=== PATIENT | male | born 1955 | race Caucasian/White ===

== ENCOUNTER 2023-02-19 17:53 | Emergency (ER) | payer MEDICARE, MEDICAID, SELFPAY ==
--- NOTE | ~2023-02-19 | CT_ITS ---
EXAMINATION: CT HEAD WITHOUT CONTRAST CLINICAL INFORMATION: Fall. EtOH. COMPARISON: CT head from 11/14/2014. TECHNIQUE: Contiguous axial imaging was performed from the skull base to vertex without intravenous administration of contrast. This CT examination was performed using dose optimization techniques as appropriate, variously including the following: *Automated exposure control. *Adjustment of mA and/or kV according to patient size (this includes techniques or standardized protocols for targeted exams where dose is matched to indication/reason for exam; i.e. extremities or head). *Use of iterative reconstruction technique. DLP: 805 mGy-cm FINDINGS: There is chronic cystic encephalomalacia within the left frontoparietal lobes with associated volume loss. No additional loss of العلي-white matter differentiation. No evidence of acute intracranial hemorrhage. Scattered and partially confluent hypoattenuation in the periventricular and deep white matter are consistent with moderate microangiopathy. Proportional prominence of the ventricles and sulcal spaces without evidence of obstructive hydrocephalus. Chronic calcified lesion within the inferior aspect of the fourth ventricle. No abnormal mass effect or midline shift. No extra-axial fluid collections. No acute soft tissue or osseous abnormalities. Mild mucosal thickening of the paranasal sinuses. The mastoid air cells and middle ear cavities are clear. The patient is a dentulous. CT/CT head/brain wo IV con IMPRESSION: 1. No evidence of acute intracranial hemorrhage or edematous territorial infarction. 2. Chronic cystic encephalomalacia within the left frontoparietal lobes. Moderate underlying microangiopathy and generalized cerebral volume loss.
[2023-02-19 18:04] VITALS: BP 162/84; PULSE 62; O2SAT 97
[2023-02-19 18:31] VITALS: BP 144/68; PULSE 48; RESP 16; TEMP 37.2; O2SAT 97; BMI 21.2
--- NOTE | 2023-02-19 18:32 | ECG_ITS ---
Test Reason : ETOH/SUBSTANCE Blood Pressure : / mmHG Vent. Rate : 091 BPM Atrial Rate : 091 BPM P-R Int : 164 ms QRS Dur : 096 ms QT Int : 386 ms P-R-T Axes : 066 -13 085 degrees QTc Int : 474 ms Sinus rhythm with frequent Premature ventricular complexes in a pattern of bigeminy Possible Left atrial enlargement Left ventricular hypertrophy with repolarization abnormality ( Nate product ) Abnormal ECG When compared with ECG of 02-JAN-2014 15:49, Premature ventricular complexes are now Present Referred By: Xenia Ellis Electronically Signed By:BANDAR JAMES
--- NOTE | 2023-02-19 18:32 | PC.NURSE ---
per ems - pt's walker was covered in feces and left at the [employer] in [place]
--- NOTE | 2023-02-19 18:34 | ED.GENADULT ---
HPI - General Adult General Chief complaint: ETOH/Substance Use Stated complaint: Fall w/ NO head strike, ETOH? Time Seen by Provider: 02/19/23 18:05 Source: patient and EMS Mode of arrival: EMS Limitations: other (CVA) History of Present Illness HPI narrative: Patient comes to the emergency room via ambulance. Alcohol intoxication suspected per EMS. Patient was found in a [employer] [place] in [place]. Patient had an unwitnessed fall, patient was found covered in feces. Patient states that he feels well. Patient is poor historian, patient has history of CVA. Patient states that he left his walker at the [employer] store Related Data Home Medications Medication Instructions Recorded Confirmed multivitamin 1 tab PO DAILY 09/11/20 09/10/21 beta-sitosterol 125 mg-vit D3 10 tab PO 09/10/21 09/10/21 xeu-laoosxws-pfoasleus 250 mg tablet krill 350 mg-omega-3 90 mg-dha 24 cap PO 09/10/21 09/10/21 mg-epa 50 yt-kpjbskf-norpb capsule (MegaRed Ellsworth-3 Krill Oil) Previous Rx's Medication Instructions Recorded tadalafil 2.5 mg tablet (Cialis) 2.5 mg PO DAILY 30 days #30 tabs 09/11/20 aspirin 81 mg tablet,delayed 81 mg PO DAILY 90 days #90 tabs 09/10/21 release hydralazine 100 mg tablet 100 mg PO BID 90 days #180 tabs 09/10/21 lisinopril 40 mg tablet 40 mg PO DAILY 90 days #90 tabs 09/10/21 triamcinolone acetonide 0.1 % 1 appl topical DAILY 30 days #80 09/10/21 topical cream grams sennosides 8.6 mg tablet (senna) 8.6 mg PO BEDTIME PRN constipation 04/04/22 90 days #90 tabs amlodipine 10 mg tablet 10 mg PO DAILY 90 days #90 tabs 06/21/22 omeprazole 20 mg capsule,delayed 20 mg PO DAILY 90 days #90 caps 06/21/22 release Allergies Allergy/AdvReac Type Severity Reaction Status Date / Time No Known Allergies Allergy Verified 02/19/23 18:30 Review of Systems Review of Systems: Yes Other (Patient is poor historian) [facility] Past Medical History Medical History Hypertension Psoriasis Stroke Surgical History History of inguinal hernia repair Family History Family History Father Cancer Mother Lung cancer Social History Social History Alcohol intake: current Alcohol intake frequency: a few times a week Alcohol type: hard liquor Patient Tobacco Use Status: Current someday Tobacco user Tobacco use type: Cigarette Cigarettes Per Day: 3 Smoked in Last 30 Days: No Use of substances other than those prescribed or required for medical reasons: No Advance Directives: No Advance Directives Information Provided: No Physical Exam ED Vital Signs: Vital Signs - 24 hr 02/19/23 18:31 02/19/23 18:35 02/19/23 20:00 Temperature 99.0 F 99.0 F 98.6 F Pulse Rate 48 L 56 42 L Respiratory Rate 16 16 14 Blood Pressure 144/68 H 144/68 H 125/69 Pulse Oximetry 97 97 97 Oxygen Delivery Method Room Air Room Air Room Air BMI result Body Mass Index 21.2 Const Other: Appearance: Alert. Oriented X3. No acute distress. Patient seems to be intoxicated? Eyes: Pupils equal, round and reactive to light. ENT: Pharynx normal. Dry oral mucosa Neck: Normal inspection. Neck supple. No lymph nodes noted. No crepitus CVS: Normal heart rate and rhythm. Pulses normal. Normal S1 and S2 Respiratory: No respiratory distress. Breath sounds normal. No Wheezing. No rales Abdomen: Soft and nontender. No rigidity. No distention. Patient covered in diarrhea Skin: Skin warm and dry. Normal skin color. Normal skin turgor. Extremities: No lower extremity edema. No Lacerations. 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 Medications Administered Generic Name Dose Route Start Last Admin Trade Name Freq PRN Reason Stop Dose Admin Sodium Chloride 2,000 mls @ 999 mls/hr 02/19/23 21:10 02/19/23 21:34 Ns IVCONT 02/19/23 23:10 999 mls/hr .Q2H1M ONE Administration Medical Decision Making Medical Decision Making [facility] Narrative: -my interpretation of labs: Patient has a normal white blood cell count, patient is slightly anemic. Creatinine 1.65, likely secondary to diarrhea. Patient is being hydrated with IV fluids. Plan: We will recheck labs, if creatinine improves, patient will need to be seen by case management and physical therapy. Otherwise, patient should be admitted. -patient's alcohol level is negative. CT scan does not show any acute abnormality, only chronic changes. -I do not believe that patient is safe to be discharged home. Patient cannot take care of himself. -iris spoke with case management. If patient cannot be admitted, case management will see the patient -sign out given to Dr. cordero Differential Diagnosis Differential Diagnoses: The differential diagnosis associated with the presentation includes (Diarrhea, encephalopathy, dehydration) Admission/Observation Consideration of admission/observation: Escalation of care including admission/observation considered Lab Data [facility] Lab Attestation statement: I reviewed the patient's lab results. 02/19/23 19:36 02/19/23 19:36 Labs: Lab Results 02/19/23 02/19/23 02/19/23 Range/Units 19:36 19:36 19:36 WBC 10.7 (4.8-10.8) X10*3/uL RBC 4.17 L (4.60-5.80) X10*6/uL Hgb 12.7 L (14.0-18.0) g/dl Hct 37.4 L (42.0-52.0) % MCV 89.7 (80.0-98.0) fL MCH 30.5 (27.0-33.0) pg MCHC 34.0 (31.0-36.0) g/dl RDW 14.9 (11.0-16.0) % Plt Count 280 (160-400) X10*3/uL MPV 10.6 (9.4-12.4) fL Immature Gran % (Auto) 0.2 (0.0-0.4) % Neut % (Auto) 79.9 H (45-73) % Lymph % (Auto) 8.8 L (20-40) % Morrow % (Auto) 10.0 (2-11) % Eos % (Auto) 0.4 (0-4) % Baso % (Auto) 0.7 (0-2) % Lymph # (Auto) 0.9 L (1.2-4.9) X10*3/uL Morrow # (Auto) 1.1 (0.1-1.2) X10*3/uL Eos # (Auto) 0.0 (0.0-0.4) X10*3/uL Baso # (Auto) 0.1 (0.0-0.2) X10*3/uL Abs Immat Gran (auto) 0.02 (0.00-0.03) X10*3/uL Absolute Neuts (auto) 8.6 H (2.0-8.3) x10*3/uL Absolute Nucleated RBC 0.000 (0.0-0.012) X10*3/uL Nucleated RBC % (auto) 0.0 (0.0-0.2) /100WBC PT 11.5 (11.1-13.3) SEC INR 0.9 (0.9-1.1) Sodium 138 (135-145) mmol/L Potassium 3.5 (3.3-5.1) mmol/L Chloride 103 (96-108) mmol/L Carbon Dioxide 25 (22-29) mmol/L Anion Gap 14 (12-20) BUN 43 H (9-16) mg/dL Creatinine 1.65 H (0.5-1.4) mg/dL Estim Creat Clear Calc 41.1 Estimated GFR 42 Random Glucose 145 H (60-115) mg/dL Calcium 9.5 (8.4-10.2) mg/dL Magnesium 2.4 (1.6-2.6) mg/dL Total Bilirubin 0.4 (0.0-1.0) mg/dL Direct Bilirubin 0.1 (0.0-0.5) mg/dL AST 13 (5-37) U/L ALT 13 (0-40) U/L Alkaline Phosphatase 50 (39-117) U/L Troponin I High Sens (<3.5-35.0) ng/L Total Protein 6.7 (6.5-8.0) g/dL Albumin 4.2 (3.5-5.0) g/dL Ethyl Alcohol mg/dL 02/19/23 02/19/23 Range/Units 19:36 19:36 WBC (4.8-10.8) X10*3/uL RBC (4.60-5.80) X10*6/uL Hgb (14.0-18.0) g/dl Hct (42.0-52.0) % MCV (80.0-98.0) fL MCH (27.0-33.0) pg MCHC (31.0-36.0) g/dl RDW (11.0-16.0) % Plt Count (160-400) X10*3/uL MPV (9.4-12.4) fL Immature Gran % (Auto) (0.0-0.4) % Neut % (Auto) (45-73) % Lymph % (Auto) (20-40) % Morrow % (Auto) (2-11) % Eos % (Auto) (0-4) % Baso % (Auto) (0-2) % Lymph # (Auto) (1.2-4.9) X10*3/uL Morrow # (Auto) (0.1-1.2) X10*3/uL Eos # (Auto) (0.0-0.4) X10*3/uL Baso # (Auto) (0.0-0.2) X10*3/uL Abs Immat Gran (auto) (0.00-0.03) X10*3/uL Absolute Neuts (auto) (2.0-8.3) x10*3/uL Absolute Nucleated RBC (0.0-0.012) X10*3/uL Nucleated RBC % (auto) (0.0-0.2) /100WBC PT (11.1-13.3) SEC INR (0.9-1.1) Sodium (135-145) mmol/L Potassium (3.3-5.1) mmol/L Chloride (96-108) mmol/L Carbon Dioxide (22-29) mmol/L Anion Gap (12-20) BUN (9-16) mg/dL Creatinine (0.5-1.4) mg/dL Estim Creat Clear Calc Estimated GFR Random Glucose (60-115) mg/dL Calcium (8.4-10.2) mg/dL Magnesium (1.6-2.6) mg/dL Total Bilirubin (0.0-1.0) mg/dL Direct Bilirubin (0.0-0.5) mg/dL AST (5-37) U/L ALT (0-40) U/L Alkaline Phosphatase (39-117) U/L Troponin I High Sens 16.4 (<3.5-35.0) ng/L Total Protein (6.5-8.0) g/dL Albumin (3.5-5.0) g/dL Ethyl Alcohol < 10 mg/dL Independent Interpretation I performed an independent interpretation of an: CT Scan (No intracranial bleed) Radiology Impression Discussion of test interpretation with radiology: I have reviewed the radiologist's reading. Radiologist Impression: FINDINGS: There is chronic cystic encephalomalacia within the left frontoparietal lobes with associated volume loss. No additional loss of العلي-white matter differentiation. No evidence of acute intracranial hemorrhage. Scattered and partially confluent hypoattenuation in the periventricular and deep white matter are consistent with moderate microangiopathy. Proportional prominence of the ventricles and sulcal spaces without evidence of obstructive hydrocephalus. Chronic calcified lesion within the inferior aspect of the fourth ventricle. No abnormal mass effect or midline shift. No extra-axial fluid collections. No acute soft tissue or osseous abnormalities. Mild mucosal thickening of the paranasal sinuses. The mastoid air cells and middle ear cavities are clear. The patient is a dentulous. ? CT/CT head/brain wo IV con IMPRESSION: 1.? No evidence of acute intracranial hemorrhage or edematous territorial infarction. 2.? Chronic cystic encephalomalacia within the left frontoparietal lobes. Moderate underlying microangiopathy and generalized cerebral volume loss. ? External Record Review External record reviewed: Office record (Patient does have past medical history of CVA with right upper and lower body chronic deficits, hypertension, psoriasis, GERD) Chronic Conditions Patient?s care impacted by: Other (CVA) Social Determinants Patient?s care significantly limited by Social Determinants of Health including: Other Social Determinant of Health Critical Care Time Critical Care Time Critical Care Time: Yes Total Critical Care Time: 60 Attestation: I have personally provided critical care time. Time includes review of lab data, radiology results, discussion with consultants, and monitoring for potential decompensation. Intervention performed as documented. Discharge Plan Discharge Clinical Impression: Diarrhea, Acute dehydration Patient Disposition: Still a Patient Prescriptions: No Action sennosides [senna] 8.6 mg tablet 8.6 mg PO BEDTIME PRN (Reason: constipation) 90 Days Qty: 90 0RF omeprazole 20 mg capsule,delayed release(DR/EC) 20 mg PO DAILY 90 Days Qty: 90 1RF amlodipine 10 mg tablet 10 mg PO DAILY 90 Days Qty: 90 1RF multivitamin Tablet 1 tab PO DAILY tadalafil [Cialis] 2.5 mg tablet 2.5 mg PO DAILY 30 Days Qty: 30 0RF nlgs-bugih-L0-minerals-cranber 125 mg-10 mcg- 250 mg tablet PO MegaRed Ellsworth-3 Krill Oil 714-78-06-50 mg capsule PO triamcinolone acetonide 0.1 % cream 1 appl topical DAILY 30 Days Qty: 80 3RF hydralazine 100 mg tablet 100 mg PO BID 90 Days Qty: 180 3RF lisinopril 40 mg tablet 40 mg PO DAILY 90 Days Qty: 90 3RF aspirin 81 mg tablet,delayed release (DR/EC) 81 mg PO DAILY 90 Days Qty: 90 3RF
[2023-02-19 18:35] VITALS: BP 144/68; PULSE 56; RESP 16; TEMP 37.2; O2SAT 97
--- NOTE | 2023-02-19 18:40 | PC.NURSE ---
pt a&ox3, vss, pt comes in after being found at [employer] in [place] d/t unwitnessed fall. pt and pt's walker covered in feces upon ems arrival. pt cleaned and belongings in belongings bag. gerardo attempt to wash pt's clothes in the pod if washer/dryer is available. call ospina within reach.
[2023-02-19 19:43] LABS: MANUAL DIFF FLAG NO
[2023-02-19 19:44] LABS: Basophils Absolute Auto 0.1 X10*3/uL (0.0-0.2); Basophils Percent Auto 0.7 % (0-2); Eosinophils Percent Auto 0.4 % (0-4); Hematocrit 37.4 % (42.0-52.0); Hemoglobin 12.7 g/dl (14.0-18.0); Imm Gran Abs Auto 0.02 X10*3/uL (0.00-0.03); Imm Gran Pct Auto 0.2 % (0.0-0.4); Lymphocytes Absolute Auto 0.9 X10*3/uL (1.2-4.9); Lymphocytes Percent Auto 8.8 % (20-40); Mean Corpuscular Hemoglobin 30.5 pg (27.0-33.0); Mean Corpuscular Volume 89.7 fL (80.0-98.0); Mean Platelet Volume 10.6 fL (9.4-12.4); Monocytes Absolute Auto 1.1 X10*3/uL (0.1-1.2); Neutrophils Absolute Auto 8.6 x10*3/uL (2.0-8.3); Neutrophils Percent Auto 79.9 % (45-73); Platelet Count 280 X10*3/uL (160-400); Red Blood Count 4.17 X10*6/uL (4.60-5.80); Red Cell Distribution Width 14.9 % (11.0-16.0); White Blood Count 10.7 X10*3/uL (4.8-10.8)
[2023-02-19 19:51] LABS: INTERNATIONAL NORM RATIO 0.9 (0.9-1.1); Prothrombin Time 11.5 SEC (11.1-13.3)
[2023-02-19 20:00] VITALS: BP 125/69; PULSE 42; RESP 14; TEMP 37; O2SAT 97
[2023-02-19 20:00] LABS: Ethanol < 10 mg/dL
[2023-02-19 20:03] LABS: Alanine Aminotransferase 13 U/L (0-40); Albumin Level 4.2 g/dL (3.5-5.0); Alkaline Phosphatase 50 U/L (39-117); Anion Gap 14 (12-20); Aspartate Amino Transferase 13 U/L (5-37); Bilirubin Direct 0.1 mg/dL (0.0-0.5); Bilirubin Total 0.4 mg/dL (0.0-1.0); Blood Urea Nitrogen 43 mg/dL (9-16); Calcium 9.5 mg/dL (8.4-10.2); Carbon Dioxide 25 mmol/L (22-29); Chloride 103 mmol/L (96-108); Creatinine Clr Calc Pharmacy 41.1; Estimated Glomerular Filt Rate 42; Glucose Random 145 mg/dL (60-115); Magnesium 2.4 mg/dL (1.6-2.6); Potassium 3.5 mmol/L (3.3-5.1); Sodium 138 mmol/L (135-145); Total Protein 6.7 g/dL (6.5-8.0)
[2023-02-19 20:11] LABS: Troponin-I High Sensitivity 16.4 ng/L (<3.5-35.0)
--- NOTE | 2023-02-19 21:31 | MHC.EDTECH ---
Patient wet with urine. Changed pads and wiped patient clean. Gave patient a warm blanket.
[2023-02-19] MEDS: 0.9 % Sodium Chloride 2,000 ML 999 ML IVCONT (21:34)
--- NOTE | 2023-02-19 21:46 | PC.NURSE ---
iv fluids infusing
--- NOTE | 2023-02-19 23:17 | MHC.CM.ED ---
Met with patient at request of Dr. Ellis. Pt is very unkempt, with unclean hair and long fingernails, with dried feces under them. Pt has no teeth. Pt has an old CVA, without use of his left hand. Speech can be garbled and thick at times. Did live at [facility], but hasn't lived there in a long time. Pt sometimes rambles with his speech. States he lives with his cousin Joyce Meraz and her at [address] [place] [address] in [place]. States uses a walker and is mostly independent. States his cousin is his TOOL STORAGE ATTENDANT, but she doesn't do much for him. States he pays her $673 per month for rent. Pt admits to drinking a little and smoking a little pot . Denies any problems with substance abuse. Tox screen negative. ETOH <10. Pt often times joking and laughing during interview. States he fell at the store because his walker got stuck in a grate. States he was covered in poop because he just kept going, because his cousin does not believe in laxatives. Pt states he is okay at home and would like to get a section 8 housing. Pt does not have a phone. Pt thinks Joyce's phone number might be [phone]. Due to lateness of hour (2300) CM did not call Joyce, but will need to try and contact her in the morning. CM will need to speak with cousin to determine if patient is safe to return home. A brother, Phi is listed as a contact, but patient states he hasn't spoken to him in a while and that he thinks he lives in [place]. PT is pending. CM requested regular diet for patient. Agreeable to staying overnight. PCP is Dr. Richards. Will need to call in am for last office visit and medication list. Pt states he takes and orange Pill and ASA. When asked, patient thinks it might be for his blood pressure. CM will follow for discharge needs. No referrals made at this time.
[2023-02-19 23:55] LABS: Anion Gap 13 (12-20); Blood Urea Nitrogen 35 mg/dL (9-16); Calcium 8.9 mg/dL (8.4-10.2); Carbon Dioxide 21 mmol/L (22-29); Chloride 107 mmol/L (96-108); Creatinine Clr Calc Pharmacy 52.1; Estimated Glomerular Filt Rate 55; Glucose Random 131 mg/dL (60-115); Potassium 4.3 mmol/L (3.3-5.1); Sodium 137 mmol/L (135-145)
[2023-02-20] VITALS (8 sets, daily range): BP systolic 128–158; BP diastolic 64–87; PULSE 44–80; RESP 12–20; TEMP 36.3–37.3; O2SAT 96–99
--- NOTE | 2023-02-20 06:24 | MHC.EDTECH ---
Patient found to be incontinent of urine. T/w and field service analystWeston House, cleaned Pt, replaced underpads and hospital gown and boosted Pt. Vital signs taken. Call ospina placed within reach.
[2023-02-20 06:28] LABS: Appearance Urine Clear; Color Urine Yellow; Glucose Urine UA Negative (Negative); Leukocyte Esterase Urine Negative (Negative); Nitrite Urine Negative (Negative); Urine Blood Negative (Negative); Urine Ketones Negative (Negative); Urine Protein Negative (Neg-Trace)
--- NOTE | 2023-02-20 07:13 | MHC.EDTECH ---
Patient setup for breakfast.
--- NOTE | 2023-02-20 08:10 | PC.NURSE ---
PT SEEN BY PHYSICAL THERAPY, PT AWARE OF PLAN OF CARE.
--- NOTE | 2023-02-20 08:53 | PC.NURSE ---
PT'S COUSIN KELSY RABAGO ([phone]) CALLED AND WAS UPDATED ON PT. PT ALSO SPOKE WITH HIS COUSIN.
--- NOTE | 2023-02-20 10:09 | PC.NURSE ---
PT IS A/O X 3 NO SOB/KEYA NOTED SPEAKS IN FULL SENTENCES. LUNGS - CTA. HEART SOUNDS - IRREGULAR. ABD SOFT AND NON-TENDER. CIWA - ZERO. PT DENIES ANY PAIN/DISC. NO EDEMA NOTED. PT AWARE OF PLAN OF CARE.
[2023-02-20 10:16] LABS: COVID-19 Test Negative (Negative); IDNOW Serial# BCCEAD1C
--- NOTE | 2023-02-20 11:27 | MHC.EDTECH ---
Patient found to be incontinent of urine. Patient given roberto-care, clean hospital gown, underpads and blanket given. Patient repositioned in bed. Vitals taken, call ospina within reach.
--- NOTE | 2023-02-20 12:54 | MHC.CM.ED ---
Patient remains in ER. Physical therapy eval completed. Short term rehab is recommended. Received telephone call from patient's cousin, Markus. He can be reached via telephone at [phone]. Patient lives with Markus's sister, Joyce. Joyce can be reached via telephone at [phone]. [facility]us [facility] for [facility] to go to for STR because of it's location. Met with patient in regards to discharge planning. Joyce at bedside. PT rec discussed. Patient and Joyce agreeable to referral to [facility]. PVR is concerned about patient withdrawing from ETOH use. CIWA is currenty 0. PVR wants to re-review tomorrow to make sure patient is not at risk for ETOH withdrawal. Patient and Joyce aware. Continue to monitor for d/c needs.
--- NOTE | 2023-02-20 13:06 | PC.NURSE ---
RN TO RN REPORT GIVEN TO [facility]. PT TO BE TRANSPORTED TO [facility]. PT AWARE OF PLAN OF CARE.
--- NOTE | 2023-02-20 15:12 | PC.NURSE ---
pt brought over to overflow bed 2, patient a&ox3, vss, ciwa 0, skin intact, rt arm contracture from old stroke, pt aware he needs to provide a urine, fall precautions intact, call ospina within reach, will continue to monitor.
--- NOTE | 2023-02-20 17:30 | PHA.MEDREC ---
Pharmacy Consult ? Medication Reconciliation Pharmacy has completed the medication reconciliation. Patient reported he takes 1 little pill and 1 big pill and an aspirin. Patient has no idea what the medicaitons are for. The most recently filled medications were amlodipine and omeprazole both on september 26, 2022. Ely Gonzáles, PharmD
[2023-02-20 17:55] LABS: Appearance Urine Clear; Color Urine Yellow; Glucose Urine UA 500 mg/dL (Negative); Leukocyte Esterase Urine Negative (Negative); Nitrite Urine Negative (Negative); PH 6.5 (5.0-9.0); Urine Blood Negative (Negative); Urine Ketones Negative (Negative); Urine Protein Negative (Neg-Trace)
[2023-02-20 18:13] LABS: Amphetamine Screen Urine Not Detected (Not Detect); Barbiturates, Urine Not Detected (Not Detect); Benzodiazepines Screen Urine Not Detected (Not Detect); Cannabinoid Screen Urine Not Detected (Not Detect); Cocaine Screen Urine Not Detected (Not Detect); Fentanyl, urine Not Detected (Not Detect); Opiate Screen Urine Not Detected (Not Detect); Phencyclidine Screen Urine Not Detected (Not Detect)
--- NOTE | 2023-02-20 18:18 | PC.NURSE ---
patient a&ox3 and has been demanding, pt requesting turning/positioning often stating he is not comfortable in the bed despite our best efforts to make him comfortable, pt not wanting blankets on him and requesting assistance to use the phone. Pt wants his home walker and has been calling family members to bring the walker into the hospital even though we have explained that a walker would be provided to him if/when pt came to see him.
[2023-02-21 06:38] VITALS: BP 133/87; PULSE 59; RESP 18; TEMP 36.8; O2SAT 97
--- NOTE | 2023-02-21 08:32 | MHC.CM.ED ---
Patient remains in ER. [facility] Continue to monitor for d/c needs.
--- NOTE | 2023-02-21 12:21 | PC.NURSE ---
pt aox4, right sided weaknes due to past stroke, urinating into urinal independently, reporting no pain, CIWA 0, will ctm
--- NOTE | 2023-02-21 14:15 | MHC.CM.ED ---
Patient remains in ER. [facility] is able to offer a bed. MDS completed, faxed to [facility] and sent to [facility]. Patient can leave ER at 230pm. Trisha OWENS booked. [facility] with chart. Patient, Lorene BAGLEY and Danielle HENDERSON aware. Attemtped to notify patient's cousin, Joyce, via telephone at [phone]. Left message requesting return telephone call. Spoke with patient's cousin, Harpreet, via telephone at [phone]. Harpreet verbalized understanding. HCP completed, signed and witnessed. Original given to patient. Copy placed in chart. Continue to monitor for d/c needs.
== END 2023-02-21 14:57 | disposition other institution (70) ==
PROVIDERS: Internal Medicine; Physician Assistant; Emergency Provider Emergency Medicine; PCP Internal Medicine
DX: F10.129 Alcohol abuse with intoxication, unspecified (principal); R19.7 Diarrhea, unspecified; E86.0 Dehydration; R94.31 Abnormal electrocardiogram [ECG] [EKG]; R26.81 Unsteadiness on feet; R51.9 Headache, unspecified; F17.210 Nicotine dependence, cigarettes, uncomplicated; Z71.6 Tobacco abuse counseling; Z20.822 Contact with and (suspected) exposure to COVID-19; Z20.828 Contact with and (suspected) exposure to other viral communicable diseases; Z79.899 Other long term (current) drug therapy
CPT/HCPCS: 36415; 70450; 80048; 80076; 80307; 81003; 83735; 84484; 85025; 85610; 87635; 93005; 97163; 99285

== ENCOUNTER 2023-06-19 15:02 | Outpatient (AMB) | payer MEDICARE, MEDICAID, SELFPAY ==
--- NOTE | 2023-06-19 15:06 | MHC.PC.OV ---
Vital Signs 06/19/23 15:08 Height 5 ft 8 in Weight 148 lb 12.992 oz BMI 22.6 BP 152/90 H Blood Pressure Location Lt brachial Position Sitting Respiration 17 Pulse 88 Pulse Source Palpation Intake Visit Reasons: Follow up on care, medication review Intake Note: Pt is here for medication and care F/U. Pt requesting PT order to [facility]/[place]. Fax order to [phone]. 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 Accompanied by: Self / Same As Patient Allergies No Known Allergies Allergy (Verified 06/19/23 15:26) Medication List - Last Reconciled 06/19/23 by Surya Izquierdo PA-C [adult diapers As directed] amlodipine 10 mg PO DAILY 90 days aspirin 81 mg PO DAILY 90 days docusate sodium (Colace) 100 mg PO DAILY PRN hydralazine 100 mg PO BID lisinopril 40 mg PO DAILY multivitamin (Daily Multi-Vitamin tablet) 1 tab PO DAILY omeprazole 20 mg PO DAILY 90 days Tobacco use date assessed: 06/19/23 Fall risk assessment: No Falls in past year Last assessed Fall Risk: 06/19/23 Dental Screening Dental Screen Date: 06/19/23 Did you have a dental visit in the last 12 months?: No Did you have a dental problem in the last 6 months where you did not have access to dental care?: No Was dental information given to patient?: Patient declined HPI Follow up on care, medication review HPI Details Patient is a 68 year here today for a follow-up visit. Have not seen patient for over a year. Patient has a past medical history significant for CVA, hypertension, plaque psoriasis, GERD. VERY POOR HISTORIAN- SEEMS NOT INTERESTED IN TAKING CARE OF HIS HEALTH OR DISCUSSING HIS HEALTH AT ALL. . CHRONIC MEDICAL CONDITIONS-> History of CVA: Continues with blood pressure control on aspirin. He is unsure what year he had is CVA though is left with right-sided neural muscular weakness. Uses a walker for ambulation assistance. .. Hypertension: Today's blood pressure slightly elevated in office. Continues on multiple medications to control his blood pressure. He does not monitor his blood pressure at home. Otherwise denies any recent headaches, chest discomfort, vision issues. .. Plaque psoriasis: Patient has extensive plaque psoriasis over extremities. Does use triamcinolone cream with decent affect. Offered referral to Dermatology though he declines. Colon cancer screening: Continues to decline formal colonoscopy, seems to have done the Cologuard though samples were not enough. Needs to do new Cologuard. [facility] Medical History Stroke Hypertension Psoriasis Surgical History History of inguinal hernia repair Family History Father Cancer Mother Lung cancer Social History Housing: Apartment Alcohol intake: current Alcohol intake frequency: a few times a week Alcohol type: hard liquor Patient Tobacco Use Status: Current someday Tobacco user Tobacco use type: Cigarette Cigarettes Per Day: 3 Advance Directives Date on File: 02/21/23 Cognitive needs: Yes Hearing needs: No Vision needs: Yes Questionnaire PHQ-9 Over the last 2 weeks, how often have you been bothered by any of the following problems? 1. Little interest or pleasure in doing things: not at all 2. Feeling down, depressed, or hopeless: not at all 3. Trouble falling or staying asleep, or sleeping too much: not at all 4. Feeling tired or having little energy: not at all 5. Poor appetite or overeating: not at all 6. Feeling bad about yourself - or that you are a failure or have let yourself or your family down: not at all 7. Trouble concentrating on things, such as reading the newspaper or watching television: not at all 8. Moving or speaking so slowly that other people could have noticed. Or the opposite - being so fidgety or restless that you have been moving around a lot more than usual: not at all 9. Thoughts that you would be better off or of hurting yourself in some way: not at all Total score: 0 Depression Screening Interpretation: Negative Depression Screening Done: Yes 72882 - PHQ-9 Billing: Yes Source: Developed by Drs. Edwin Nolasco, Nissa Gonzalez, Kirk Redd and colleagues, with an educational kimmie from [employer]. Thrive Questionnaire Date Thrive assessed: 06/19/23 I am a: Patient What is your living situation today?: I have a steady place to live Within the past 12 months, did the food you bought not last and you didn't have the money to get more?: Never true Within the past 12 months, did you worry whether your food would run out before you got money to buy more?: Never true Do you have trouble paying for medicines?: No Do you have trouble getting transportation to medical appointments?: No Do you have trouble paying your heating and electricity bill?: No Do you have trouble taking care of your child, family member or friend?: No Do you have trouble with day-to-day activities such as bathing, preparing meals, shopping, managing finances, etc.?: No Are you currently unemployed and looking for a job?: No Are you interested in more education?: No Please select the resources that you would like help with: None Currently or been in a relationship where the following occur: no concerns reported AUDIT C Alcohol Use Questionnaire (AUDIT-C) 1. How often do you have a drink containing alcohol?: Monthly or less 2. How many drinks containing alcohol do you have on a typical day when you are drinking?: 1 or 2 3. How often do you have six or more drinks on one occasion?: Never Total Score: 1 MARGARITA-7 AMB Questionnaire MARGARITA-7 Date MARGARITA - 7 assessed: 06/19/23 Feeling nervous, anxious, or on edge: 0 = Not at all Not being able to stop or control worryin = Not at all Worrying too much about different things: 0 = Not at all Trouble relaxin = Not at all Being so restless that it is hard to sit still: 0 = Not at all Becoming easily annoyed or irritable: 0 = Not at all Feeling afraid as if something awful might happen: 0 = Not at all Total MARGARITA-7 score (0-4 normal; 5-9 mild; 10-14 moderate; 15-21 severe): 0 Source: Developed by Drs. Edwin Nolasco, Nissa Gonzalez, Kirk Redd and colleagues, with an educational kimmie from [employer] MARGARITA-7 Assessment Billing MARGARITA-7 Assessment Tool: MARGARITA-7 Assessment 16659 Review of Systems Const Denies headache(s) Eyes Denies loss of vision ENT Denies vertigo, Denies dizziness, Denies headache(s) and Denies sore throat Card Denies chest pain, Denies leg edema and Denies lightheadedness Resp Denies cough, Denies hemoptysis and Denies wheezing GI Denies abdominal pain, Denies melena, Denies constipation, Denies diarrhea and Denies vomiting Denies dysuria, Denies urinary frequency and Denies urinary urgency Musc Denies arthralgias, Denies joint swelling, Denies numbness and Denies tingling Neuro Denies Abnormal speech present, Denies behavioral changes, Denies vertigo, Denies dizziness, Denies headache(s), Denies loss of vision, Denies memory loss, Denies numbness and Denies tingling Psych Denies anxiety, Denies behavioral changes, Denies depression, Denies memory loss and Denies panic attacks Tru/Lymph Denies easy bleeding and Denies easy bruising Aller/Immun Denies wheezing Physical exam (Primary Care) Vital Signs: Last Vital Signs Pulse 88 06/19/23 15:08 Resp 17 06/19/23 15:08 BP 152/90 H 06/19/23 15:08 BMI result Body Mass Index 22.6 Tobacco/Smoking Status: Tobacco use Status Tobacco use date assessed 06/19/23 06/19/23 15:22 Patient Tobacco Use Status Current someday Tobacco 06/19/23 15:07 Tobacco use type Cigarette 06/19/23 15:07 PHQ-9: PHQ-9 Score PHQ-9: Total score 0 06/19/23 15:24 Depression Screening Interpretation: Negative Thrive Assessment: Date of Thrive Assessment Date Thrive assessed 06/19/23 06/19/23 15:22 Currently or been in a relationship where the following occur: no concerns reported Const General: healthy appearing, no acute distress, alert and awake Nutritional Appearance: well nourished Orientation/consciousness: oriented to person, oriented to place and oriented to time HENMT Ears: TM's normal bilaterally General nose exam: Normal nasal mucous membranes and turbinates present Eyes Conjunctivae: conjunctivae normal Sclerae: sclerae normal Pupils: Equal, round and reactive pupils present Neck Neck: Yes no lymphadenopathy and Yes no JVD Thyroid: Thyroid normal Carotids: no bruits Resp Effort & Inspection: normal respiratory effort and not tachypneic Auscultation: no crackles, no rales, no rhonchi and no wheezes Cardio Rate: regular rate Rhythm: regular rhythm Heart sounds: no murmurs and normal S1 and S2 GI Palpation (GI): Soft to palpation, nontender, no hepatomegaly and no splenomegaly Auscultation: normal bowel sounds Skin General skin exam: no rashes or lesions noted and dry skin Neuro General: oriented to person, oriented to place and oriented to time Cranial nerves: Yes Equal, round and reactive pupils present Speech: No Abnormal speech present Gait exam (Neuro): Normal gait present Motor exam (neuro): no tremor noted Extrem Right upper extremity: full ROM Left upper extremity: full ROM Right lower extremity: full ROM; no edema Left lower extremity: full ROM; no edema Psych Mental Status: mental status grossly normal Speech and movement: Normal speech and movement present Affect: normal affect Attitude: cooperative Thought process: Normal thought process present Assessment and Plan Assessment & Plan (1) Hypertension: Comment: Hx of stroke with right side weakness Code(s): I10 - Essential (primary) hypertension Qualifiers: Hypertension type: essential hypertension Qualified Code(s): I10 - Essential (primary) hypertension Plan: Blood pressure slightly elevated today in office. When asked he denies any chest pain, shortness of breath, vision issues or headaches. Will continue him on his current dose of amlodipine, lisinopril and hydralazine. Advised to monitor blood pressure at home (2) Psoriasis: Code(s): L40.9 - Psoriasis, unspecified Plan: Patient has pretty severe plaque psoriasis though has not interested in seeing dermatology for further advanced treatment. Will continue topical steroid treatment (3) H/O: CVA (cerebrovascular accident): Code(s): Z86.73 - Personal history of transient ischemic attack (TIA), and cerebral infarction without residual deficits Plan: Had a stroke many years ago and has been left with right sided muscular deficit. Continue to manage blood pressure and continue low-dose aspirin therapy. Orders: Orders Microalbumin, Random (w Creat) 06/19/23 I10 - Essential (primary) hypertension Prostate Specific Antigen Scr 06/19/23 I10 - Essential (primary) hypertension, Z12.5 - Encounter for screening for malignant neoplasm of prostate Basic Metabolic Panel 06/19/23 I10 - Essential (primary) hypertension Complete Blood Count no Diff 06/19/23 I10 - Essential (primary) hypertension Medications: New hydralazine 100 mg PO BID 90 days 180 tabs 1RF I10 - Essential (primary) hypertension lisinopril 40 mg PO DAILY 90 days 90 tabs 1RF I10 - Essential (primary) hypertension Refilled docusate sodium (Colace) 100 mg PO DAILY PRN 30 caps 0RF constipation I10 - Essential (primary) hypertension omeprazole 20 mg PO DAILY 90 days 90 caps 1RF K21.9 - Gastro-esophageal reflux disease without esophagitis amlodipine 10 mg PO DAILY 90 days 90 tabs 1RF I10 - Essential (primary) hypertension aspirin 81 mg PO DAILY 90 days 90 tabs 3RF Z86.73 - Personal history of transient ischemic attack (TIA), and cerebral infarction without residual deficits Coding Level of Care Code Est Pt Level 4 (06166) Diagnoses Essential hypertension I10 Hypertension type: essential hypertension Psoriasis L40.9 H/O: CVA (cerebrovascular accident) Z86.73 Additional Codes MARGARITA-7 Assessment Billing - MARGARITA-7 Assessment Tool: MARGARITA-7 Assessment 61593 ([id number])
[2023-06-19 15:08] VITALS: BP 152/90; PULSE 88; RESP 17; BMI 22.6
== END 2023-06-19 15:41 | disposition home or self-care (01) ==
PROVIDERS: PCP Physician Assistant; Visit Provider Physician Assistant
DX: I10 Essential (primary) hypertension (principal); L40.9 Psoriasis, unspecified; Z86.73 Personal history of transient ischemic attack (TIA), and cerebral infarction without residual deficits
CPT/HCPCS: 99214

== ENCOUNTER 2023-12-18 14:34 | Outpatient (AMB) | payer MEDICARE, MEDICAID, SELFPAY ==
--- NOTE | 2023-12-18 14:35 | A.OFFPC_ITS ---
Vital Signs 3 12/18/23 14:37 Height 5 ft 8 in Weight 141 lb 1.533 oz BMI 21.5 BP 144/88 H Blood Pressure Location Lt brachial Position Sitting Respiration 17 Pulse 60 Pulse Source Pulse Oximeter Pulse Oximetry (%) 97 Oxygen Delivery Method Room Air Intake Visit Reasons: f/u HTN/ CVA Teleprinter Installer Required: No Accompanied by: Self / Same As Patient Allergies No Known Allergies Allergy (Verified 12/18/23 14:53) Medication List - Last Reconciled 12/18/23 by Surya Izquierdo PA-C [adult diapers As directed] amlodipine 10 mg PO DAILY 90 days aspirin 81 mg PO DAILY 90 days docusate sodium (Colace) 100 mg PO DAILY PRN hydralazine 100 mg PO BID 90 days lisinopril 40 mg PO DAILY 90 days multivitamin (Daily Multi-Vitamin tablet) 1 tab PO DAILY omeprazole 20 mg PO DAILY 90 days Tobacco use date assessed: 06/19/23 Dental Screening Dental Screen Date: 06/19/23 HPI f/u HTN/ CVA 2 HPI0 Details Patient is a 68 year here today for a follow-up visit. Patient has a past medical history significant for CVA, hypertension, plaque psoriasis, GERD. VERY POOR HISTORIAN- SEEMS NOT INTERESTED IN TAKING CARE OF HIS HEALTH OR DISCUSSING HIS HEALTH AT ALL. . CHRONIC MEDICAL CONDITIONS-> History of CVA: Continues with blood pressure control on aspirin. He is unsure what year he had is CVA though is left with right-sided neural muscular weakness. Uses a walker for ambulation assistance. He is interested in referral to physiatry for a Botox injection to help him releases muscular tension is right upper extremity. .. Hypertension: Today's blood pressure slightly elevated in office. Continues on multiple medications to control his blood pressure. He does not monitor his blood pressure at home. Otherwise denies any recent headaches, chest discomfort, vision issues. .. Plaque psoriasis: Patient has extensive plaque psoriasis over extremities. Does use topical steroid [facility] Medical History Stroke Hypertension Psoriasis Surgical History History of inguinal hernia repair Family History Father Cancer Mother Lung cancer Social History Housing: Apartment Alcohol intake: current Alcohol intake frequency: a few times a week Alcohol type: hard liquor Patient Tobacco Use Status: Current someday Tobacco user Tobacco use type: Cigarette Cigarettes Per Day: 3 Advance Directives Date on File: 02/21/23 Cognitive needs: Yes Hearing needs: No Vision needs: Yes Questionnaire PHQ-9 Over the last 2 weeks, how often have you been bothered by any of the following problems? 1. Little interest or pleasure in doing things: not at all 2. Feeling down, depressed, or hopeless: not at all 3. Trouble falling or staying asleep, or sleeping too much: not at all 4. Feeling tired or having little energy: not at all 5. Poor appetite or overeating: not at all 6. Feeling bad about yourself - or that you are a failure or have let yourself or your family down: not at all 7. Trouble concentrating on things, such as reading the newspaper or watching television: not at all 8. Moving or speaking so slowly that other people could have noticed. Or the opposite - being so fidgety or restless that you have been moving around a lot more than usual: not at all 9. Thoughts that you would be better off or of hurting yourself in some way: not at all Total score: 0 Depression Screening Interpretation: Negative Depression Screening Done: Yes 86851 - PHQ-9 Billing: Yes Source: Developed by Drs. Edwin Nolasco, Nissa Gonzalez, Kirk Redd and colleagues, with an educational kimmie from [employer]. Thrive Questionnaire Date Thrive assessed: 12/18/23 I am a: Patient What is your living situation today?: I have a steady place to live Within the past 12 months, did the food you bought not last and you didn't have the money to get more?: Never true Within the past 12 months, did you worry whether your food would run out before you got money to buy more?: Never true Do you have trouble paying for medicines?: No Do you have trouble getting transportation to medical appointments?: No Do you have trouble paying your heating and electricity bill?: No Do you have trouble taking care of your child, family member or friend?: No Do you have trouble with day-to-day activities such as bathing, preparing meals, shopping, managing finances, etc.?: No Are you currently unemployed and looking for a job?: No Are you interested in more education?: No Please select the resources that you would like help with: None Currently or been in a relationship where the following occur: no concerns reported THRIVE Score: 0 AUDIT C Alcohol Use Questionnaire (AUDIT-C) 1. How often do you have a drink containing alcohol?: Monthly or less 2. How many drinks containing alcohol do you have on a typical day when you are drinking?: 1 or 2 3. How often do you have six or more drinks on one occasion?: Never Total Score: 1 MARGARITA-7 AMB Questionnaire MARGARITA-7 Date MARGARITA - 7 assessed: 12/18/23 Feeling nervous, anxious, or on edge: 0 = Not at all Not being able to stop or control worryin = Not at all Worrying too much about different things: 0 = Not at all Trouble relaxin = Not at all Being so restless that it is hard to sit still: 0 = Not at all Becoming easily annoyed or irritable: 0 = Not at all Feeling afraid as if something awful might happen: 0 = Not at all Total MARGARITA-7 score (0-4 normal; 5-9 mild; 10-14 moderate; 15-21 severe): 0 Source: Developed by Drs. Edwin Nolasco, Nissa Gonzalez, Kirk Redd and colleagues, with an educational kimmie from [employer]. MARGARITA-7 Assessment Billing MARGARITA-7 Assessment Tool: MARGARITA-7 Assessment 57644 Review of Systems Const Denies headache(s) Eyes Denies loss of vision ENT Denies vertigo, Denies dizziness, Denies headache(s) and Denies sore throat Card Denies chest pain, Denies leg edema and Denies lightheadedness Resp Denies cough, Denies hemoptysis and Denies wheezing GI Denies abdominal pain, Denies melena, Denies constipation, Denies diarrhea and Denies vomiting Denies dysuria, Denies urinary frequency and Denies urinary urgency Musc Denies arthralgias, Denies joint swelling, Denies numbness and Denies tingling Neuro Denies Abnormal speech present, Denies behavioral changes, Denies vertigo, Denies dizziness, Denies headache(s), Denies loss of vision, Denies memory loss, Denies numbness and Denies tingling Psych Denies anxiety, Denies behavioral changes, Denies depression, Denies memory loss and Denies panic attacks Tru/Lymph Denies easy bleeding and Denies easy bruising Aller/Immun Denies wheezing Physical exam (Primary Care) Vital Signs: Last Vital Signs Pulse 60 12/18/23 14:37 Resp 17 12/18/23 14:37 BP 144/88 H 12/18/23 14:37 Pulse Ox 97 12/18/23 14:37 Oxygen Delivery Method Room Air 12/18/23 14:37 BMI result Body Mass Index 21.5 Tobacco/Smoking Status: Tobacco use Status Tobacco use date assessed 06/19/23 12/18/23 14:36 Patient Tobacco Use Status Current someday Tobacco 12/18/23 14:36 Tobacco use type Cigarette 12/18/23 14:36 PHQ-9: PHQ-9 Score PHQ-9: Total score 0 12/18/23 14:57 Depression Screening Interpretation: Negative Thrive Assessment: Date of Thrive Assessment Date Thrive assessed 12/18/23 12/18/23 14:42 Currently or been in a relationship where the following occur: no concerns reported Const General: healthy appearing, no acute distress, alert and awake Nutritional Appearance: well nourished Orientation/consciousness: oriented to person, oriented to place and oriented to time HENMT Ears: TM's normal bilaterally General nose exam: Normal nasal mucous membranes and turbinates present Eyes Conjunctivae: conjunctivae normal Sclerae: sclerae normal Pupils: Equal, round and reactive pupils present Neck Neck: Yes no lymphadenopathy and Yes no JVD Thyroid: Thyroid normal Carotids: no bruits Resp Effort & Inspection: normal respiratory effort and not tachypneic Auscultation: no crackles, no rales, no rhonchi and no wheezes Cardio Rate: regular rate Rhythm: regular rhythm Heart sounds: no murmurs and normal S1 and S2 GI Palpation (GI): Soft to palpation, nontender, no hepatomegaly and no splenomegaly Auscultation: normal bowel sounds Back/Spine/Pelvis Back/spine/pelvis image: 2 1. LARGE SOFT SUBCUTANEOUS CYSTIC LIKE STRUCTURE OVER THE MID UPPER BACK. Skin General skin exam: no rashes or lesions noted and dry skin Neuro General: oriented to person, oriented to place and oriented to time Cranial nerves: Yes Equal, round and reactive pupils present Speech: No Abnormal speech present Gait exam (Neuro): Normal gait present Motor exam (neuro): no tremor noted Extrem Other: RIGHT UPPER EXTREMITY SEVERELY CONTRACTED Right upper extremity: ROM limited Left upper extremity: full ROM Right lower extremity: full ROM; no edema Left lower extremity: full ROM; no edema Psych Mental Status: mental status grossly normal Speech and movement: Normal speech and movement present Affect: normal affect Attitude: cooperative Thought process: Normal thought process present Assessment and Plan Assessment & Plan (1) Hypertension: Comment: Hx of stroke with right side weakness Code(s): I10 - Essential (primary) hypertension Qualifiers: Hypertension type: essential hypertension Qualified Code(s): I10 - Essential (primary) hypertension Plan: Blood pressure slightly elevated today in office. He does not monitor his blood pressure at home When asked he denies any chest pain, shortness of breath, vision issues or headaches. Will continue him on his current dose of amlodipine, lisinopril and hydralazine. Advised to monitor blood pressure at home (2) Psoriasis: Code(s): L40.9 - Psoriasis, unspecified Plan: Patient has pretty severe plaque psoriasis though has not interested in seeing dermatology for further advanced treatment. Will continue topical steroid treatment (3) H/O: CVA (cerebrovascular accident): Code(s): Z86.73 - Personal history of transient ischemic attack (TIA), and cerebral infarction without residual deficits Plan: Had a stroke many years ago and has been left with right sided muscular deficit. Continues to have a contracture of his right upper extremity. He would like to see physiatry for an injection to help release his muscular contracture. Continue to manage blood pressure and continue low-dose aspirin therapy. (4) Contracture of muscle, right forearm: Code(s): M62.431 - Contracture of muscle, right forearm Plan: As above (5) Epidermal cyst: Code(s): L72.0 - Epidermal cyst Plan: Patient does have a large cystic like structure over his mid upper back. He is interested in seeing general surgeon for evaluation and possible removal. Orders: Orders 2 Comprehensive [place]. Panel Fast 12/18/23 Z86.73 - Personal history of transient ischemic attack (TIA), and cerebral infarction without residual deficits Microalbumin, Random (w Creat) 12/18/23 I10 - Essential (primary) hypertension Complete Blood Count no Diff 12/18/23 Z86.73 - Personal history of transient ischemic attack (TIA), and cerebral infarction without residual deficits Lipid Panel 12/18/23 Z86.73 - Personal history of transient ischemic attack (TIA), and cerebral infarction without residual deficits Prostate Specific Antigen Scr 12/18/23 I10 - Essential (primary) hypertension, Z12.5 - Encounter for screening for malignant neoplasm of prostate Referrals 2 Physiatry Referral M62.431 - Contracture of muscle, right forearm General Surgery Referral L72.0 - Epidermal cyst Medications: New 2 triamcinolone acetonide 0.1% 1 appl topical DAILY 80 grams 3RF 15 days L40.9 - Psoriasis, unspecified Patient Instructions: Goal: Blood pressure to remain below 140/90, start to monitor blood pressure at home. Barriers: Right-sided hemiplegia and muscle contracture, adherence to medication, physical activity and healthy eating habits. Coding Level of Care Code Est Pt Level 4 (83514) Complex EM visit Add On G2211 Diagnoses Essential hypertension I10 Hypertension type: essential hypertension Psoriasis L40.9 H/O: CVA (cerebrovascular accident) Z86.73 Contracture of muscle, right forearm M62.431 Epidermal cyst L72.0 Additional Codes MARGARITA-7 Assessment Billing - MARGARITA-7 Assessment Tool: MARGARITA-7 Assessment 87166 ([id number])
[2023-12-18 14:37] VITALS: BP 144/88; PULSE 60; RESP 17; O2SAT 97; BMI 21.5
== END 2023-12-18 15:20 | disposition home or self-care (01) ==
LOC: HO.HMGH 14:34
PROVIDERS: PCP Physician Assistant; Visit Provider Physician Assistant
DX: I10 Essential (primary) hypertension (principal); L40.9 Psoriasis, unspecified; Z86.73 Personal history of transient ischemic attack (TIA), and cerebral infarction without residual deficits; M62.431 Contracture of muscle, right forearm; L72.0 Epidermal cyst
CPT/HCPCS: 99214; G2211

== ENCOUNTER 2024-12-02 17:17 | Inpatient (IN) | payer MEDICARE, MEDICAID, SELFPAY ==
[2024-12-02] VITALS (13 sets, daily range): BP systolic 106–178; BP diastolic 48–90; PULSE 58–126; RESP 12–24; TEMP 37.1–39.9; O2SAT 92–100; BMI 21.5
--- NOTE | ~2024-12-02 | CT_ITS ---
CLINICAL HISTORY: recurrent falls on blood thinners CT head without contrast Comparison: None Findings: No intracranial mass, midline shift, hydrocephalus, or acute hemorrhage. Moderate chronic ischemic white matter disease with volume loss. Old left parieto-occipital infarct with large area of encephalomalacia No acute process in sinuses or mastoids. No acute bony abnormality. Impression: No acute intracranial process This document has been electronically signed by: Gabriel Gilmore MD on 12/02/2024 20:04:55
--- NOTE | ~2024-12-02 | CT_ITS ---
CLINICAL HISTORY: more rib fxs, one npoted on CT C spine CT chest without contrast Comparison: CT/SR - CT ABDOMEN PELVIS WO IV CON - 12/02/24 23:05 EDT Findings: The heart size is normal. The visualized thyroid and mediastinum are unremarkable. Mild scattered atelectasis both lower lungs. No consolidation, effusion, or pneumothorax. Abdominal findings are discussed on the comparison exam. Osteopenia. Acute comminuted right 1st posteromedial fracture. Subacute healing right anterior 5th through 7th rib fractures. Old left anterior 5th and 6th rib fractures. There is significant subcutaneous swelling in the right anterior chest. IMPRESSION: 1. Acute right posteromedial comminuted 1st rib fracture. This can be associated with a high velocity injury or direct blow. 2. Subacute healing right anterior 5th through 7th rib fractures. Probable chest wall hematoma involving the pectoralis major muscle and subcutaneous tissues associated with this. This document has been electronically signed by: Jose Longoria MD on 12/03/2024 02:11:00
--- NOTE | ~2024-12-02 | XR_ITS ---
CLINICAL HISTORY: fever 1 view chest x-ray Comparison: None Findings: Lungs are clear without acute infiltrates. No pneumothorax. Heart size normal. No acute bony abnormalities. Impression: No acute processes This document has been electronically signed by: Gabriel Gilmore MD on 12/02/2024 19:02:38
--- NOTE | ~2024-12-02 | CT_ITS ---
CLINICAL HISTORY: recurrent falls on blood thinners CT cervical spine without contrast Comparison: None Findings: No acute fracture or dislocation. Severe degenerative change. C7-T1 anterolisthesis, likely chronic. Posterior alignment otherwise unremarkable. No radiopaque foreign bodies. Nondisplaced right 1st rib fracture. Impression: No acute cervical fracture Nondisplaced right 1st rib fracture This document has been electronically signed by: Gabriel Gilmore MD on 12/02/2024 20:09:04
--- NOTE | ~2024-12-02 | CT_ITS ---
CLINICAL HISTORY: trauma CT abdomen and pelvis without contrast Comparison: CT/SR - CT CHEST WO IV CON - 12/02/24 23:05 EDT Findings: Chest findings are discussed on the comparison. The gallbladder and solid organs are within normal limits. No renal stones. Small right inguinal hernia contains a short segment of ileum. Mild small-bowel distention in the left upper quadrant and lower pelvis. No abnormal bowel wall thickening or abrupt transition points are seen. Large amount of stool. The appendix is not definitely identified. Soft tissue induration and calcification at the left inguinal canal. Correlate with prior surgery such as radical orchiectomy. No ascites. Osteopenia. No acute fracture. IMPRESSION: 1. Large amount of stool without bowel obstruction. 2. Small right inguinal hernia contains a loop of small bowel. No evidence of obstruction. 3. A few scattered areas of small bowel are mildly distended. Ileus favored. This document has been electronically signed by: Jose Longoria MD on 12/03/2024 02:09:10
[2024-12-02 18:03] LABS: MANUAL DIFF FLAG NO
[2024-12-02 18:05] LABS: Basophils Absolute Auto 0.1 X10*3/uL (0.0-0.2); Basophils Percent Auto 0.9 % (0-2); Eosinophils Percent Auto 0.1 % (0-4); Hematocrit 31.9 % (42.0-52.0); Hemoglobin 11.1 g/dl (14.0-18.0); Imm Gran Abs Auto 0.03 X10*3/uL (0.00-0.03); Imm Gran Pct Auto 0.4 % (0.0-0.4); Lymphocytes Absolute Auto 0.5 X10*3/uL (1.2-4.9); Lymphocytes Percent Auto 6.1 % (20-40); Mean Corpuscular HGB Conc 34.8 g/dl (31.0-36.0); Mean Corpuscular Hemoglobin 31.8 pg (27.0-33.0); Mean Corpuscular Volume 91.4 fL (80.0-98.0); Mean Platelet Volume 10.1 fL (9.4-12.4); Monocytes Absolute Auto 0.4 X10*3/uL (0.1-1.2); Monocytes Percent Auto 5.7 % (2-11); Neutrophils Absolute Auto 6.7 x10*3/uL (2.0-8.3); Neutrophils Percent Auto 86.8 % (45-73); Platelet Count 257 X10*3/uL (160-400); Red Blood Count 3.49 X10*6/uL (4.60-5.80); Red Cell Distribution Width 13.2 % (11.0-16.0); White Blood Count 7.7 X10*3/uL (4.8-10.8)
[2024-12-02 18:11] LABS: INTERNATIONAL NORM RATIO 1.1 (0.9-1.1); Prothrombin Time 12.6 SEC (10.9-12.4)
[2024-12-02 18:13] LABS: Ammonia 36 umol/L (13-55)
[2024-12-02 18:27] LABS: Troponin-I High Sensitivity 35.8 ng/L (<3.5-35.0)
[2024-12-02 18:31] LABS: Alanine Aminotransferase 32 U/L (0-40); Alkaline Phosphatase 86 U/L (39-117); Anion Gap 14 (12-20); Aspartate Amino Transferase 46 U/L (5-37); Bilirubin Total 0.6 mg/dL (0.0-1.0); Blood Urea Nitrogen 34 mg/dL (9-16); Calcium 9.1 mg/dL (8.4-10.2); Carbon Dioxide 26 mmol/L (22-29); Chloride 105 mmol/L (96-108); Creatinine Clr Calc Pharmacy 32.3; Estimated Glomerular Filt Rate 34; Ethanol < 10 mg/dL; Glucose Random 139 mg/dL (60-115); Magnesium 2.1 mg/dL (1.6-2.6); Potassium 3.9 mmol/L (3.3-5.1); Sodium 141 mmol/L (135-145); Total Protein 6.4 g/dL (6.5-8.0)
[2024-12-02 18:35] LABS: Lactic Acid 2.9 mmol/L (0.5-2.0)
[2024-12-02] MEDS: Acetaminophen 325 MG TABLET 975 MG PO (18:36)
[2024-12-02] MEDS: cefTRIAXone sodium 2 GM VIAL IVPUSH (18:36)
[2024-12-02] MEDS: 0.9 % Sodium Chloride 1,920 ML 1920 ML IV (18:37)
[2024-12-02 19:14] LABS: Influenza A PCR NEGATIVE (Negative); Influenza B PCR NEGATIVE (Negative); Resp Syncy Virus RNA Qual PCR NEGATIVE (Negative); SARS COV2 PCR INHOUSE NEGATIVE (Negative)
[2024-12-02 20:02] LABS: Reflex Lactate? Lactic Acid Added
--- NOTE | 2024-12-02 20:31 | MHC.EDTECH ---
Patient incontinent of urine. Bed change completed and repositioned. RN aware
[2024-12-02 20:44] LABS: ~Lactic Acid-LAB USE ONLY 2.6 mmol/L (0.5-2.0)
[2024-12-02 20:48] LABS: Troponin-I High Sensitivity 40.6 ng/L (<3.5-35.0)
[2024-12-02 20:51] LABS: Appearance Urine Clear; Color Urine Dark Yellow; Glucose Urine UA 250 mg/dL (Negative); Leukocyte Esterase Urine Negative (Negative); Nitrite Urine Negative (Negative); PH 6.5 (5.0-9.0); Specific Gravity - Urine 1.025 (1.005-1.025); UMIC TRIGGER UACC YES; Urine Blood Small (1+) (Negative); Urine Ketones Negative (Negative); Urine Protein 100 (2+) mg/dL (Neg-Trace)
[2024-12-02 21:00] LABS: Amphetamine Screen Urine Not Detected (Not Detect); Barbiturates, Urine Not Detected (Not Detect); Benzodiazepines Screen Urine Not Detected (Not Detect); Buprenorphine Scr Not Detected (Not Detect); Cannabinoid Screen Urine Not Detected (Not Detect); Cocaine Screen Urine Not Detected (Not Detect); Fentanyl, urine Not Detected (Not Detect); Methadone Screen, Urine Not Detected (Not Detect); Opiate Screen Urine Not Detected (Not Detect); Oxycodone Screen Urine Not Detected (Not Detect); Phencyclidine Screen Urine Not Detected (Not Detect)
[2024-12-02 21:01] LABS: Bacteria Urine None Seen (None Seen); Hyaline Casts Urine 0-2 /LPF (0-2); Squamous Epithelial Cell Urine 0-2 /HPF (0-2); UACC Culture Trigger YES
[2024-12-02 22:25] LABS: Reflex Lactate? 2 Y
--- NOTE | 2024-12-02 23:03 | ED_ITS ---
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 History limited as the patient is currently altered, only alert to self. Patient was found down on the ground of unclear duration of time. He is covered in urine and dirt. Related Data Previous Rx's ?Medication ?Instructions ?Recorded multivitamin (Daily Multi-Vitamin 1 tab PO DAILY #30 tabs 03/14/23 tablet) adult diapers #180 ea 03/24/23 aspirin 81 mg tablet,delayed 81 mg PO DAILY 90 days #90 tabs 06/19/23 release hydralazine 100 mg tablet 100 mg PO BID 90 days #180 tabs 06/19/23 lisinopril 40 mg tablet 40 mg PO DAILY 90 days #90 tabs 06/19/23 omeprazole 20 mg capsule,delayed 20 mg PO DAILY 90 days #90 caps 06/19/23 release docusate sodium 100 mg capsule 100 mg PO DAILY PRN constipation 11/27/23 (Colace) #30 caps triamcinolone acetonide 0.1 % 1 appl topical DAILY 15 days #80 12/18/23 topical cream grams amlodipine 10 mg tablet 10 mg PO DAILY 90 days #90 tabs 11/17/24 Allergies Allergy/AdvReac Type Severity Reaction Status Date / Time No Known Allergies Allergy Verified 12/02/24 17:40 Review of Systems 2 Review of Systems: Yes all other systems are reviewed and are negative and Unobtainable due to mental status PMFSH Past Medical History Attestation statement: The following information was validated with the patient. Medical History Stroke Hypertension Psoriasis Surgical History History of inguinal hernia repair Family History Family History Father Cancer Mother Lung cancer Social History Social History Housing: Apartment Unable to assess alcohol history related to: Unknown Alcohol intake: current Alcohol intake frequency: 0-2 drinks per day Alcohol type: beer Patient Tobacco Use Status: Current someday Tobacco user Tobacco use type: Cigarette Cigarettes Per Day: 3 Smoked in Last 30 Days: No Use of substances other than those prescribed or required for medical reasons: Unknown Advance Directives: Yes Advance Directives on File: Yes Advance Directives Date on File: 02/21/23 Cognitive needs: Yes Hearing needs: No Vision needs: Yes Physical Exam ED Vital Signs: Vital Signs - 24 hr 12/02/24 17:35 12/02/24 17:59 12/02/24 18:29 Temperature 103.8 F H Pulse Rate 106 H 97 97 Respiratory Rate 22 H 15 24 H Blood Pressure 137/65 128/66 129/79 Pulse Oximetry 94 92 97 Oxygen Delivery Method Room Air Room Air Room Air 12/02/24 18:46 12/02/24 19:14 12/02/24 19:43 Temperature Pulse Rate 93 88 78 Respiratory Rate 12 20 17 Blood Pressure 111/48 L 119/66 106/63 Pulse Oximetry 92 98 94 Oxygen Delivery Method Room Air Room Air Room Air 12/02/24 19:58 12/02/24 20:18 12/02/24 21:35 Temperature 98.7 F Pulse Rate 72 65 61 Respiratory Rate 16 20 14 Blood Pressure 113/63 114/56 L 122/68 Pulse Oximetry 95 100 97 Oxygen Delivery Method Room Air Room Air Room Air 12/02/24 21:56 12/02/24 22:13 12/02/24 22:28 Temperature Pulse Rate 59 58 58 Respiratory Rate 14 Blood Pressure 110/66 111/66 112/66 Pulse Oximetry 96 Oxygen Delivery Method Room Air 12/03/24 00:14 12/03/24 01:14 Temperature 97.5 F Pulse Rate 60 54 Respiratory Rate 16 13 Blood Pressure 125/71 131/74 Pulse Oximetry 95 99 Oxygen Delivery Method Room Air Room Air BMI result Body Mass Index 21.5 Const Other: Awake, disheveled, filthy, smells of urine, cachectic Orientation/consciousness: oriented to person Resp Other: not tachypneic, lungs clear to auscultation no wheezing Cardio Other: normal peripheral perfusion Skin Other: raised, erythematous, dry scaly plaques noted over extensor surfaces, and torso, of varying sizes, consistent with his psoriasis. Some of the lesions over the back are erythematous, potentially cellulitic versus chafed skin Neuro Other: known underlying right-sided weakness with contracture of rig General: oriented to person and CN's II-XI intact bilaterally Psych Other: upset at times, confused, yet cooperative Course Reevaluation(s) Reevaluation #1: at 6:23 p.m. on November 02, a sepsis focused exam was performed, in addition to screening labs, we will be obtaining blood cultures, lactic, starting weight based IV fluid, and empiric antibiotic Time: Reevaluation #2: the patient was found to have an isolated rib fracture on the chest x-ray, he could have more, obtaining a CT scan of the chest, we will also scan his abdomen, there could have been other trauma involved. Medications Administered Discontinued Medications Generic Name Dose Route Start Last Admin Trade Name Freq PRN Reason Stop Dose Admin Acetaminophen 975 mg 12/02/24 18:23 12/02/24 18:36 Acetaminophen 325 Mg Tablet PO 12/02/24 18:24 975 mg ONCE ONE Administration Ceftriaxone Sodium 2 gm 12/02/24 18:23 12/02/24 18:36 Ceftriaxone Sodium 2 Gm Vial IVPUSH 12/02/24 18:24 2 gm ONCE ONE Administration Sodium Chloride 1,920 mls @ 1,920 mls/hr 12/02/24 18:23 12/02/24 21:36 Ns 30 ml/kg infuse over 1 hr (1920 ml) 12/02/24 19:22 Infused IV Infusion .Q1H STA Medical Decision Making Medical Decision Making MDM Narrative: 69-year-old male with a history of hypertension, 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 History limited as the patient is currently altered, only alert to self. Patient was found down on the ground of unclear duration of time. He is covered in urine and dirt. problem: Age, prior stroke, alcohol abuse History: Per EMS I have considered the following differential diagnoses: Sepsis, UTI, intracranial hemorrhage, cervical spine injury, pneumonia, acute intra-abdominal pathology, rhabdomyolysis, alcohol/ drug intoxication, hepatic encephalopathy , Syncope Plan: My 1st concern is for sepsis, the patient is febrile. We will be screening broad labs, obtain blood cultures, lactic acid, assessing for additional sources including viral panel, chest x-ray, urinalysis. Starting weight based IV fluid therapy, ceftriaxone, giving rectal Tylenol. In regard to his skin issues on exam, I feel that the skin is chafed from contact with the urine, I do not think that this is cellulitis over his psoriasis plaques. The patient is altered, it is presumed that he is likely intoxicated with alcohol, adding on serum ethanol and drug screen. He could also have encephalopathy from his alcohol abuse. Unclear what the down time was for him on the ground, he could have rhabdomyolysis, adding on a CPK. Unclear if the patient has sustained a trauma, scanning his head and neck. Unclear if the patient had a syncopal episode, adding EKG and troponin. I have independently reviewed the following tests: Labs: No overall leukocytosis, left shift noted, not anemic, no electrolyte abnormality, elevation and kidney function at 1.95, lactic acid 2.9, repeat lactic acid 2.6, 3rd lactic acid 0.9, CPK 939, 1st troponin 35.8, delta troponin 40.6, viral panel neg, urine infected, ethanol negative, drug screen negative Chest x-ray:Lungs are clear without acute infiltrates. No pneumothorax. Heart size normal. No acute bony abnormalities. Impression: No acute processes CT brain: Findings: No intracranial mass, midline shift, hydrocephalus, or acute hemorrhage. Moderate chronic ischemic white matter disease with volume loss. Old left parieto-occipital infarct with large area of encephalomalacia No acute process in sinuses or mastoids. No acute bony abnormality. Impression: No acute intracranial process CT cervical spine:Findings: No acute fracture or dislocation. Severe degenerative change. C7-T1 anterolisthesis, likely chronic. Posterior alignment otherwise unremarkable. No radiopaque foreign bodies. Nondisplaced right 1st rib fracture. Impression: No acute cervical fracture Nondisplaced right 1st rib fracture CT chest: Findings: The heart size is normal. The visualized thyroid and mediastinum are unremarkable. Mild scattered atelectasis both lower lungs. No consolidation, effusion, or pneumothorax. Abdominal findings are discussed on the comparison exam. Osteopenia. Acute comminuted right 1st posteromedial fracture. Subacute healing right anterior 5th through 7th rib fractures. Old left anterior 5th and 6th rib fractures. There is significant subcutaneous swelling in the right anterior chest. IMPRESSION: 1. Acute right posteromedial comminuted 1st rib fracture. This can be associated with a high velocity injury or direct blow. 2. Subacute healing right anterior 5th through 7th rib fractures. Probable chest wall hematoma involving the pectoralis major muscle and subcutaneous tissues associated with this. CT abdomen and pelvis:IMPRESSION: 1. Large amount of stool without bowel obstruction. 2. Small right inguinal hernia contains a loop of small bowel. No evidence of obstruction. 3. A few scattered areas of small bowel are mildly distended. Ileus favored. Lab Data 12/02/24 17:58 12/02/24 17:58 Labs: Lab Results 12/02/24 12/02/24 12/02/24 Range/Units 17:58 18:33 20:16 WBC 7.7 (4.8-10.8) X10*3/uL RBC 3.49 L (4.60-5.80) X10*6/uL Hgb 11.1 L (14.0-18.0) g/dl Hct 31.9 L (42.0-52.0) % MCV 91.4 (80.0-98.0) fL MCH 31.8 (27.0-33.0) pg MCHC 34.8 (31.0-36.0) g/dl RDW 13.2 (11.0-16.0) % Plt Count 257 (160-400) X10*3/uL MPV 10.1 (9.4-12.4) fL Immature Gran % (Auto) 0.4 (0.0-0.4) % Neut % (Auto) 86.8 H (45-73) % Lymph % (Auto) 6.1 L (20-40) % [place] % (Auto) 5.7 (2-11) % Eos % (Auto) 0.1 (0-4) % Baso % (Auto) 0.9 (0-2) % Lymph # (Auto) 0.5 L (1.2-4.9) X10*3/uL [place] # (Auto) 0.4 (0.1-1.2) X10*3/uL Eos # (Auto) 0.0 (0.0-0.4) X10*3/uL Baso # (Auto) 0.1 (0.0-0.2) X10*3/uL Abs Immat Gran (auto) 0.03 (0.00-0.03) X10*3/uL Absolute Neuts (auto) 6.7 (2.0-8.3) x10*3/uL Absolute Nucleated RBC 0.000 (0.0-0.012) X10*3/uL Nucleated RBC % (auto) 0.0 (0.0-0.2) /100WBC PT 12.6 H (10.9-12.4) SEC INR 1.1 (0.9-1.1) Sodium 141 (135-145) mmol/L Potassium 3.9 (3.3-5.1) mmol/L Chloride 105 (96-108) mmol/L Carbon Dioxide 26 (22-29) mmol/L Anion Gap 14 (12-20) BUN 34 H (9-16) mg/dL Creatinine 1.95 H (0.5-1.4) mg/dL Estim Creat Clear Calc 32.3 Estimated GFR 34 Random Glucose 139 H (60-115) mg/dL Lactic Acid 2.9 H* (0.5-2.0) mmol/L Lactic Acid F/U @ 2Hr 2.6 H* (0.5-2.0) mmol/L Lactic Acid F/U @ 4Hr (0.5-2.0) mmol/L Calcium 9.1 (8.4-10.2) mg/dL Magnesium 2.1 (1.6-2.6) mg/dL Total Bilirubin 0.6 (0.0-1.0) mg/dL AST 46 H (5-37) U/L ALT 32 (0-40) U/L Alkaline Phosphatase 86 (39-117) U/L Ammonia 36 (13-55) umol/L Total Creatine Kinase 939 H (38-174) U/L Troponin I High Sens 35.8 H D 40.6 H (<3.5-35.0) ng/L Total Protein 6.4 L (6.5-8.0) g/dL Albumin 4.0 (3.5-5.0) g/dL Urine Color Urine Appearance Urine pH (5.0-9.0) Ur Specific [place] (1.005-1.025) Urine Protein (Neg-Trace) mg/dL Urine Glucose (UA) (Negative) mg/dL Urine Ketones (Negative) mg/dL Urine Blood (Negative) Urine Nitrite (Negative) Ur Leukocyte Esterase (Negative) Urine RBC (0-2) /HPF Urine WBC (0-5) /HPF Ur Squamous Epith Cells (0-2) /HPF Urine Bacteria (None Seen) Hyaline Casts (0-2) /LPF Urine Opiates Screen (Not Detect) Ur Buprenorphine Scrn (Not Detect) ng/mL Ur Oxycodone Screen (Not Detect) ng/mL Urine Methadone Screen (Not Detect) ng/mL Urine Fentanyl Screen (Not Detect) Ur Barbiturates Screen (Not Detect) Ur Phencyclidine Scrn (Not Detect) Ur Amphetamines Screen (Not Detect) U Benzodiazepines Scrn (Not Detect) Urine Cocaine Screen (Not Detect) U Marijuana (THC) Screen (Not Detect) Ethyl Alcohol < 10 mg/dL Influenza Type A (PCR) NEGATIVE (Negative) Influenza Type B (PCR) NEGATIVE (Negative) RSV RNA Qual (PCR) NEGATIVE (Negative) SARS-CoV-2 RNA (RT-PCR) NEGATIVE (Negative) 12/02/24 12/02/24 Range/Units 20:43 22:53 WBC (4.8-10.8) X10*3/uL RBC (4.60-5.80) X10*6/uL Hgb (14.0-18.0) g/dl Hct (42.0-52.0) % MCV (80.0-98.0) fL MCH (27.0-33.0) pg MCHC (31.0-36.0) g/dl RDW (11.0-16.0) % Plt Count (160-400) X10*3/uL MPV (9.4-12.4) fL Immature Gran % (Auto) (0.0-0.4) % Neut % (Auto) (45-73) % Lymph % (Auto) (20-40) % [place] % (Auto) (2-11) % Eos % (Auto) (0-4) % Baso % (Auto) (0-2) % Lymph # (Auto) (1.2-4.9) X10*3/uL [place] # (Auto) (0.1-1.2) X10*3/uL Eos # (Auto) (0.0-0.4) X10*3/uL Baso # (Auto) (0.0-0.2) X10*3/uL Abs Immat Gran (auto) (0.00-0.03) X10*3/uL Absolute Neuts (auto) (2.0-8.3) x10*3/uL Absolute Nucleated RBC (0.0-0.012) X10*3/uL Nucleated RBC % (auto) (0.0-0.2) /100WBC PT (10.9-12.4) SEC INR (0.9-1.1) Sodium (135-145) mmol/L Potassium (3.3-5.1) mmol/L Chloride (96-108) mmol/L Carbon Dioxide (22-29) mmol/L Anion Gap (12-20) BUN (9-16) mg/dL Creatinine (0.5-1.4) mg/dL Estim Creat Clear Calc Estimated GFR Random Glucose (60-115) mg/dL Lactic Acid (0.5-2.0) mmol/L Lactic Acid F/U @ 2Hr (0.5-2.0) mmol/L Lactic Acid F/U @ 4Hr 0.9 (0.5-2.0) mmol/L Calcium (8.4-10.2) mg/dL Magnesium (1.6-2.6) mg/dL Total Bilirubin (0.0-1.0) mg/dL AST (5-37) U/L ALT (0-40) U/L Alkaline Phosphatase (39-117) U/L Ammonia (13-55) umol/L Total Creatine Kinase (38-174) U/L Troponin I High Sens (<3.5-35.0) ng/L Total Protein (6.5-8.0) g/dL Albumin (3.5-5.0) g/dL Urine Color Dark Yellow Urine Appearance Clear Urine pH 6.5 (5.0-9.0) Ur Specific [place] 1.025 (1.005-1.025) Urine Protein 100 (2+) H (Neg-Trace) mg/dL Urine Glucose (UA) 250 H (Negative) mg/dL Urine Ketones Negative (Negative) mg/dL Urine Blood Small (1+) H (Negative) Urine Nitrite Negative (Negative) Ur Leukocyte Esterase Negative (Negative) Urine RBC 3-5 H (0-2) /HPF Urine WBC 6-10 H (0-5) /HPF Ur Squamous Epith Cells 0-2 (0-2) /HPF Urine Bacteria None Seen (None Seen) Hyaline Casts 0-2 (0-2) /LPF Urine Opiates Screen Not Detected (Not Detect) Ur Buprenorphine Scrn Not Detected (Not Detect) ng/mL Ur Oxycodone Screen Not Detected (Not Detect) ng/mL Urine Methadone Screen Not Detected (Not Detect) ng/mL Urine Fentanyl Screen Not Detected (Not Detect) Ur Barbiturates Screen Not Detected (Not Detect) Ur Phencyclidine Scrn Not Detected (Not Detect) Ur Amphetamines Screen Not Detected (Not Detect) U Benzodiazepines Scrn Not Detected (Not Detect) Urine Cocaine Screen Not Detected (Not Detect) U Marijuana (THC) Screen Not Detected (Not Detect) Ethyl Alcohol mg/dL Influenza Type A (PCR) (Negative) Influenza Type B (PCR) (Negative) RSV RNA Qual (PCR) (Negative) SARS-CoV-2 RNA (RT-PCR) (Negative) Discharge Plan Discharge Clinical Impression: Fever, Acute UTI, Rhabdomyolysis, JEROME (acute kidney injury), Fracture of right first rib Patient Disposition: Admitted As Inpatient Print Language: Syrian
[2024-12-02 23:11] LABS: ~Lactic Acid-LAB USE ONLY 0.9 mmol/L (0.5-2.0)
[2024-12-03] VITALS (10 sets, daily range): BP systolic 123–173; BP diastolic 70–96; PULSE 51–82; RESP 12–18; TEMP 36.4–36.8; O2SAT 95–99; BMI 24.3; BMI 22.3
--- NOTE | 2024-12-03 02:48 | ECG_ITS ---
Test Reason : ELEVATED TROPONIN Blood Pressure : */* mmHG Vent. Rate : 50 BPM Atrial Rate : 50 BPM P-R Int : 172 ms QRS Dur : 100 ms QT Int : 466 ms P-R-T Axes : 82 -2 18 degrees QTcB Int : 424 ms Sinus bradycardia T wave abnormality, consider lateral ischemia Abnormal ECG When compared with ECG of 19-Feb-2023 19:04, Premature ventricular complexes are no longer Present Vent. rate has decreased by 41 bpm T wave inversion more evident in Lateral leads Referred By: Fabi Mijares Electronically Signed By: LIANNE RECINOS
--- NOTE | 2024-12-03 02:50 | P.HPHOSP_ITS ---
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 History limited as the patient is currently altered, only alert to self. Per ED note, Patient was found down on the ground of unclear duration of time. He is covered in urine and dirt. Workup in the ED included muniz scan with negative head CT, negative C-spine CT. Chest CT with 1st right rib nondisplaced fracture. Abdominopelvic CT without any acute findings. Patient was febrile when he arrived with JEROME and elevated CPK of 939. He was given fluid bolus and ceftriaxone. UA is positive for urinary tract infection. Troponin elevated at 35.8, 40.6 on repeat, EKG with abnormal T-waves in lateral leads. Patient is unable to provide any history at this time. Review of Systems 2 Review of Systems: Yes Unobtainable due to mental status [facility] Medical History Stroke Hypertension Psoriasis Family History Father Cancer Mother Lung cancer Surgical History History of inguinal hernia repair Social History Housing: Apartment Unable to assess alcohol history related to: Unknown Alcohol intake: current Alcohol intake frequency: 0-2 drinks per day Alcohol type: beer Patient Tobacco Use Status: Current someday Tobacco user Tobacco use type: Cigarette Cigarettes Per Day: 3 Smoked in Last 30 Days: No Use of substances other than those prescribed or required for medical reasons: Unknown Advance Directives: Yes Advance Directives on File: Yes Advance Directives Date on File: 02/21/23 Cognitive needs: Yes Hearing needs: No Vision needs: Yes Meds Allergies Allergy/AdvReac Type Severity Reaction Status Date / Time No Known Allergies Allergy Verified 12/02/24 17:40 Active Medications: Current Medications Acetaminophen (Acetaminophen 325 Mg Tablet) 975 mg PO Q6H PRN PRN Reason: Pain, Mild 1-3,fever,headache Calcium Carbonate (Calcium Carbonate 750 Mg Tab.Chew) 750 mg PO Q4H PRN PRN Reason: Heartburn Enoxaparin Sodium (Enoxaparin Sodium 40 Mg/0.4 Ml Syringe) 40 mg SUBCUT Q24H [facility] Thiamine HCl 100 mg/ Sodium (Chloride) 101 mls @ 202 mls/hr IV ONCE ONE Stop: 12/03/24 03:08 Lactated Ringer's (Lr) 1,000 mls @ 100 mls/hr IVCONT .Q10H [facility] Magnesium Hydroxide (Milk Of Magnesia 30 Ml Oral.Susp) 30 ml PO DAILY PRN PRN Reason: Constipation Melatonin (Melatonin 3 Mg Tablet) 6 mg PO BEDTIME PRN PRN Reason: Insomnia Ondansetron HCl (Ondansetron Hcl 4 Mg/2 Ml Vial) 4 mg IVPUSH Q8H PRN PRN Reason: Nausea and Vomiting Sodium Chloride (0.9 % Sodium Chloride Flush 3 Ml Syringe) 3 ml IVFLUSH QSHIFT [facility] Physical Exam 2 Vital Signs and Narrative: Vital Signs: Last Vital Signs Temp 97.5 F 12/03/24 00:14 Pulse 54 12/03/24 01:14 Resp 13 12/03/24 01:14 BP 131/74 12/03/24 01:14 Pulse Ox 99 12/03/24 01:14 O2 Del Method Room Air 12/03/24 01:14 BMI result Body Mass Index 21.5 General: Alert to person, not place or time, no acute distress Resp: CTA bilaterally CVS: S1, S2, RRR GI: +BS, NT, no distention Skin: Warm, dry. smells of urine. covered in dirt. Neuro: Cranial nerves II-XII grossly intact bilaterally. Motor grossly intact bilaterally Extremities: No LE edema Psych: Appropriate affect Results Labs 12/02/24 17:58 12/02/24 17:58 Labs: Laboratory Results - last 24 hr 12/02/24 12/02/24 12/02/24 17:58 18:33 20:16 MCV 91.4 MCH 31.8 MCHC 34.8 RDW 13.2 Plt Count 257 MPV 10.1 Immature Gran % (Auto) 0.4 Neut % (Auto) 86.8 H Lymph % (Auto) 6.1 L [place] % (Auto) 5.7 Eos % (Auto) 0.1 Baso % (Auto) 0.9 Lymph # (Auto) 0.5 L [place] # (Auto) 0.4 Eos # (Auto) 0.0 Baso # (Auto) 0.1 Abs Immat Gran (auto) 0.03 Absolute Neuts (auto) 6.7 Absolute Nucleated RBC 0.000 Nucleated RBC % (auto) 0.0 PT 12.6 H INR 1.1 Anion Gap 14 Estim Creat Clear Calc 32.3 Estimated GFR 34 Random Glucose 139 H Lactic Acid 2.9 H* Lactic Acid F/U @ 2Hr 2.6 H* Lactic Acid F/U @ 4Hr Calcium 9.1 Magnesium 2.1 Total Bilirubin 0.6 AST 46 H ALT 32 Alkaline Phosphatase 86 Ammonia 36 Total Creatine Kinase 939 H Troponin I High Sens 35.8 H D 40.6 H Total Protein 6.4 L Albumin 4.0 Urine Color Urine Appearance Urine pH Ur Specific [place] Urine Protein Urine Glucose (UA) Urine Ketones Urine Blood Urine Nitrite Ur Leukocyte Esterase Urine RBC Urine WBC Ur Squamous Epith Cells Urine Bacteria Hyaline Casts Urine Opiates Screen Ur Buprenorphine Scrn Ur Oxycodone Screen Urine Methadone Screen Urine Fentanyl Screen Ur Barbiturates Screen Ur Phencyclidine Scrn Ur Amphetamines Screen U Benzodiazepines Scrn Urine Cocaine Screen U Marijuana (THC) Screen Ethyl Alcohol < 10 Influenza Type A (PCR) NEGATIVE Influenza Type B (PCR) NEGATIVE RSV RNA Qual (PCR) NEGATIVE SARS-CoV-2 RNA (RT-PCR) NEGATIVE 12/02/24 12/02/24 20:43 22:53 MCV MCH MCHC RDW Plt Count MPV Immature Gran % (Auto) Neut % (Auto) Lymph % (Auto) [place] % (Auto) Eos % (Auto) Baso % (Auto) Lymph # (Auto) [place] # (Auto) Eos # (Auto) Baso # (Auto) Abs Immat Gran (auto) Absolute Neuts (auto) Absolute Nucleated RBC Nucleated RBC % (auto) PT INR Anion Gap Estim Creat Clear Calc Estimated GFR Random Glucose Lactic Acid Lactic Acid F/U @ 2Hr Lactic Acid F/U @ 4Hr 0.9 Calcium Magnesium Total Bilirubin AST ALT Alkaline Phosphatase Ammonia Total Creatine Kinase Troponin I High Sens Total Protein Albumin Urine Color Dark Yellow Urine Appearance Clear Urine pH 6.5 Ur Specific [place] 1.025 Urine Protein 100 (2+) H Urine Glucose (UA) 250 H Urine Ketones Negative Urine Blood Small (1+) H Urine Nitrite Negative Ur Leukocyte Esterase Negative Urine RBC 3-5 H Urine WBC 6-10 H Ur Squamous Epith Cells 0-2 Urine Bacteria None Seen Hyaline Casts 0-2 Urine Opiates Screen Not Detected Ur Buprenorphine Scrn Not Detected Ur Oxycodone Screen Not Detected Urine Methadone Screen Not Detected Urine Fentanyl Screen Not Detected Ur Barbiturates Screen Not Detected Ur Phencyclidine Scrn Not Detected Ur Amphetamines Screen Not Detected U Benzodiazepines Scrn Not Detected Urine Cocaine Screen Not Detected U Marijuana (THC) Screen Not Detected Ethyl Alcohol Influenza Type A (PCR) Influenza Type B (PCR) RSV RNA Qual (PCR) SARS-CoV-2 RNA (RT-PCR) Assessment and Plan (1) Sepsis: Status: Acute (2) Acute metabolic encephalopathy: Status: Acute (3) Acute UTI: Status: Acute (4) Unwitnessed fall: Status: Acute (5) Rhabdomyolysis: Status: Acute (6) JEROME (acute kidney injury): Status: Acute (7) Fracture of right first rib: Status: Acute (8) Alcohol use disorder: Status: Acute Plan 69-year-old male with a history of hypertension, 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 acute metabolic encephalopathy with sepsis due to UTI - WBC 7.7, tachycardic, febrile, lactic acid 2.9 and 2.6 on repeat (secondary to rhabdo), blood cultures x2 pending - UA +, culture pending - head CT negative - c-spine CT negative - chest CT with R non-displaced first rib fx - a/p CT without acute findings - started on ceftriaxone in ED, continue - follow cbc and bmp unwitnessed fall with rhabdo, hx previous CVA with R weakness/contracture UE - head CT negative - c-spine CT negative - chest CT with R non-displaced first rib fx - a/p CT without acute findings - CPK 939 - lactic acid 2.9, 2.6 on repeat due to rhabdo, improving with IVF - given 30cc/kg fluid bolus in ED, continue LR 50ml/hr - follow CPK elevated trop/abnormal EKG - trop elevated at 35.8, 40.6 on repeat - EKG with sinus dimas and abnormal T waves, possible lateral ischemia - echo - cardiology consult - monitor on tele JEROME - cr 1.95 - IVF as above - monitor bmp acute R 1st rib fx - non-displaced - pain management alcohol use disorder - IV thiamine - monitor CIWA - addiction med consult presumed full code VTE prophy: lovenox Pt with acute metabolic encephalopathy and sepsis secondary to UTI complicated to unwitnessed fall and rhabdo, requiring admission for at least 2 midnights stay for IV abx, fluids and monitoring. Quality Stroke Does the patient have a stroke diagnosis?: No VTE Prior VTE?: No VTE Risk Level:: Medical - moderate - high VTE Device Contraindication: Treatment Not Indicated VTE Drug Contraindication: N/A - Med Ordered
[2024-12-03] MEDS: Enoxaparin Sodium 40 MG/0.4 ML SYRINGE SUBCUT (03:07)
[2024-12-03] MEDS: Thiamine HCL 100 MG in 0.9 % Sodium Chloride 100 ML 202 MG IV (03:07)
[2024-12-03] MEDS: Lactated Ringers 1,000 ML 100 ML IVCONT (03:20)
[2024-12-03 06:16] LABS: MANUAL DIFF FLAG NO
[2024-12-03 06:32] LABS: Basophils Absolute Auto 0.1 X10*3/uL (0.0-0.2); Eosinophils Absolute Auto 0.1 X10*3/uL (0.0-0.4); Eosinophils Percent Auto 1.3 % (0-4); Hematocrit 31.3 % (42.0-52.0); Hemoglobin 10.6 g/dl (14.0-18.0); Imm Gran Abs Auto 0.04 X10*3/uL (0.00-0.03); Imm Gran Pct Auto 0.5 % (0.0-0.4); Lymphocytes Absolute Auto 1.8 X10*3/uL (1.2-4.9); Mean Corpuscular HGB Conc 33.9 g/dl (31.0-36.0); Mean Corpuscular Hemoglobin 31.8 pg (27.0-33.0); Mean Platelet Volume 10.5 fL (9.4-12.4); Monocytes Absolute Auto 0.7 X10*3/uL (0.1-1.2); Monocytes Percent Auto 8.5 % (2-11); Neutrophils Absolute Auto 4.9 x10*3/uL (2.0-8.3); Neutrophils Percent Auto 64.7 % (45-73); Platelet Count 223 X10*3/uL (160-400); Red Blood Count 3.33 X10*6/uL (4.60-5.80); Red Cell Distribution Width 13.2 % (11.0-16.0); White Blood Count 7.6 X10*3/uL (4.8-10.8)
[2024-12-03 06:39] LABS: Anion Gap 11 (12-20); Blood Urea Nitrogen 29 mg/dL (9-16); Calcium 8.3 mg/dL (8.4-10.2); Carbon Dioxide 26 mmol/L (22-29); Chloride 108 mmol/L (96-108); Creatinine Clr Calc Pharmacy 52.1; Estimated Glomerular Filt Rate 59; Glucose Random 83 mg/dL (60-115); Iron 36 mcg/dL (45-160); Percent Iron Saturation 16 % (15-50); Potassium 3.8 mmol/L (3.3-5.1); Sodium 141 mmol/L (135-145); Total Iron Binding Capacity 227 mcg/dL (228-428); Unsaturated Iron Binding 191 ug/dL
--- NOTE | 2024-12-03 07:24 | PC.NURSE ---
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 History limited as the patient is currently altered, only alert to self. Per ED note, Patient was found down on the ground of unclear duration of time. He is covered in urine and dirt. Workup in the ED included muniz scan with negative head CT, negative C-spine CT. Chest CT with 1st right rib nondisplaced fracture. Abdominopelvic CT without any acute findings. Patient was febrile when he arrived with JEROME and elevated CPK of 939. He was given fluid bolus and ceftriaxone. UA is positive for urinary tract infection. Troponin elevated at 35.8, 40.6 on repeat, EKG with abnormal T-waves in lateral leads. Patient alert to self, difficult to understand at time. Laughs out loud intermittently. Unkempt, cachetic and maladorous. Sl resistant with nursing care. court monitor maintained and sbrady noted. Respirations even and non-labored Abdomen flat, soft, non-tender with positive bowel sounds. Positive pedal pulses with no edema. Incontinent of a large amount of urine. Incontinence care provided and male purewick applied. Reddened pressure areas noted to bilat buttocks and right hip. [facility] Medical History Stroke Hypertension Psoriasis
[2024-12-03] MEDS: Thiamine HCL 100 MG TABLET PO (08:01)
[2024-12-03] MEDS: Folic Acid 1 MG TABLET PO (08:01)
[2024-12-03] MEDS: Multivitamin TABLET 1 TAB PO (08:01)
[2024-12-03] MEDS: Lidocaine 4 % Patch ADH..PATCH 1 PATCH TRANSDERMA (09:05)
--- NOTE | 2024-12-03 10:55 | PC.NURSE ---
PT at the bedside to provide consult.
--- NOTE | 2024-12-03 10:56 | PC.NURSE ---
Patient brother called - Phi
[2024-12-03 11:23] LABS: Folate 16.1 ng/mL (> or = 4.0); Vitamin B12 390 pg/mL (200-900)
[2024-12-03] MEDS: Thiamine HCL 500 MG in 0.9 % Sodium Chloride 100 ML 210 MG IV ×2 (11:24→23:39)
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
--- NOTE | 2024-12-03 14:12 | MHC.CM.PN ---
pt lives with cousin who is his inventory control specialist pt has own transportion home dc plan tbd home w/family vs str
--- NOTE | 2024-12-03 15:44 | P.PNIM_ITS ---
Subjective Subjective Date of Service: 12/03/24 Interval History: states he fell because it was hot outside denies EtOH intake Review of Systems Review of Systems: Yes all other systems are reviewed and are negative Physical Exam 2 Vital Signs: Vital Signs: Last Vital Signs Temp 98.1 F 12/03/24 14:00 Pulse 73 12/03/24 14:00 Resp 15 12/03/24 14:00 BP 130/70 12/03/24 14:00 Pulse Ox 98 12/03/24 14:00 O2 Del Method Room Air 12/03/24 14:00 BMI result Body Mass Index 24.3 Gen: in no acute distress, disheveled HEENT: sclera anicteric, moist mucus membranes Neck: supple Lungs: clear to auscultation bilaterally Heart: regular rate and rhythm, no murmurs Abd: soft, non-tender, non-distended Ext: no edema Skin: warm/well-perfused, psoriatic plaques Neuro: alert and oriented x3, R hemiparesis, R arm contracted Psych: appropriate affect Objective Data Active Medications Acetaminophen (Acetaminophen 325 Mg Tablet) 975 mg PO Q6H PRN PRN Reason: Pain, Mild 1-3,fever,headache Calcium Carbonate (Calcium Carbonate 750 Mg Tab.Chew) 750 mg PO Q4H PRN PRN Reason: Heartburn Ceftriaxone Sodium (Ceftriaxone Sodium 2 Gm Vial) 2 gm IVPUSH Q24H [facility] Enoxaparin Sodium (Enoxaparin Sodium 40 Mg/0.4 Ml Syringe) 40 mg SUBCUT Q24H [facility] Last Admin: 12/03/24 03:07 Dose: 40 mg Documented By: MANUELA Folic Acid (Folic Acid 1 Mg Tablet) 1 mg PO DAILY [facility] Stop: 12/06/24 08:59 Last Admin: 12/03/24 08:01 Dose: 1 mg Documented By: KATIE Lactated Ringer's (Lr) 1,000 mls @ 50 mls/hr IVCONT .Q20H [facility] Last Infusion: 12/03/24 04:54 Dose: 50 mls/hr Documented By: MANUELA Thiamine HCl 500 mg/ Sodium (Chloride) 105 mls @ 210 mls/hr IV Q12H [facility] Last Infusion: 12/03/24 12:00 Dose: Infused Documented By: KATIE Lidocaine (Lidocaine 4 % Patch Adh..Patch) 1 patch TRANSDERMA DAILY [facility]; Protocol Last Admin: 12/03/24 09:05 Dose: 1 patch Documented By: KATIE Magnesium Hydroxide (Milk Of Magnesia 30 Ml Oral.Susp) 30 ml PO DAILY PRN PRN Reason: Constipation Melatonin (Melatonin 3 Mg Tablet) 6 mg PO BEDTIME PRN PRN Reason: Insomnia Multivitamins/Vitamin C (Multivitamin Tablet) 1 tab PO DAILY [facility] Stop: 12/06/24 08:59 Last Admin: 12/03/24 08:01 Dose: 1 tab Documented By: KATIE Ondansetron HCl (Ondansetron Hcl 4 Mg/2 Ml Vial) 4 mg IVPUSH Q8H PRN PRN Reason: Nausea and Vomiting Sodium Chloride (0.9 % Sodium Chloride Flush 3 Ml Syringe) 3 ml IVFLUSH QSHIFT [facility] Last Admin: 12/03/24 15:22 Dose: Not Given Documented By: EUGENE Non-Admin Reason: IV Running Labs 12/03/24 06:12 12/03/24 06:12 Labs: Laboratory Results - last 24 hr 12/02/24 12/02/24 12/02/24 17:58 18:33 20:16 MCV 91.4 MCH 31.8 MCHC 34.8 RDW 13.2 Plt Count 257 MPV 10.1 Immature Gran % (Auto) 0.4 Neut % (Auto) 86.8 H Lymph % (Auto) 6.1 L [place] % (Auto) 5.7 Eos % (Auto) 0.1 Baso % (Auto) 0.9 Lymph # (Auto) 0.5 L [place] # (Auto) 0.4 Eos # (Auto) 0.0 Baso # (Auto) 0.1 Abs Immat Gran (auto) 0.03 Absolute Neuts (auto) 6.7 Absolute Nucleated RBC 0.000 Nucleated RBC % (auto) 0.0 PT 12.6 H INR 1.1 Anion Gap 14 Estim Creat Clear Calc 32.3 Estimated GFR 34 Random Glucose 139 H Lactic Acid 2.9 H* Lactic Acid F/U @ 2Hr 2.6 H* Lactic Acid F/U @ 4Hr Calcium 9.1 Magnesium 2.1 Iron TIBC % Saturation Unsat Iron Binding Total Bilirubin 0.6 AST 46 H ALT 32 Alkaline Phosphatase 86 Ammonia 36 Total Creatine Kinase 939 H Troponin I High Sens 35.8 H D 40.6 H Total Protein 6.4 L Albumin 4.0 Vitamin B12 Folate Urine Color Urine Appearance Urine pH Ur Specific [place] Urine Protein Urine Glucose (UA) Urine Ketones Urine Blood Urine Nitrite Ur Leukocyte Esterase Urine RBC Urine WBC Ur Squamous Epith Cells Urine Bacteria Hyaline Casts Urine Opiates Screen Ur Buprenorphine Scrn Ur Oxycodone Screen Urine Methadone Screen Urine Fentanyl Screen Ur Barbiturates Screen Ur Phencyclidine Scrn Ur Amphetamines Screen U Benzodiazepines Scrn Urine Cocaine Screen U Marijuana (THC) Screen Ethyl Alcohol < 10 Influenza Type A (PCR) NEGATIVE Influenza Type B (PCR) NEGATIVE RSV RNA Qual (PCR) NEGATIVE SARS-CoV-2 RNA (RT-PCR) NEGATIVE 12/02/24 12/02/24 12/03/24 20:43 22:53 06:12 MCV 94.0 MCH 31.8 MCHC 33.9 RDW 13.2 Plt Count 223 MPV 10.5 Immature Gran % (Auto) 0.5 H Neut % (Auto) 64.7 Lymph % (Auto) 24.0 [place] % (Auto) 8.5 Eos % (Auto) 1.3 Baso % (Auto) 1.0 Lymph # (Auto) 1.8 [place] # (Auto) 0.7 Eos # (Auto) 0.1 Baso # (Auto) 0.1 Abs Immat Gran (auto) 0.04 H Absolute Neuts (auto) 4.9 Absolute Nucleated RBC 0.000 Nucleated RBC % (auto) 0.0 PT INR Anion Gap 11 L Estim Creat Clear Calc 52.1 Estimated GFR 59 Random Glucose 83 Lactic Acid Lactic Acid F/U @ 2Hr Lactic Acid F/U @ 4Hr 0.9 Calcium 8.3 L D Magnesium Iron 36 L TIBC 227 L % Saturation 16 Unsat Iron Binding 191 Total Bilirubin AST ALT Alkaline Phosphatase Ammonia Total Creatine Kinase 722 H Troponin I High Sens Total Protein Albumin Vitamin B12 Folate Urine Color Dark Yellow Urine Appearance Clear Urine pH 6.5 Ur Specific [place] 1.025 Urine Protein 100 (2+) H Urine Glucose (UA) 250 H Urine Ketones Negative Urine Blood Small (1+) H Urine Nitrite Negative Ur Leukocyte Esterase Negative Urine RBC 3-5 H Urine WBC 6-10 H Ur Squamous Epith Cells 0-2 Urine Bacteria None Seen Hyaline Casts 0-2 Urine Opiates Screen Not Detected Ur Buprenorphine Scrn Not Detected Ur Oxycodone Screen Not Detected Urine Methadone Screen Not Detected Urine Fentanyl Screen Not Detected Ur Barbiturates Screen Not Detected Ur Phencyclidine Scrn Not Detected Ur Amphetamines Screen Not Detected U Benzodiazepines Scrn Not Detected Urine Cocaine Screen Not Detected U Marijuana (THC) Screen Not Detected Ethyl Alcohol Influenza Type A (PCR) Influenza Type B (PCR) RSV RNA Qual (PCR) SARS-CoV-2 RNA (RT-PCR) 12/03/24 10:23 MCV MCH MCHC RDW Plt Count MPV Immature Gran % (Auto) Neut % (Auto) Lymph % (Auto) [place] % (Auto) Eos % (Auto) Baso % (Auto) Lymph # (Auto) [place] # (Auto) Eos # (Auto) Baso # (Auto) Abs Immat Gran (auto) Absolute Neuts (auto) Absolute Nucleated RBC Nucleated RBC % (auto) PT INR Anion Gap Estim Creat Clear Calc Estimated GFR Random Glucose Lactic Acid Lactic Acid F/U @ 2Hr Lactic Acid F/U @ 4Hr Calcium Magnesium Iron TIBC % Saturation Unsat Iron Binding Total Bilirubin AST ALT Alkaline Phosphatase Ammonia Total Creatine Kinase Troponin I High Sens Total Protein Albumin Vitamin B12 390 Folate 16.1 Urine Color Urine Appearance Urine pH Ur Specific [place] Urine Protein Urine Glucose (UA) Urine Ketones Urine Blood Urine Nitrite Ur Leukocyte Esterase Urine RBC Urine WBC Ur Squamous Epith Cells Urine Bacteria Hyaline Casts Urine Opiates Screen Ur Buprenorphine Scrn Ur Oxycodone Screen Urine Methadone Screen Urine Fentanyl Screen Ur Barbiturates Screen Ur Phencyclidine Scrn Ur Amphetamines Screen U Benzodiazepines Scrn Urine Cocaine Screen U Marijuana (THC) Screen Ethyl Alcohol Influenza Type A (PCR) Influenza Type B (PCR) RSV RNA Qual (PCR) SARS-CoV-2 RNA (RT-PCR) Microbiology Microbiology Results: Microbiology 12/02/24 21:02 Urine Culture - Preliminary Urine clean catch - Clean Catch Midstream No growth to date. Assessment and Plan (1) Alcohol use disorder: Status: Acute Plan d1 for 69yo M with HTN, prior CVA with R-sided weakness/RUE contracture, GERD, psoriasis, AUD found down on ground covered in urine and dirt, found to have 1st rib fx, UTI acute encephalopathy due to infection, sepsis due to UTI - improving, continue ceftriaxone 6/6-, follow BCx + UCx mild rhabdomyolysis - improved, conitnue IV fluids hyperthermia vs fever - could be from heat/impaired heat regulation due to EtOH vs sepsis, has resolved JEROME, prerenal - resolved after IV fluid resusciation acute 1st R rib fx - lidocaine patch lactic acidosis - due to dehydration; resolved with IV fluids troponins indeterminate/flat - EKG unchanged from prior; denies chest pain; cancel TTE + Cardiology consult AUD - IV thiamine, CIWA q4h, Addiction Med consult VTE ppx - enoxaparin dispo - STR per PT consultation, MOCA per OT indicating moderate cognitive impairment In my clinical judgment, the patient requires continued inpatient hospitalization for the following reasons: IV ABX + fluids Total time managing care of this patient today: 40 minutes. Quality Stroke Does the patient have a stroke diagnosis?: No VTE Prior VTE?: No VTE Risk Level:: Medical - moderate - high VTE Device Contraindication: Treatment Not Indicated VTE Drug Contraindication: N/A - Med Ordered
--- NOTE | 2024-12-03 15:52 | HO.ADDICTCON ---
History of Present Illness Date of Service: 12/03/2024 Chief Complaint: Fall Reason for Consult: alcohol use Sources of Information: patient interviewed and chart reviewed HPI Narrative: Patient is a 69 year old male with history of CVA with right sided weakness, who presented to [facility] ED after he was observed falling on the sidewalk while walking. In ED he was found to have mild rhabdo, UTI, rib fracture and encephalopathy. Consult requested as patient has history of AUD, and per ambulance report, when he was picked up he reported several alcohol containing drinks that morning. Patient seen in main ED while awaiting transfer to [facility] floor. He is awake, alert, pleasant and engaged in interview. He denies any alcohol use, stating that from time to time he will have a sip of a drink, but no more than that. When asked how many days per week he has a sip, he said rarely ever. Can not recall when he last had a drink-- maybe a week ago, maybe a month ago... He then shared that the only drinks he enjoys are Monster energy drinks because they help him move faster. He denies any withdrawal sx. He appears overall comfortable, and requesting to be left to watch the show playing on the TV. Labs reviewed, ETOH level 0 when in ED. Medical Evaluation Reviewed: Yes Review of Systems Constitutional: Reports as per HPI and Reports no additional constitutional complaints Gastrointestinal: Denies loose stools and Denies nausea Diagnostics Vital Signs (24Hr): Vital Signs - 24 hr 12/02/24 17:35 12/02/24 17:59 12/02/24 18:29 Temperature 103.8 F H Pulse Rate 106 H 97 97 Respiratory Rate 22 H 15 24 H Blood Pressure 137/65 128/66 129/79 Pulse Oximetry 94 92 97 Oxygen Delivery Method Room Air Room Air Room Air 12/02/24 18:46 12/02/24 19:14 12/02/24 19:43 Temperature Pulse Rate 93 88 78 Respiratory Rate 12 20 17 Blood Pressure 111/48 L 119/66 106/63 Pulse Oximetry 92 98 94 Oxygen Delivery Method Room Air Room Air Room Air 12/02/24 19:58 12/02/24 20:18 12/02/24 21:35 Temperature 98.7 F Pulse Rate 72 65 61 Respiratory Rate 16 20 14 Blood Pressure 113/63 114/56 L 122/68 Pulse Oximetry 95 100 97 Oxygen Delivery Method Room Air Room Air Room Air 12/02/24 21:56 12/02/24 22:13 12/02/24 22:28 Temperature Pulse Rate 59 58 58 Respiratory Rate 14 Blood Pressure 110/66 111/66 112/66 Pulse Oximetry 96 Oxygen Delivery Method Room Air 12/03/24 00:14 12/03/24 01:14 12/03/24 07:21 Temperature 97.5 F Pulse Rate 60 54 62 Respiratory Rate 16 13 12 Blood Pressure 125/71 131/74 123/96 H Pulse Oximetry 95 99 97 Oxygen Delivery Method Room Air Room Air Room Air 12/03/24 07:22 12/03/24 11:11 12/03/24 12:00 Temperature 98.0 F 98.0 F Pulse Rate 51 51 58 Respiratory Rate 16 14 Blood Pressure 123/96 H 123/96 H 135/77 Pulse Oximetry 96 96 97 Oxygen Delivery Method Room Air Room Air 12/03/24 12:56 12/03/24 14:00 Temperature 98.2 F 98.1 F Pulse Rate 63 73 Respiratory Rate 15 15 Blood Pressure 135/77 130/70 Pulse Oximetry 96 98 Oxygen Delivery Method Room Air Room Air BMI result Body Mass Index 24.3 Labs 12/03/24 06:12 12/03/24 06:12 Labs: Laboratory Results - last 48 hr 12/02/24 12/02/24 12/02/24 17:58 18:33 20:16 WBC 7.7 RBC 3.49 L Hgb 11.1 L Hct 31.9 L MCV 91.4 MCH 31.8 MCHC 34.8 RDW 13.2 Plt Count 257 MPV 10.1 Immature Gran % (Auto) 0.4 Neut % (Auto) 86.8 H Lymph % (Auto) 6.1 L [place] % (Auto) 5.7 Eos % (Auto) 0.1 Baso % (Auto) 0.9 Lymph # (Auto) 0.5 L [place] # (Auto) 0.4 Eos # (Auto) 0.0 Baso # (Auto) 0.1 Abs Immat Gran (auto) 0.03 Absolute Neuts (auto) 6.7 Absolute Nucleated RBC 0.000 Nucleated RBC % (auto) 0.0 PT 12.6 H INR 1.1 Sodium 141 Potassium 3.9 Chloride 105 Carbon Dioxide 26 Anion Gap 14 BUN 34 H Creatinine 1.95 H Estim Creat Clear Calc 32.3 Estimated GFR 34 Random Glucose 139 H Lactic Acid 2.9 H* Lactic Acid F/U @ 2Hr 2.6 H* Lactic Acid F/U @ 4Hr Calcium 9.1 Magnesium 2.1 Iron TIBC % Saturation Unsat Iron Binding Total Bilirubin 0.6 AST 46 H ALT 32 Alkaline Phosphatase 86 Ammonia 36 Total Creatine Kinase 939 H Troponin I High Sens 35.8 H D 40.6 H Total Protein 6.4 L Albumin 4.0 Vitamin B12 Folate Urine Color Urine Appearance Urine pH Ur Specific [place] Urine Protein Urine Glucose (UA) Urine Ketones Urine Blood Urine Nitrite Ur Leukocyte Esterase Urine RBC Urine WBC Ur Squamous Epith Cells Urine Bacteria Hyaline Casts Urine Opiates Screen Ur Buprenorphine Scrn Ur Oxycodone Screen Urine Methadone Screen Urine Fentanyl Screen Ur Barbiturates Screen Ur Phencyclidine Scrn Ur Amphetamines Screen U Benzodiazepines Scrn Urine Cocaine Screen U Marijuana (THC) Screen Ethyl Alcohol < 10 Influenza Type A (PCR) NEGATIVE Influenza Type B (PCR) NEGATIVE RSV RNA Qual (PCR) NEGATIVE SARS-CoV-2 RNA (RT-PCR) NEGATIVE 12/02/24 12/02/24 12/03/24 20:43 22:53 06:12 WBC 7.6 RBC 3.33 L Hgb 10.6 L Hct 31.3 L MCV 94.0 MCH 31.8 MCHC 33.9 RDW 13.2 Plt Count 223 MPV 10.5 Immature Gran % (Auto) 0.5 H Neut % (Auto) 64.7 Lymph % (Auto) 24.0 [place] % (Auto) 8.5 Eos % (Auto) 1.3 Baso % (Auto) 1.0 Lymph # (Auto) 1.8 [place] # (Auto) 0.7 Eos # (Auto) 0.1 Baso # (Auto) 0.1 Abs Immat Gran (auto) 0.04 H Absolute Neuts (auto) 4.9 Absolute Nucleated RBC 0.000 Nucleated RBC % (auto) 0.0 PT INR Sodium 141 Potassium 3.8 Chloride 108 Carbon Dioxide 26 Anion Gap 11 L BUN 29 H Creatinine 1.21 Estim Creat Clear Calc 52.1 Estimated GFR 59 Random Glucose 83 Lactic Acid Lactic Acid F/U @ 2Hr Lactic Acid F/U @ 4Hr 0.9 Calcium 8.3 L D Magnesium Iron 36 L TIBC 227 L % Saturation 16 Unsat Iron Binding 191 Total Bilirubin AST ALT Alkaline Phosphatase Ammonia Total Creatine Kinase 722 H Troponin I High Sens Total Protein Albumin Vitamin B12 Folate Urine Color Dark Yellow Urine Appearance Clear Urine pH 6.5 Ur Specific [place] 1.025 Urine Protein 100 (2+) H Urine Glucose (UA) 250 H Urine Ketones Negative Urine Blood Small (1+) H Urine Nitrite Negative Ur Leukocyte Esterase Negative Urine RBC 3-5 H Urine WBC 6-10 H Ur Squamous Epith Cells 0-2 Urine Bacteria None Seen Hyaline Casts 0-2 Urine Opiates Screen Not Detected Ur Buprenorphine Scrn Not Detected Ur Oxycodone Screen Not Detected Urine Methadone Screen Not Detected Urine Fentanyl Screen Not Detected Ur Barbiturates Screen Not Detected Ur Phencyclidine Scrn Not Detected Ur Amphetamines Screen Not Detected U Benzodiazepines Scrn Not Detected Urine Cocaine Screen Not Detected U Marijuana (THC) Screen Not Detected Ethyl Alcohol Influenza Type A (PCR) Influenza Type B (PCR) RSV RNA Qual (PCR) SARS-CoV-2 RNA (RT-PCR) 12/03/24 10:23 WBC RBC Hgb Hct MCV MCH MCHC RDW Plt Count MPV Immature Gran % (Auto) Neut % (Auto) Lymph % (Auto) [place] % (Auto) Eos % (Auto) Baso % (Auto) Lymph # (Auto) [place] # (Auto) Eos # (Auto) Baso # (Auto) Abs Immat Gran (auto) Absolute Neuts (auto) Absolute Nucleated RBC Nucleated RBC % (auto) PT INR Sodium Potassium Chloride Carbon Dioxide Anion Gap BUN Creatinine Estim Creat Clear Calc Estimated GFR Random Glucose Lactic Acid Lactic Acid F/U @ 2Hr Lactic Acid F/U @ 4Hr Calcium Magnesium Iron TIBC % Saturation Unsat Iron Binding Total Bilirubin AST ALT Alkaline Phosphatase Ammonia Total Creatine Kinase Troponin I High Sens Total Protein Albumin Vitamin B12 390 Folate 16.1 Urine Color Urine Appearance Urine pH Ur Specific [place] Urine Protein Urine Glucose (UA) Urine Ketones Urine Blood Urine Nitrite Ur Leukocyte Esterase Urine RBC Urine WBC Ur Squamous Epith Cells Urine Bacteria Hyaline Casts Urine Opiates Screen Ur Buprenorphine Scrn Ur Oxycodone Screen Urine Methadone Screen Urine Fentanyl Screen Ur Barbiturates Screen Ur Phencyclidine Scrn Ur Amphetamines Screen U Benzodiazepines Scrn Urine Cocaine Screen U Marijuana (THC) Screen Ethyl Alcohol Influenza Type A (PCR) Influenza Type B (PCR) RSV RNA Qual (PCR) SARS-CoV-2 RNA (RT-PCR) Mental Status Exam Mental Status Exam Level of Consciousness: Awake, Appropriate and Alert Patient Behavior: Cooperative Affect Description: Appropriate Speech Pattern: Garbled Thought Content: positive for [place] Judgement: Fair Medications Medications Current Medications Acetaminophen (Acetaminophen 325 Mg Tablet) 975 mg PO Q6H PRN PRN Reason: Pain, Mild 1-3,fever,headache Calcium Carbonate (Calcium Carbonate 750 Mg Tab.Chew) 750 mg PO Q4H PRN PRN Reason: Heartburn Ceftriaxone Sodium (Ceftriaxone Sodium 2 Gm Vial) 2 gm IVPUSH Q24H [facility] Enoxaparin Sodium (Enoxaparin Sodium 40 Mg/0.4 Ml Syringe) 40 mg SUBCUT Q24H [facility] Last Admin: 12/03/24 03:07 Dose: 40 mg Folic Acid (Folic Acid 1 Mg Tablet) 1 mg PO DAILY [facility] Stop: 12/06/24 08:59 Last Admin: 12/03/24 08:01 Dose: 1 mg Lactated Ringer's (Lr) 1,000 mls @ 50 mls/hr IVCONT .Q20H [facility] Last Infusion: 12/03/24 04:54 Dose: 50 mls/hr Thiamine HCl 500 mg/ Sodium (Chloride) 105 mls @ 210 mls/hr IV Q12H [facility] Last Infusion: 12/03/24 12:00 Dose: Infused Lidocaine (Lidocaine 4 % Patch Adh..Patch) 1 patch TRANSDERMA DAILY [facility]; Protocol Last Admin: 12/03/24 09:05 Dose: 1 patch Magnesium Hydroxide (Milk Of Magnesia 30 Ml Oral.Susp) 30 ml PO DAILY PRN PRN Reason: Constipation Melatonin (Melatonin 3 Mg Tablet) 6 mg PO BEDTIME PRN PRN Reason: Insomnia Multivitamins/Vitamin C (Multivitamin Tablet) 1 tab PO DAILY [facility] Stop: 12/06/24 08:59 Last Admin: 12/03/24 08:01 Dose: 1 tab Ondansetron HCl (Ondansetron Hcl 4 Mg/2 Ml Vial) 4 mg IVPUSH Q8H PRN PRN Reason: Nausea and Vomiting Sodium Chloride (0.9 % Sodium Chloride Flush 3 Ml Syringe) 3 ml IVFLUSH QSHIFT [facility] Last Admin: 12/03/24 15:22 Dose: Not Given Allergies Allergies Allergy/AdvReac Type Severity Reaction Status Date / Time No Known Allergies Allergy Verified 12/02/24 17:40 Assessment & Plan Assessment & Plan (1) Acute UTI: Status: Acute Code(s): N39.0 - Urinary tract infection, site not specified Assessment and Plan: patient denies any alcohol use, unclear if he is a reliable historian--may be helpful to obtain collateral high dose IV thiamine ordered -- in the event of WE no withdrawal sx reported or observed--CIWA in place declines any intervention related to alcohol use Total time managing care of this patient today _35___ minutes. PMFSH Past Medical History Medical History Stroke Hypertension Psoriasis Family History Family History Father Cancer Mother Lung cancer Surgical History Surgical History History of inguinal hernia repair Social History Social History Household Members: None Housing: House Do you presently have visiting nurse or other home services: Yes (pt reported [employer] is not coming to take care of him) Unable to assess alcohol history related to: Unknown Alcohol intake: current Alcohol intake frequency: 0-2 drinks per day Alcohol type: beer Patient Tobacco Use Status: Former Tobacco user Tobacco use type: Cigarette Cigarettes Per Day: 3 Advance Directives Date on File: 02/21/23 service: No Cognitive needs: Yes Hearing needs: No Vision needs: Yes
[2024-12-03] MEDS: cefTRIAXone sodium 2 GM VIAL IVPUSH (17:16)
[2024-12-03] MEDS: Lactated Ringers 1,000 ML 50 ML IVCONT (21:28)
[2024-12-03] MEDS: 0.9 % Sodium Chloride Flush 3 ML SYRINGE IVFLUSH (21:35)
[2024-12-04] VITALS: BP 147/90; PULSE 79; RESP 18; TEMP 37.1; O2SAT 96
[2024-12-04] MEDS: Melatonin 3 MG TABLET 6 MG PO ×2 (02:05→21:40)
[2024-12-04] MEDS: Enoxaparin Sodium 40 MG/0.4 ML SYRINGE SUBCUT (02:06)
[2024-12-04 06:19] LABS: MANUAL DIFF FLAG NO
[2024-12-04 06:24] LABS: Basophils Absolute Auto 0.1 X10*3/uL (0.0-0.2); Eosinophils Absolute Auto 0.1 X10*3/uL (0.0-0.4); Eosinophils Percent Auto 1.7 % (0-4); Hematocrit 30.1 % (42.0-52.0); Hemoglobin 10.3 g/dl (14.0-18.0); Imm Gran Abs Auto 0.02 X10*3/uL (0.00-0.03); Imm Gran Pct Auto 0.3 % (0.0-0.4); Lymphocytes Absolute Auto 1.5 X10*3/uL (1.2-4.9); Lymphocytes Percent Auto 21.9 % (20-40); Mean Corpuscular HGB Conc 34.2 g/dl (31.0-36.0); Mean Corpuscular Hemoglobin 31.6 pg (27.0-33.0); Mean Corpuscular Volume 92.3 fL (80.0-98.0); Mean Platelet Volume 10.2 fL (9.4-12.4); Monocytes Absolute Auto 0.6 X10*3/uL (0.1-1.2); Monocytes Percent Auto 8.9 % (2-11); Neutrophils Absolute Auto 4.6 x10*3/uL (2.0-8.3); Neutrophils Percent Auto 66.2 % (45-73); Platelet Count 215 X10*3/uL (160-400); Red Blood Count 3.26 X10*6/uL (4.60-5.80); Red Cell Distribution Width 13.2 % (11.0-16.0); White Blood Count 6.9 X10*3/uL (4.8-10.8)
[2024-12-04 06:37] LABS: Anion Gap 10 (12-20); Blood Urea Nitrogen 31 mg/dL (9-16); Calcium 8.3 mg/dL (8.4-10.2); Carbon Dioxide 26 mmol/L (22-29); Chloride 109 mmol/L (96-108); Estimated Glomerular Filt Rate > 60; Glucose Random 87 mg/dL (60-115); Potassium 3.7 mmol/L (3.3-5.1); Sodium 141 mmol/L (135-145)
[2024-12-04 07:16] VITALS: BP 144/83; PULSE 57; RESP 17; TEMP 36.4; O2SAT 93
[2024-12-04] MEDS: Lidocaine 4 % Patch ADH..PATCH 1 PATCH TRANSDERMA (08:32)
[2024-12-04] MEDS: Folic Acid 1 MG TABLET PO (08:35)
[2024-12-04] MEDS: Ferrous Sulfate 324 MG TABLET.DR PO (08:35)
[2024-12-04] MEDS: Multivitamin TABLET 1 TAB PO (08:35)
[2024-12-04 11:18] VITALS: BP 138/82; PULSE 76; RESP 17; TEMP 36.1; O2SAT 93
--- NOTE | 2024-12-04 11:23 | HO.PM.IMPN ---
Subjective Subjective Date of Service: 12/04/24 Interval History: only drinks a little alcohol but unable to quantify denies rib pain has some trouble swallowing Review of Systems Review of Systems: Yes all other systems are reviewed and are negative Physical Exam Vital Signs: Vital Signs: Last Vital Signs Temp 96.9 F 12/04/24 11:18 Pulse 76 12/04/24 11:18 Resp 17 12/04/24 11:18 BP 138/82 12/04/24 11:18 Pulse Ox 93 12/04/24 11:18 O2 Del Method Room Air 12/04/24 11:18 BMI result Body Mass Index 22.3 Gen: in no acute distress, disheveled HEENT: sclera anicteric, moist mucus membranes Neck: supple Lungs: clear to auscultation bilaterally Heart: regular rate and rhythm, no murmurs Abd: soft, non-tender, non-distended Ext: no edema Skin: warm/well-perfused, psoriatic plaques Neuro: alert and oriented x3, R hemiparesis, R arm contracted Psych: appropriate affect Objective Data Active Medications Acetaminophen (Acetaminophen 325 Mg Tablet) 975 mg PO Q6H PRN PRN Reason: Pain, Mild 1-3,fever,headache Calcium Carbonate (Calcium Carbonate 750 Mg Tab.Chew) 750 mg PO Q4H PRN PRN Reason: Heartburn Ceftriaxone Sodium (Ceftriaxone Sodium 1 Gm Vial) 1 gm IVPUSH Q24H [facility] Enoxaparin Sodium (Enoxaparin Sodium 40 Mg/0.4 Ml Syringe) 40 mg SUBCUT Q24H [facility] Last Admin: 12/04/24 02:06 Dose: 40 mg Documented By: CATA Ferrous Sulfate (Ferrous Sulfate 324 Mg Tablet.) 324 mg PO DAILY [facility] Last Admin: 12/04/24 08:35 Dose: 324 mg Documented By: ELLEN Folic Acid (Folic Acid 1 Mg Tablet) 1 mg PO DAILY [facility] Stop: 12/06/24 08:59 Last Admin: 12/04/24 08:35 Dose: 1 mg Documented By: ELLEN Thiamine HCl 500 mg/ Sodium (Chloride) 105 mls @ 210 mls/hr IV Q12H [facility] Last Infusion: 12/04/24 00:10 Dose: Infused Documented By: CATA Lidocaine (Lidocaine 4 % Patch Adh..Patch) 1 patch TRANSDERMA DAILY [facility]; Protocol Last Admin: 12/04/24 08:32 Dose: 1 patch Documented By: ELLEN Magnesium Hydroxide (Milk Of Magnesia 30 Ml Oral.Susp) 30 ml PO DAILY PRN PRN Reason: Constipation Melatonin (Melatonin 3 Mg Tablet) 6 mg PO BEDTIME PRN PRN Reason: Insomnia Last Admin: 12/04/24 02:05 Dose: 6 mg Documented By: CAAT Multivitamins/Vitamin C (Multivitamin Tablet) 1 tab PO DAILY [facility] Stop: 12/06/24 08:59 Last Admin: 12/04/24 08:35 Dose: 1 tab Documented By: ELLEN Ondansetron HCl (Ondansetron Hcl 4 Mg/2 Ml Vial) 4 mg IVPUSH Q8H PRN PRN Reason: Nausea and Vomiting Sodium Chloride (0.9 % Sodium Chloride Flush 3 Ml Syringe) 3 ml IVFLUSH QSHIFT [facility] Last Admin: 12/03/24 21:35 Dose: 3 ml Documented By: CATA Labs 12/04/24 06:12 12/04/24 06:12 Labs: Laboratory Results - last 24 hr 12/03/24 12/04/24 10:23 06:12 MCV 92.3 MCH 31.6 MCHC 34.2 RDW 13.2 Plt Count 215 MPV 10.2 Immature Gran % (Auto) 0.3 Neut % (Auto) 66.2 Lymph % (Auto) 21.9 [place] % (Auto) 8.9 Eos % (Auto) 1.7 Baso % (Auto) 1.0 Lymph # (Auto) 1.5 [place] # (Auto) 0.6 Eos # (Auto) 0.1 Baso # (Auto) 0.1 Abs Immat Gran (auto) 0.02 Absolute Neuts (auto) 4.6 Absolute Nucleated RBC 0.000 Nucleated RBC % (auto) 0.0 Anion Gap 10 L Estim Creat Clear Calc 56.0 Estimated GFR > 60 Random Glucose 87 Calcium 8.3 L Total Creatine Kinase 511 H Vitamin B12 390 Folate 16.1 Microbiology Microbiology Results: Microbiology 12/02/24 21:02 Urine Culture - Final Urine clean catch - Clean Catch Midstream 12/02/24 18:12 Blood Culture - Preliminary Blood - Venous No growth after 24 hours. 12/02/24 17:58 Blood Culture - Preliminary Blood - Venous No growth after 24 hours. Assessment and Plan (1) Alcohol use disorder: Status: Acute Plan d2 for 69yo M with HTN, prior CVA with R-sided weakness/RUE contracture, GERD, psoriasis, AUD found down on ground covered in urine and dirt, found to have 1st rib fx, UTI acute encephalopathy due to infection, sepsis due to UTI - resolved continue ceftriaxone 6/6-, follow BCx + UCx mild rhabdomyolysis - improved, continue IV fluids hyperthermia vs fever - could be from heat/impaired heat regulation due to EtOH vs sepsis, has resolved JEROME, prerenal - resolved after IV fluid resuscitation acute 1st R rib fx - lidocaine patch though minimally symptomatic lactic acidosis - due to dehydration; resolved with IV fluids troponins indeterminate/flat - EKG unchanged from prior; denies chest pain; canceled TTE + Cardiology consult AUD - IV thiamine, CIWA q4h, Addiction Med consulted but pt in denial VTE ppx - enoxaparin dispo - STR per PT consultation, MOCA per OT indicating moderate cognitive impairment In my clinical judgment, the patient requires continued inpatient hospitalization for the following reasons: placement Total time managing care of this patient today: 35 minutes. Quality Stroke Does the patient have a stroke diagnosis?: No VTE Prior VTE?: No VTE Risk Level:: Medical - moderate - high VTE Device Contraindication: Treatment Not Indicated VTE Drug Contraindication: N/A - Med Ordered
--- NOTE | 2024-12-04 12:24 | MHC.CM.PN ---
Addendum entered by Ashly Ndiaye 12/05/24 09:53: CIWA score not available yet for today. Addendum entered by Aslhy Ndiaye 12/04/24 13:33: [facility] Patient's CIWA score(must be 0) in the morning for further consideration of this Patient. CM will follow. Original Note: PT is recommending STR; this CM has updated existing referrals and will continue to follow.
[2024-12-04] MEDS: Thiamine HCL 500 MG in 0.9 % Sodium Chloride 100 ML 210 MG IV ×2 (13:09→22:56)
[2024-12-04] MEDS: 0.9 % Sodium Chloride Flush 3 ML SYRINGE IVFLUSH ×3 (13:10→22:56)
--- NOTE | 2024-12-04 14:12 | PC.NURSE ---
This RN called patients son Phi but he lives in [place] and isnt as involved with him and there is strange family dynamics since living with the Cousin Joyce Meraz. I tired two different phone numbers and both were none working . trying to see who has his EBT card and approx 97.00 that he thinks were in his pants pocket. patient does not have any pants that this RN has seen. Will pass this on to overnight caregiver nurse. This RN has not seen any family here
[2024-12-04 15:47] VITALS: BP 152/81; PULSE 80; RESP 17; TEMP 36.4; O2SAT 95
[2024-12-04] MEDS: cefTRIAXone sodium 1 GM VIAL IVPUSH (17:38)
[2024-12-04 20:00] VITALS: BP 131/58; PULSE 63; RESP 18; TEMP 37.2; O2SAT 96
[2024-12-04 23:23] VITALS: BP 136/79; PULSE 74; RESP 18; TEMP 36.2; O2SAT 98
[2024-12-05] MEDS: Enoxaparin Sodium 40 MG/0.4 ML SYRINGE SUBCUT (03:16)
[2024-12-05 03:50] VITALS: BP 145/71; PULSE 61; RESP 18; TEMP 36.5; O2SAT 98
--- NOTE | 2024-12-05 06:01 | PC.NURSE ---
Attempt made to ED it security consulting director and Security to locate patient belongings, reports no belongings found for this patient. Pt reports clothes, money, debit card and EBT card missing. This RN and FUEL HANDLER searched room and unable to locate belongings. Noted on 12/02 by ED RN that these belongings were present and verified with patient however when patient transferred to the floor, floor RN documented these belongings were not present on 12/03. Fuel Storage Technician and it security consulting director made aware of missing belongings. Incident report filed.
[2024-12-05 07:06] VITALS: BP 154/81; PULSE 56; RESP 17; TEMP 36.1; O2SAT 93
[2024-12-05 07:46] LABS: MANUAL DIFF FLAG NO
[2024-12-05 07:54] LABS: Basophils Absolute Auto 0.1 X10*3/uL (0.0-0.2); Basophils Percent Auto 1.2 % (0-2); Eosinophils Absolute Auto 0.1 X10*3/uL (0.0-0.4); Eosinophils Percent Auto 2.2 % (0-4); Hematocrit 31.2 % (42.0-52.0); Hemoglobin 10.2 g/dl (14.0-18.0); Imm Gran Abs Auto 0.02 X10*3/uL (0.00-0.03); Imm Gran Pct Auto 0.3 % (0.0-0.4); Lymphocytes Absolute Auto 1.4 X10*3/uL (1.2-4.9); Lymphocytes Percent Auto 21.6 % (20-40); Mean Corpuscular HGB Conc 32.7 g/dl (31.0-36.0); Mean Corpuscular Volume 94.8 fL (80.0-98.0); Mean Platelet Volume 10.9 fL (9.4-12.4); Monocytes Absolute Auto 0.5 X10*3/uL (0.1-1.2); Monocytes Percent Auto 8.3 % (2-11); Neutrophils Absolute Auto 4.3 x10*3/uL (2.0-8.3); Neutrophils Percent Auto 66.4 % (45-73); Platelet Count 212 X10*3/uL (160-400); Red Blood Count 3.29 X10*6/uL (4.60-5.80); Red Cell Distribution Width 13.3 % (11.0-16.0); White Blood Count 6.5 X10*3/uL (4.8-10.8)
[2024-12-05 08:04] LABS: Anion Gap 14 (12-20); Blood Urea Nitrogen 24 mg/dL (9-16); Calcium 8.3 mg/dL (8.4-10.2); Carbon Dioxide 25 mmol/L (22-29); Chloride 110 mmol/L (96-108); Creatinine Clr Calc Pharmacy 55.5; Estimated Glomerular Filt Rate > 60; Glucose Random 87 mg/dL (60-115); Potassium 3.5 mmol/L (3.3-5.1); Sodium 145 mmol/L (135-145)
[2024-12-05] MEDS: Multivitamin TABLET 1 TAB PO (08:04)
[2024-12-05] MEDS: 0.9 % Sodium Chloride Flush 3 ML SYRINGE IVFLUSH ×2 (08:04→18:10)
[2024-12-05] MEDS: Folic Acid 1 MG TABLET PO (08:04)
[2024-12-05] MEDS: Ferrous Sulfate 324 MG TABLET.DR PO (08:04)
--- NOTE | 2024-12-05 10:15 | HO.PM.IMPN ---
Subjective Subjective Date of Service: 12/05/24 Interval History: denies rib pain Review of Systems Review of Systems: Yes all other systems are reviewed and are negative Physical Exam Vital Signs: Vital Signs: Last Vital Signs Temp 97.0 F 12/05/24 07:06 Pulse 56 12/05/24 07:06 Resp 17 12/05/24 07:06 BP 154/81 H 12/05/24 07:06 Pulse Ox 93 12/05/24 07:06 O2 Del Method Room Air 12/05/24 07:06 BMI result Body Mass Index 22.3 Gen: in no acute distress, disheveled HEENT: sclera anicteric, moist mucus membranes Neck: supple Lungs: clear to auscultation bilaterally Heart: regular rate and rhythm, no murmurs Abd: soft, non-tender, non-distended Ext: no edema Skin: warm/well-perfused, psoriatic plaques Neuro: alert and oriented x3, R hemiparesis, R arm contracted Psych: appropriate affect Objective Data Active Medications Acetaminophen (Acetaminophen 325 Mg Tablet) 975 mg PO Q6H PRN PRN Reason: Pain, Mild 1-3,fever,headache Calcium Carbonate (Calcium Carbonate 750 Mg Tab.Chew) 750 mg PO Q4H PRN PRN Reason: Heartburn Ceftriaxone Sodium (Ceftriaxone Sodium 1 Gm Vial) 1 gm IVPUSH Q24H [facility] Last Admin: 12/04/24 17:38 Dose: 1 gm Documented By: ELLEN Enoxaparin Sodium (Enoxaparin Sodium 40 Mg/0.4 Ml Syringe) 40 mg SUBCUT Q24H [facility] Last Admin: 12/05/24 03:16 Dose: 40 mg Documented By: CATA Ferrous Sulfate (Ferrous Sulfate 324 Mg Tablet.Dr) 324 mg PO DAILY [facility] Last Admin: 12/05/24 08:04 Dose: 324 mg Documented By: ELLEN Folic Acid (Folic Acid 1 Mg Tablet) 1 mg PO DAILY [facility] Stop: 12/06/24 08:59 Last Admin: 12/05/24 08:04 Dose: 1 mg Documented By: ELLEN Thiamine HCl 500 mg/ Sodium (Chloride) 105 mls @ 210 mls/hr IV Q12H [facility] Lidocaine (Lidocaine 4 % Patch Adh..Patch) 1 patch TRANSDERMA DAILY [facility]; Protocol Last Admin: 12/05/24 08:16 Dose: Not Given Documented By: ELLEN Non-Admin Reason: Patient Refused Magnesium Hydroxide (Milk Of Magnesia 30 Ml Oral.Susp) 30 ml PO DAILY PRN PRN Reason: Constipation Melatonin (Melatonin 3 Mg Tablet) 6 mg PO BEDTIME PRN PRN Reason: Insomnia Last Admin: 12/04/24 21:40 Dose: 6 mg Documented By: MIRANDA-XAVI Multivitamins/Vitamin C (Multivitamin Tablet) 1 tab PO DAILY [facility] Stop: 12/06/24 08:59 Last Admin: 12/05/24 08:04 Dose: 1 tab Documented By: ELLEN Ondansetron HCl (Ondansetron Hcl 4 Mg/2 Ml Vial) 4 mg IVPUSH Q8H PRN PRN Reason: Nausea and Vomiting Sodium Chloride (0.9 % Sodium Chloride Flush 3 Ml Syringe) 3 ml IVFLUSH QSHIFT [facility] Last Admin: 12/05/24 08:04 Dose: 3 ml Documented By: ELLEN Labs 12/05/24 07:06 12/05/24 07:06 Labs: Laboratory Results - last 24 hr 12/05/24 07:06 MCV 94.8 MCH 31.0 MCHC 32.7 RDW 13.3 Plt Count 212 MPV 10.9 Immature Gran % (Auto) 0.3 Neut % (Auto) 66.4 Lymph % (Auto) 21.6 [place] % (Auto) 8.3 Eos % (Auto) 2.2 Baso % (Auto) 1.2 Lymph # (Auto) 1.4 [place] # (Auto) 0.5 Eos # (Auto) 0.1 Baso # (Auto) 0.1 Abs Immat Gran (auto) 0.02 Absolute Neuts (auto) 4.3 Absolute Nucleated RBC 0.000 Nucleated RBC % (auto) 0.0 Anion Gap 14 Estim Creat Clear Calc 55.5 Estimated GFR > 60 Random Glucose 87 Calcium 8.3 L Microbiology Microbiology Results: Microbiology 12/02/24 18:12 Blood Culture - Preliminary Blood - Venous No growth after 48 hours. 12/02/24 17:58 Blood Culture - Preliminary Blood - Venous No growth after 48 hours. 12/02/24 21:02 Urine Culture - Final Urine clean catch - Clean Catch Midstream Assessment and Plan (1) Alcohol use disorder: Status: Acute Plan d3 for 69yo M with HTN, prior CVA with R-sided weakness/RUE contracture, GERD, psoriasis, AUD found down on ground covered in urine and dirt, found to have 1st rib fx, UTI acute encephalopathy due to infection, sepsis due to UTI - resolved; continue ceftriaxone /-, BCx neg, UCx <10^5 cFU/ mL mild rhabdomyolysis - improved with IV fluids hyperthermia vs fever - could be from heat/impaired heat regulation due to EtOH vs sepsis, resolved JEROME, prerenal - resolved after IV fluid resuscitation acute 1st R rib fx - lidocaine patch though minimally symptomatic lactic acidosis - due to dehydration; resolved with IV fluids troponins indeterminate/flat - EKG unchanged from prior; denies chest pain; canceled TTE + Cardiology consult AUD - IV->PO thiamine, no signs of withdrawal, Addiction Med consulted but pt in denial VTE ppx - enoxaparin dispo - STR per PT consultation, MOCA per OT indicating moderate cognitive impairment In my clinical judgment, the patient requires continued inpatient hospitalization for the following reasons: placement Total time managing care of this patient today: 35 minutes. Quality Stroke Does the patient have a stroke diagnosis?: No VTE Prior VTE?: No VTE Risk Level:: Medical - moderate - high VTE Device Contraindication: Treatment Not Indicated VTE Drug Contraindication: N/A - Med Ordered
[2024-12-05 11:27] VITALS: BP 152/84; PULSE 65; RESP 19; TEMP 36.3; O2SAT 96
[2024-12-05] MEDS: Thiamine HCL 100 MG TABLET PO (11:52)
[2024-12-05 15:46] VITALS: BP 157/82; PULSE 72; RESP 18; TEMP 36.7; O2SAT 95
[2024-12-05] MEDS: cefTRIAXone sodium 1 GM VIAL IVPUSH (18:11)
[2024-12-05 19:45] VITALS: BP 157/95; PULSE 72; RESP 16; TEMP 36.6; O2SAT 93
[2024-12-05 23:40] VITALS: BP 140/85; PULSE 84; RESP 16; TEMP 36.6; O2SAT 100
[2024-12-06] VITALS (7 sets, daily range): BP systolic 146–160; BP diastolic 81–90; PULSE 56–80; RESP 16–20; TEMP 36.5–37.1; O2SAT 94–97
[2024-12-06] MEDS: Enoxaparin Sodium 40 MG/0.4 ML SYRINGE SUBCUT (02:11)
[2024-12-06] MEDS: 0.9 % Sodium Chloride Flush 3 ML SYRINGE IVFLUSH ×4 (02:11→22:45)
[2024-12-06] MEDS: Melatonin 3 MG TABLET 6 MG PO ×2 (02:13→23:36)
[2024-12-06] MEDS: Thiamine HCL 100 MG TABLET PO (09:38)
[2024-12-06] MEDS: Lidocaine 4 % Patch ADH..PATCH 1 PATCH TRANSDERMA (09:38)
[2024-12-06] MEDS: Ferrous Sulfate 324 MG TABLET.DR PO (09:38)
--- NOTE | 2024-12-06 11:29 | PC.NURSE ---
Pt's belongings sent from ED to pt's room including $107 counted by staff in envelop and EBT card that pt was looking for. Belongings now currently at bedside.
--- NOTE | 2024-12-06 11:37 | HO.PM.IMPN ---
Subjective Subjective Date of Service: 12/06/24 Interval History: no rib pain minimizes EtOH intake Review of Systems Review of Systems: Yes all other systems are reviewed and are negative Physical Exam Vital Signs: Vital Signs: Last Vital Signs Temp 98.3 F 12/06/24 11:06 Pulse 76 12/06/24 11:06 Resp 20 12/06/24 11:06 BP 146/82 H 12/06/24 11:06 Pulse Ox 96 12/06/24 11:06 O2 Del Method Room Air 12/06/24 11:06 BMI result Body Mass Index 22.3 Gen: in no acute distress, disheveled HEENT: sclera anicteric, moist mucus membranes Neck: supple Lungs: clear to auscultation bilaterally Heart: regular rate and rhythm, no murmurs Abd: soft, non-tender, non-distended Ext: no edema Skin: warm/well-perfused, psoriatic plaques Neuro: alert and oriented x3, R hemiparesis, R arm contracted Psych: appropriate affect Objective Data Active Medications Acetaminophen (Acetaminophen 325 Mg Tablet) 975 mg PO Q6H PRN PRN Reason: Pain, Mild 1-3,fever,headache Calcium Carbonate (Calcium Carbonate 750 Mg Tab.Chew) 750 mg PO Q4H PRN PRN Reason: Heartburn Ceftriaxone Sodium (Ceftriaxone Sodium 1 Gm Vial) 1 gm IVPUSH Q24H [facility] Last Admin: 12/05/24 18:11 Dose: 1 gm Documented By: ELLEN Enoxaparin Sodium (Enoxaparin Sodium 40 Mg/0.4 Ml Syringe) 40 mg SUBCUT Q24H [facility] Last Admin: 12/06/24 02:11 Dose: 40 mg Documented By: CATA Ferrous Sulfate (Ferrous Sulfate 324 Mg Tablet.Dr) 324 mg PO DAILY [facility] Last Admin: 12/06/24 09:38 Dose: 324 mg Documented By: MELLY Lidocaine (Lidocaine 4 % Patch Adh..Patch) 1 patch TRANSDERMA DAILY [facility]; Protocol Last Admin: 12/06/24 09:38 Dose: 1 patch Documented By: MELLY Magnesium Hydroxide (Milk Of Magnesia 30 Ml Oral.Susp) 30 ml PO DAILY PRN PRN Reason: Constipation Melatonin (Melatonin 3 Mg Tablet) 6 mg PO BEDTIME PRN PRN Reason: Insomnia Last Admin: 12/06/24 02:13 Dose: 6 mg Documented By: CATA Ondansetron HCl (Ondansetron Hcl 4 Mg/2 Ml Vial) 4 mg IVPUSH Q8H PRN PRN Reason: Nausea and Vomiting Sodium Chloride (0.9 % Sodium Chloride Flush 3 Ml Syringe) 3 ml IVFLUSH QSHIFT [facility] Last Admin: 12/06/24 09:38 Dose: 3 ml Documented By: MELLY Thiamine HCl (Thiamine Hcl 100 Mg Tablet) 100 mg PO DAILY [facility] Last Admin: 12/06/24 09:38 Dose: 100 mg Documented By: MELLY Labs 12/05/24 07:06 12/05/24 07:06 Assessment and Plan (1) Alcohol use disorder: Status: Acute Plan d4 for 69yo M with HTN, prior CVA with R-sided weakness/RUE contracture, GERD, psoriasis, AUD found down on ground covered in urine and dirt, found to have 1st rib fx, UTI acute encephalopathy due to infection, sepsis due to UTI - resolved; BCx neg, UCx <10^5 cFU/ mL; continue ceftriaxone 12/03- and can change to cefuroxime upon discharge mild rhabdomyolysis - improved with IV fluids hyperthermia vs fever - could be from heat/impaired heat regulation due to EtOH vs sepsis, resolved JEROME, prerenal - resolved after IV fluid resuscitation acute 1st R rib fx - lidocaine patch though minimally symptomatic lactic acidosis - due to dehydration; resolved with IV fluids troponins indeterminate/flat - EKG unchanged from prior; denies chest pain; canceled TTE + Cardiology consult AUD - IV->PO thiamine, no signs of withdrawal, Addiction Med consulted but pt in denial VTE ppx - enoxaparin dispo - STR per PT consultation, MOCA per OT indicating moderate cognitive impairment In my clinical judgment, the patient requires continued inpatient hospitalization for the following reasons: placement Total time managing care of this patient today: 35 minutes. Quality Stroke Does the patient have a stroke diagnosis?: No VTE Prior VTE?: No VTE Risk Level:: Medical - moderate - high VTE Device Contraindication: Treatment Not Indicated VTE Drug Contraindication: N/A - Med Ordered
--- NOTE | 2024-12-06 11:47 | CA_ITS ---
Transthoracic Echocardiogram Patient (Last, First, Middle): Devonte Anguiano E Gender: Male Date of : 1955 Age: 69 Procedure Date: 12/06/2024 Procedure Type: Transthoracic Echocardiogram Location: [facility] [place] Height: 172.72 cm Weight: 66.23 kg BSA: 1.79 m2 Heart Rate: 77 bpm BP: 146 / 82 mmHg Document Manager: MAYLIN Referring MD: Gibson Solis MD Research And Development Technician: Caio Escalante MD Symptoms: NSVT Study Quality: Adequate/pt term exam ECG Rhythm: Sinus Conclusions: - 1. Technically limited study as patient terminated the exam prematurely before getting all data 2. LV function appears to be within normal limits with LV ejection fraction 55-60% with mild asymmetric septal hypertrophy with impaired relaxation filling pattern 3. Limited cardiac valvular Dopplers but within normal limits 4. Mildly dilated ascending aorta 3.9 cm Findings Procedure Information The quality of the study was technically difficult. Left Ventricle Normal left ventricular size, thickness, and systolic function. The visually estimated ejection fraction is between 55-60%. There is no evidence of regional wall motion abnormalities. Spectral Doppler is indicative of an impaired relaxation filling pattern. E/E prime ratio is between 8 and 15 consistent with indeterminate filling pressures. There is mild septal asymmetric hypertrophy. Right Ventricle Normal right ventricular cavity size. Atria The left atrium is normal in size. Interatrial shunt cannot be excluded. The right atrium was not well visualized. Aortic Valve Normal aortic valve structure and function. There is no aortic valve stenosis. There is no aortic valve regurgitation. Mitral Valve Likely normal mitral valve structure and function. There is no mitral valve regurgitation. There is no mitral valve stenosis. Pulmonic Valve The pulmonic valve was not well visualized. Tricuspid Valve Likely normal tricuspid valve structure and function. The right ventricular systolic pressure is not calculated. Great Vessels The aorta was not well visualized. The pulmonary artery was not well visualized. There is mild dilatation of the ascending aorta measuring 3.90 cm. Venous The inferior vena cava was not well visualized. Pericardium/Pleural The pericardium was not well visualized. Prior Study Comparison No prior study available for comparison. Measurements 2D Linear Measurements IVSd: 1.27 0.6-0.9/0.6-1.0 cm LVIDd: 4.70 3.9-5.3/4.2-5.9 cm LVIDd Index: 2.63 2.4-3.2/2.2-3.1 cm/m2 LVIDs: 3.11 2.0-3.6 cm LVPWd: 1.00 0.7-1.1 cm LA Diam: 4.30 2.7-3.8/3.0-4.0 cm LAIDs Index: 2.40 1.5-2.3 cm/m2 LV Mass: 244.18 67-162/88-224 g LV Mass Index: 136.41 43-95/49-115 g/m2 LVOT Diam: 2.20 3.0+(-)1.3 cm Mitral Valve MV Pk E: 0.66 MV PK A: 1.13 MV Decel Time: 192.00 E/A: 0.60 E'Lateral: 5.55 E'Medial: 5.66 E/E' Med: 11.70 E/E' Lat: 11.90 PHT: 56.00 MVA PHT: 3.93 Decel Nye: 3.45 LVOT LVOT Diam: 2.20 LVOT Area: 3.80 Diastolic Function MV Pk E: 0.66 MV Pk A: 1.13 E/A: 0.60 E'Medial: 5.66 E/E' Med: 11.70 E' Laterial: 5.55 E/E' Lat: 11.90 Right Ventricle TAPSE (mm): 26.70 TVS' Conrad: 19.90 Great Vessels Aorta Sinus of Valsalva: 3.72 2.0-3.5 cm Ao Asc: 3.90 2.1-3.4 cm Updated in Other Vendor System with Status of Final Caio Escalante MD electronically signed on 12/07/2024 12:56:05 PM with status of Final
[2024-12-06 12:37] LABS: Anion Gap 12 (12-20); Blood Urea Nitrogen 21 mg/dL (9-16); Calcium 8.7 mg/dL (8.4-10.2); Carbon Dioxide 25 mmol/L (22-29); Chloride 106 mmol/L (96-108); Creatinine Clr Calc Pharmacy 56.5; Estimated Glomerular Filt Rate > 60; Glucose Random 102 mg/dL (60-115); Magnesium 2.1 mg/dL (1.6-2.6); Potassium 3.7 mmol/L (3.3-5.1); Sodium 139 mmol/L (135-145)
--- NOTE | 2024-12-06 13:44 | MHC.CM.PN ---
CM MET WITH PT AND COUSIN/HCP, TO DISCUSS DCP THEY ARE AWARE STR IS RECOMMENDED, THEY REPORT [facility]ERR[facility]ATED
--- NOTE | 2024-12-06 14:56 | P.CDIM_ITS ---
PROVIDER RESPONSE TEXT: To clarify, the appropriate diagnosis supported by the clinical indicators: Acute QUERY TEXT: PHYSICIAN'S DOCUMENTATION REQUEST Date of Query: 12/06/2024 10:15 AM EDT Patient Name: Devonte Anguiano Admit Date: 12/03/2024 Dear Gibson Solis MD, A review of the medical record indicates additional documentation may be needed. Please review below and update the documentation accordingly. Clinical Indicators: Progress notes - Lactic acidosis due to dehydration; resolved with IV fluids. LA 2.9 H Clarify which of the following accurately represents the acuity of the Lactic acidosis: Possible options might include: Acute Chronic Other (explain) Clinically unable to determine (explain) Thank you, Joyce Young, CCS, CDIS Use of terms such as suspected, likely, concern for, or probable (associated with a specific diagnosi s that is being evaluated, monitored, or treated as if it exists) are acceptable and can be coded in the inpatient se tting, when documented at the time of discharge. Please use your independent medical judgment in providing your response. THIS QUERY IS PART OF THE PERMANENT MEDICAL RECORD
--- NOTE | 2024-12-06 15:41 | HO.WOUND ---
Wound Consult: Initial 69yr old?[place] [facility] [place] - See progress notes and H&P for detailed history.? Wound consult placed for Buttock and Right Hip.? Patient agreeable to assessment and photo documentation.? Patient is observed to have psoriasis - he has aphasia and is unable to tell me how he treats his psoriasis but denies pain, itching and tenderness. Psoriasis noted throughout. Sacrum / Buttock Etiology: ??Intact pink blanchable tissue Goals of Treatment: ? Preventative foam dressing and Q 2 hr turns. Midback Etiology: ??Unclear etiology: Hematoma vs Lipoma vs abscess will defer to provider assessment Wound Bed: raised dark red wel defined area with some soft flutuance noted with some pain noted on palpation Drainage / Odor: none Sary wound: intact No Induration, Fluctuance or Warmth noted Goals of Treatment: ? Foam dressing - defer to provider for assessment and evaluation Right Lateral Leg and Hip Psoriasis skin lesions - dry scaling flaking tissue - no open lesions noted no topical recommendations needed - recommend follow up outpt with Dermatology or patients provider that treats his Psoriasis. Recommendations: 1. Turn and Reposition every 2 hours and as needed for patient comfort.? Use pillows or wedges to support off loading positions. 2. Off Load all bony prominences with use of pillows and heel boots if needed.? Apply Preventative foams where needed. ? 3. Monitor for incontinence and moisture control, use barrier creams when needed for prevention and treatment. 4. Provide adequate and supplemental nutrition.? 5. Order or Continue low air loss mattress. 6. When applicable maintain blood glucose levels per Providers order. Sacrum - Off Load Pressure with Q2 hr turns and use of pillows - Routine cleansing.? Apply skin prep allow to dry.? Cover with foam dressing to aid in off loading and protection from friction. Change every 5 days and PRN. Midback - Off Load Pressure with Q2 hr turns and use of pillows - Routine cleansing.? Apply skin prep allow to dry.? Cover with foam dressing to aid in off loading and protection from friction. Change every 5 days and PRN. Re-consult wound care Nurse for wound deterioration or wound changes.
--- NOTE | 2024-12-06 17:05 | MHC.SL.SWA ---
Speech Pathologist Impression: Mild oropharyngeal dysphagia Risk of Aspiration Due to: Poor self-monitoring Dysphasia Diet Status: Liquid Consistency and Strategies for Safe Swallow: Liquid Intake Recommendation: Thin Liquid Intake Strategies: Solid Food Consistency: Dietary Recommendations: Regular Additional Modifications to Solid Foods: Oral Medication Intake: Whole with Liquid Please contact the pharmacy regarding appropriate crushable or liquid drug formulations that are available whenever modified delivery is recommended. Compensatory Strategies and Precautions to be Taken for Safe Swallow: Supervision While Eating and Drinking for Safe Swallow: Total Assistance (1:1) Foods to Avoid: Swallowing Recommended Treatments: Recommendation for Speech: Inpatient Speech Therapy Comment: Pt is edentulous and dentures no longer fit him. Pt c/o difficulty chewing solids, requesting downgraded diet. Pt able to formulate/manipulate bolus when eating kev cracker; though he was observed to take large bites initially. No overt s/s of aspiration observed with kev crackers. Pt tolerated sips of thins by cup and straw with efficient coordination; however, again, pt took large gulps occasionally. Recc regular diet/thin liquids to allow pt choices with least restrictive consistencies. [facility] to followup. Frequency/Duration: Daily as needed Date Range for Service Req: Timeline to reassess: Package Dyeing Machine Operator Clinican/Clinical Fellow: No Supervisory Statement: I have reviewed and agree with the student/clinical fellow's documentation: N/A Speech Language Pathologist: Matilde Marinelli M.S., [facility]
[2024-12-06] MEDS: cefTRIAXone sodium 1 GM VIAL IVPUSH (17:10)
[2024-12-07] VITALS: BP 165/81; PULSE 95; TEMP 36.6; O2SAT 96
[2024-12-07] MEDS: Enoxaparin Sodium 40 MG/0.4 ML SYRINGE SUBCUT (03:32)
[2024-12-07 07:08] VITALS: BP 160/92; PULSE 67; RESP 20; TEMP 36.6; O2SAT 95
[2024-12-07] MEDS: Ferrous Sulfate 324 MG TABLET.DR PO (09:22)
[2024-12-07] MEDS: Thiamine HCL 100 MG TABLET PO (09:22)
[2024-12-07] MEDS: Lidocaine 4 % Patch ADH..PATCH 1 PATCH TRANSDERMA (09:23)
[2024-12-07] MEDS: 0.9 % Sodium Chloride Flush 3 ML SYRINGE IVFLUSH (09:24)
[2024-12-07 11:02] VITALS: BP 138/77; PULSE 77; RESP 16; TEMP 36.6; O2SAT 96
--- NOTE | 2024-12-07 11:38 | MHC.CM.PN ---
Second IMM given 12/07. Pt is medically cleared for discharge to [facility] at [facility] [place] today via BLS/Trisha. Pt aware and in agreement with discharge plan.
--- NOTE | 2024-12-07 11:41 | PM.DS ---
DS: Providers Provider Date of Service: 12/07/24 Date of admission: 12/03/24 02:59 Date of discharge: 12/07/24 Primary care physician: BEATRIZ Torres Consults: 12/03/24 03:29 Addiction Medicine Provider Routine Consulting Provider: Addiction Covering Reason for consultation: etoh Has provider been notified: No 12/03/24 17:34 Consult to Wound Care Routine Reason for consultation: BLANCHABE REDNESS TO BUTTOCKS AND R HIP Has provider been notified: No DS: Diagnosis Discharge Diagnosis (1) Alcohol use disorder: Status: Acute (2) JEROME (acute kidney injury): Status: Acute (3) Acute UTI: Status: Acute (4) Sepsis: Status: Acute (5) Fracture of right first rib: Status: Acute (6) Rhabdomyolysis: Status: Acute (7) Unwitnessed fall: Status: Acute (8) Acute lactic acidosis: Status: Acute (9) Dehydration: Status: Acute (10) Encephalopathy due to infection: Status: Acute DS: Summary Hospital Course Hospital Course: From the history and physical by the admitting hospitalist, BEATRIZ Reyes, 12/03/24: 69-year-old male with a history of hypertension, 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 History limited as the patient is currently altered, only alert to self. Per ED note, Patient was found down on the ground of unclear duration of time. He is covered in urine and dirt. Workup in the ED included muniz scan with negative head CT, negative C-spine CT. Chest CT with 1st right rib nondisplaced fracture. Abdominopelvic CT without any acute findings. Patient was febrile when he arrived with JEROME and elevated CPK of 939. He was given fluid bolus and ceftriaxone. UA is positive for urinary tract infection. Troponin elevated at 35.8, 40.6 on repeat, EKG with abnormal T-waves in lateral leads. Patient is unable to provide any history at this time. 69yo M with HTN, prior CVA with R-sided weakness/RUE contracture, GERD, psoriasis, and AUD who was found down on ground covered in urine and dirt, found to have 1st rib fx and UTI. He was admitted to the hospitalist service. Hospital course by problem: acute encephalopathy due to infection, sepsis due to UTI - Mental status improved with treatment of infection. BCx neg, UCx <10^5 cFU/ mL. Treated with ceftriaxone 12/03-12/07 and discharged on 4 days of cefuroxime. mild rhabdomyolysis due to fall - Improved with IV fluid hydration hyperthermia vs fever - Could be from heat/impaired heat regulation due to EtOH vs sepsis; resolved. JEROME, prerenal - Resolved after IV fluid resuscitation. acute 1st R rib fx - Treated with acetaminophen and lidocaine patch, though he was minimally symptomatic. lactic acidosis - Was due to dehydration; resolved with IV fluids. troponins indeterminate/flat - EKG unchanged from prior; denied chest pain; canceled TTE + Cardiology consult. AUD - Treated with thiamine. No signs of withdrawal. Addiction Med consulted but pt denied that he had an alcohol problem. Negative BAL upon arrival. Phosphatidylethanol and vitamin B1 [thiamine] levels pending at the time of transfer to SNF. Recommended avoiding alcohol entirely. Due to impaired gait and balance, he was transferred to [facility] for short-term physical rehabilitation. Time Attestation Discharge Coordination Time (in mins): 45 Quality: Safe Use of Opioids Does Pt have an Active Cancer Diagnosis on the Problem List?: No Quality: Stroke Does the patient have a stroke diagnosis?: No Physical Exam Vital Signs: Vital Signs: Last Vital Signs Temp 97.9 F 12/07/24 11:02 Pulse 77 12/07/24 11:02 Resp 16 12/07/24 11:02 BP 138/77 12/07/24 11:02 Pulse Ox 96 12/07/24 11:02 O2 Del Method Room Air 12/07/24 11:02 BMI result Body Mass Index 22.3 Gen: in no acute distress, disheveled HEENT: sclera anicteric, moist mucus membranes Neck: supple Lungs: clear to auscultation bilaterally Heart: regular rate and rhythm, no murmurs Abd: soft, non-tender, non-distended Ext: no edema Skin: warm/well-perfused, psoriatic plaques Neuro: alert and oriented x3, R hemiparesis, R arm contracted Psych: appropriate affect DS: Data Data Completed and Pending Completed studies during hospitalization [Text1]: Laboratory Results WBC 6.5 X10*3/uL (4.8-10.8) 12/05/24 07:06 RBC 3.29 X10*6/uL (4.60-5.80) L 12/05/24 07:06 Hgb 10.2 g/dl (14.0-18.0) L 12/05/24 07:06 Hct 31.2 % (42.0-52.0) L 12/05/24 07:06 MCV 94.8 fL (80.0-98.0) 12/05/24 07:06 MCH 31.0 pg (27.0-33.0) 12/05/24 07:06 MCHC 32.7 g/dl (31.0-36.0) 12/05/24 07:06 RDW 13.3 % (11.0-16.0) 12/05/24 07:06 Plt Count 212 X10*3/uL (160-400) 12/05/24 07:06 MPV 10.9 fL (9.4-12.4) 12/05/24 07:06 Immature Gran % (Auto) 0.3 % (0.0-0.4) 12/05/24 07:06 Neut % (Auto) 66.4 % (45-73) 12/05/24 07:06 Lymph % (Auto) 21.6 % (20-40) 12/05/24 07:06 [place] % (Auto) 8.3 % (2-11) 12/05/24 07:06 Eos % (Auto) 2.2 % (0-4) 12/05/24 07:06 Baso % (Auto) 1.2 % (0-2) 12/05/24 07:06 Lymph # (Auto) 1.4 X10*3/uL (1.2-4.9) 12/05/24 07:06 [place] # (Auto) 0.5 X10*3/uL (0.1-1.2) 12/05/24 07:06 Eos # (Auto) 0.1 X10*3/uL (0.0-0.4) 12/05/24 07:06 Baso # (Auto) 0.1 X10*3/uL (0.0-0.2) 12/05/24 07:06 Abs Immat Gran (auto) 0.02 X10*3/uL (0.00-0.03) 12/05/24 07:06 Absolute Neuts (auto) 4.3 x10*3/uL (2.0-8.3) 12/05/24 07:06 Absolute Nucleated RBC 0.000 X10*3/uL (0.0-0.012) 12/05/24 07:06 Nucleated RBC % (auto) 0.0 /100WBC (0.0-0.2) 12/05/24 07:06 Hold Purple Top SEE NOTE 12/06/24 12:03 PT 12.6 SEC (10.9-12.4) H 12/02/24 17:58 INR 1.1 (0.9-1.1) 12/02/24 17:58 Sodium 139 mmol/L (135-145) 12/06/24 12:03 Potassium 3.7 mmol/L (3.3-5.1) 12/06/24 12:03 Chloride 106 mmol/L (96-108) 12/06/24 12:03 Carbon Dioxide 25 mmol/L (22-29) 12/06/24 12:03 Anion Gap 12 (12-20) 12/06/24 12:03 BUN 21 mg/dL (9-16) H 12/06/24 12:03 Creatinine 1.16 mg/dL (0.5-1.4) 12/06/24 12:03 Estim Creat Clear Calc 56.5 12/06/24 12:03 Estimated GFR > 60 12/06/24 12:03 Random Glucose 102 mg/dL (60-115) 12/06/24 12:03 Lactic Acid 2.9 mmol/L (0.5-2.0) H* 12/02/24 17:58 Lactic Acid F/U @ 2Hr 2.6 mmol/L (0.5-2.0) H* 12/02/24 20:16 Lactic Acid F/U @ 4Hr 0.9 mmol/L (0.5-2.0) 12/02/24 22:53 Calcium 8.7 mg/dL (8.4-10.2) 12/06/24 12:03 Magnesium 2.1 mg/dL (1.6-2.6) 12/06/24 12:03 Iron 36 mcg/dL (45-160) L 12/03/24 06:12 TIBC 227 mcg/dL (228-428) L 12/03/24 06:12 % Saturation 16 % (15-50) 12/03/24 06:12 Unsat Iron Binding 191 ug/dL 12/03/24 06:12 Total Bilirubin 0.6 mg/dL (0.0-1.0) 12/02/24 17:58 AST 46 U/L (5-37) H 12/02/24 17:58 ALT 32 U/L (0-40) 12/02/24 17:58 Alkaline Phosphatase 86 U/L (39-117) 12/02/24 17:58 Ammonia 36 umol/L (13-55) 12/02/24 17:58 Total Creatine Kinase 511 U/L (38-174) H 12/04/24 06:12 Troponin I High Sens 40.6 ng/L (<3.5-35.0) H 12/02/24 20:16 Total Protein 6.4 g/dL (6.5-8.0) L 12/02/24 17:58 Albumin 4.0 g/dL (3.5-5.0) 12/02/24 17:58 Vitamin B12 390 pg/mL (200-900) 12/03/24 10:23 Folate 16.1 ng/mL (> or = 4.0) 12/03/24 10:23 Urine Color Dark Yellow 12/02/24 20:43 Urine Appearance Clear 12/02/24 20:43 Urine pH 6.5 (5.0-9.0) 12/02/24 20:43 Ur Specific [place] 1.025 (1.005-1.025) 12/02/24 20:43 Urine Protein 100 (2+) mg/dL (Neg-Trace) H 12/02/24 20:43 Urine Glucose (UA) 250 mg/dL (Negative) H 12/02/24 20:43 Urine Ketones Negative mg/dL (Negative) 12/02/24 20:43 Urine Blood Small (1+) (Negative) H 12/02/24 20:43 Urine Nitrite Negative (Negative) 12/02/24 20:43 Ur Leukocyte Esterase Negative (Negative) 12/02/24 20:43 Urine RBC 3-5 /HPF (0-2) H 12/02/24 20:43 Urine WBC 6-10 /HPF (0-5) H 12/02/24 20:43 Ur Squamous Epith Cells 0-2 /HPF (0-2) 12/02/24 20:43 Urine Bacteria None Seen (None Seen) 12/02/24 20:43 Hyaline Casts 0-2 /LPF (0-2) 12/02/24 20:43 Urine Opiates Screen Not Detected (Not Detect) 12/02/24 20:43 Ur Buprenorphine Scrn Not Detected ng/mL (Not Detect) 12/02/24 20:43 Ur Oxycodone Screen Not Detected ng/mL (Not Detect) 12/02/24 20:43 Urine Methadone Screen Not Detected ng/mL (Not Detect) 12/02/24 20:43 Urine Fentanyl Screen Not Detected (Not Detect) 12/02/24 20:43 Ur Barbiturates Screen Not Detected (Not Detect) 12/02/24 20:43 Ur Phencyclidine Scrn Not Detected (Not Detect) 12/02/24 20:43 Ur Amphetamines Screen Not Detected (Not Detect) 12/02/24 20:43 U Benzodiazepines Scrn Not Detected (Not Detect) 12/02/24 20:43 Urine Cocaine Screen Not Detected (Not Detect) 12/02/24 20:43 U Marijuana (THC) Screen Not Detected (Not Detect) 12/02/24 20:43 Ethyl Alcohol < 10 mg/dL 12/02/24 17:58 Influenza Type A (PCR) NEGATIVE (Negative) 12/02/24 18:33 Influenza Type B (PCR) NEGATIVE (Negative) 12/02/24 18:33 RSV RNA Qual (PCR) NEGATIVE (Negative) 12/02/24 18:33 SARS-CoV-2 RNA (RT-PCR) NEGATIVE (Negative) 12/02/24 18:33 Discharge Plan Discharge Anticipated Discharge Date/Time: 12/07/24 15:37 Patient Disposition: er [facility] Discharge Diagnosis: sepsis due to UTI rib fracture due to fall iron deficiency anemia [facility] Week Surya Izquierdo PA-C [Physician Testing Projects Administrator] - 1 Week Physician,Darrel J [Primary Care Provider] - 1 Week Discharge Medications: New lidocaine [Lidocaine Pain Relief] 4 % Adhesive Patch,Medicated 1 patch transdermal DAILY Qty: 30 0RF Protocol: Apply to: Apply to: R 1st rib ferrous sulfate 324 mg (65 mg iron) Tablet,Delayed Release (Dr/Ec) 324 mg PO DAILY Qty: 30 0RF thiamine mononitrate (vit B1) 100 mg Tablet 100 mg PO DAILY Qty: 30 0RF cefuroxime axetil 500 mg tablet 500 mg PO BID Qty: 8 0RF Continued multivitamin [Daily Multi-Vitamin] Tablet 1 tab PO DAILY Qty: 30 0RF (DME) adult diapers See Rx Instructions .Route .MEDSUPPLY Qty: 180 11RF Rx Instructions: As directed docusate sodium [Colace] 100 mg capsule 100 mg PO DAILY PRN (Reason: constipation) Qty: 30 0RF amlodipine 10 mg tablet 10 mg PO DAILY 90 Days Qty: 90 0RF aspirin 81 mg tablet,delayed release (DR/EC) 81 mg PO DAILY 90 Days Qty: 90 3RF omeprazole 20 mg capsule,delayed release(DR/EC) 20 mg PO DAILY 90 Days Qty: 90 1RF triamcinolone acetonide 0.1 % cream 1 appl topical DAILY 15 Days Qty: 80 3RF Discontinued lisinopril 40 mg tablet 40 mg PO DAILY 90 Days Qty: 90 1RF hydralazine 100 mg tablet 100 mg PO BID 90 Days Qty: 180 1RF Discharge Orders: Discharge Order (Routine); Ordered 12/07/24 Ordered By: Gibson Solis Diet: Advance to usual diet Activity on Discharge: As tolerated Stand Alone Forms: Patient Portal Discharge page Print Language: Austrian Care Plan Goals: recovery from UTI/fall Health Concerns: sepsis due to UTI rib fracture due to fall iron deficiency anemia Plan of Treatment: take cefuroxime 500mg twice daily for 4 days pain control with lidocaine patch; acetaminophen [id number] take iron as prescribed stop lisinopril and hydralazine; may resume if needed to control in the future but for now, just take amlodipine 10 mg daily avoid alcohol intake take thiamine as prescribed Please follow up with your primary care doctor within 1 week of release from short-term rehabilitation. Return to the hospital if you experience recurrent or worsening symptoms. Assessment: See Discharge Summary.
--- NOTE | 2024-12-07 15:13 | MHC.SL.SWA ---
Dysphasia Diet Status: DOWNGRADE solids to NDD3 Liquid Consistency and Strategies for Safe Swallow: Liquid Intake Recommendation: Thin Solid Food Consistency: Dietary Recommendations: Chopped/Advanced (NDD3) Additional Modifications to Solid Foods: sauce/gravy Oral Medication Intake: Whole with Liquid Please contact the pharmacy regarding appropriate crushable or liquid drug formulations that are available whenever modified delivery is recommended. Compensatory Strategies and Precautions to be Taken for Safe Swallow: Sitting Upright (90 deg) Small Bites and Sips Alternate Liquids/Solids Rate of Ingestion Change Oral Check Avoid Specific Foods Supervision While Eating and Drinking for Safe Swallow: Direct Supervision (1:1) Recommendation for Speech: Inpatient Speech Therapy Comment: Recommend DOWNGRADE to CHOPPED/ADVANCED solids d/t severely prolonged mastication (>3 minutes for 1 bite) and spitting out foods. Recommend continue w/ thin liquids and pills whole w/ liquid. Recommend DIRECT SUPERVISION at this time to monitor toleration of diet and provide cues as needed. Recommend continued TECHNICAL PRODUCT MANAGER tx during hospitalization and following d/c at next level of care. Frequency/Duration: Daily as needed Hull Drafter Clinican/Clinical Fellow: No Supervisory Statement: I have reviewed and agree with the student/clinical fellow's documentation: N/A Speech Language Pathologist: Lynn Matthews M.A., CCC-TECHNICAL PRODUCT MANAGER
[2024-12-09 10:20] LABS: Phosphatidylethanol 16:0-18:1 NEGATIVE; Phosphatidylethanol 16:0-18:2 NEGATIVE
[2024-12-12 11:33] LABS: Vitamin B1 >1200 nmol/L (8-30)
== END 2024-12-07 15:23 | disposition skilled nursing facility (03) | DRG 871 ==
LOC: HO.ED 12-03 02:35 → HO.EDOVER 12-03 03:00 → HO.IMC 12-03 15:12
PROVIDERS: Physician Assistant Medical; Admitting Provider Physician Assistant; Emergency Provider Emergency Medicine Emergency Medical Services; PCP Family Medicine; Visit Provider Family Medicine
DX: A41.9 Sepsis, unspecified organism (principal); G93.41 Metabolic encephalopathy; I69.351 Hemiplegia and hemiparesis following cerebral infarction affecting right dominant side; E87.21 Acute metabolic acidosis; S22.31XA Fracture of one rib, right side, initial encounter for closed fracture; M62.82 Rhabdomyolysis; N39.0 Urinary tract infection, site not specified; N17.9 Acute kidney failure, unspecified; W19.XXXA Unspecified fall, initial encounter; D50.9 Iron deficiency anemia, unspecified; R13.10 Dysphagia, unspecified; M62.421 Contracture of muscle, right upper arm; F10.10 Alcohol abuse, uncomplicated; I69.398 Other sequelae of cerebral infarction; Z20.822 Contact with and (suspected) exposure to COVID-19; Z87.891 Personal history of nicotine dependence; Z79.82 Long term (current) use of aspirin; Z79.899 Other long term (current) drug therapy
CPT/HCPCS: 0241U; 36415; 70450; 71045; 71250; 72125; 74176; 80048; 80053; 80307; 80321; 81001; 82140; 82550; 82607; 82746; 83540; 83605; 83735; 84425; 84484; 85025; 85610; 87040; 87086; 92526; 92610; 93005; 93306; 97162; 97166; 99285; J0696; J1650; J3411; J7120; Q9957

== ENCOUNTER → 2024-12-02 18:23 | Outpatient (BNV) | payer MEDICARE, MEDICAID, SELFPAY | PROVIDERS: Visit Provider Radiology Diagnostic Radiology | DX: K40.90 Unilateral inguinal hernia, without obstruction or gangrene, not specified as recurrent (principal); S22.31XA Fracture of one rib, right side, initial encounter for closed fracture | CPT/HCPCS: 71250; 74176 ==

== ENCOUNTER → 2024-12-03 02:48 | Outpatient (BNV) | payer MEDICARE, MEDICAID, SELFPAY | PROVIDERS: Admitting Provider Physician Assistant; Emergency Provider Emergency Medicine Emergency Medical Services; Visit Provider Internal Medicine | DX: R00.1 Bradycardia, unspecified (principal) | CPT/HCPCS: 93010 ==

== ENCOUNTER 2024-12-03 02:59 | Outpatient (BNV) | payer MEDICARE, MEDICAID, SELFPAY | END 2024-12-06 11:47 | PROVIDERS: Admitting Provider Physician Assistant; Emergency Provider Emergency Medicine Emergency Medical Services; Visit Provider Internal Medicine Cardiovascular Disease | DX: I42.2 Other hypertrophic cardiomyopathy (principal); I47.10 Supraventricular tachycardia, unspecified | CPT/HCPCS: 93306 ==

== ENCOUNTER → 2024-12-03 02:59 | Outpatient (BNV) | payer MEDICARE, MEDICAID, SELFPAY | PROVIDERS: Admitting Provider Physician Assistant; Emergency Provider Emergency Medicine Emergency Medical Services; Visit Provider Family Medicine | DX: A41.9 Sepsis, unspecified organism (principal); N17.9 Acute kidney failure, unspecified; N39.0 Urinary tract infection, site not specified; F10.90 Alcohol use, unspecified, uncomplicated; S22.31XA Fracture of one rib, right side, initial encounter for closed fracture; M62.82 Rhabdomyolysis; R29.6 Repeated falls; E87.21 Acute metabolic acidosis; E86.0 Dehydration; G93.49 Other encephalopathy; B99.9 Unspecified infectious disease | CPT/HCPCS: 99223; 99232; 99239; 99499 ==

== ENCOUNTER → 2024-12-03 02:59 | Outpatient (BNV) | payer MEDICARE, MEDICAID, SELFPAY | PROVIDERS: Admitting Provider Physician Assistant; Emergency Provider Emergency Medicine Emergency Medical Services; Visit Provider Nurse Practitioner Psychiatric/Mental Health | DX: F10.90 Alcohol use, unspecified, uncomplicated (principal); N39.0 Urinary tract infection, site not specified | CPT/HCPCS: 99232 ==

== ENCOUNTER 2025-03-29 07:54 | Emergency (ER) | payer MEDICARE, MEDICAID, SELFPAY ==
[2025-03-29] VITALS (8 sets, daily range): BP systolic 138–188; BP diastolic 62–98; PULSE 58–90; RESP 16–22; TEMP 36.8–37.4; O2SAT 94–97; BMI 24.3
--- NOTE | ~2025-03-29 | CT_ITS ---
EXAMINATION: CT HEAD WITHOUT CONTRAST CLINICAL INFORMATION: Dizziness, weakness COMPARISON: December 02, 2024 TECHNIQUE: Contiguous axial imaging was performed from the skull base to vertex without intravenous administration of contrast. This CT examination was performed using dose optimization techniques as appropriate, variously including the following: *Automated exposure control *Adjustment of mA and/or kV according to patient size (this includes techniques or standardized protocols for targeted exams where dose is matched to indication/reason for exam; i.e. extremities or head) *Use of iterative reconstruction technique FINDINGS: There is no acute ischemic change. Again noted are changes from chronic left MCA territory infarct with encephalomalacia. There are periventricular hypodensities and bilateral thalamic hypodensities that are similar to the prior. There is no intracranial hemorrhage. There is no mass-effect or midline shift. Basal cisterns and ventricles are within normal limits for age/cerebral volume. Orbits are symmetrical and unremarkable. Paranasal sinuses and mastoid air cells are pneumatized. There are no bony abnormalities. CT/CT head/brain wo IV con IMPRESSION: No acute intracranial abnormality. Chronic left MCA territory infarct. Periventricular and bilateral thalamic hypodensities are chronic and probably related to small vessel disease. Electronically signed by: Nehemias Lewis MD 03/29/2025 11:11 AM EDT
--- NOTE | ~2025-03-29 | XR_ITS ---
EXAMINATION: XR HUMERUS, RIGHT CLINICAL INFORMATION: pain, unknown falls COMPARISON: None available. TECHNIQUE: AP and lateral views of the right humerus. FINDINGS: There is diffuse osteopenia. There is a transverse fracture across the surgical neck of the right humerus. The diaphysis is offset medially relative to the head by one half shaft width. There is likely extension into the lower half of the greater tuberosity. XR/XR humerus RT IMPRESSION: There is a fracture of the surgical neck of the right humerus with half shaft width medial offset. Fracture extends into the lower half of greater tuberosity. Osteopenia. Electronically signed by: Nehemias Lewis MD 03/29/2025 10:40 AM EDT
--- NOTE | ~2025-03-29 | XR_ITS ---
EXAMINATION: XR FOREARM, RIGHT CLINICAL INFORMATION: pain, unknown falls COMPARISON: None available. TECHNIQUE: Single lateral view of the right forearm is obtained. FINDINGS: No gross fracture or acute deformity. XR/XR forearm RT 2V IMPRESSION: Limited study. No gross fracture. Electronically signed by: Nehemias Lewis MD 03/29/2025 10:42 AM EDT
--- NOTE | ~2025-03-29 | XR_ITS ---
EXAMINATION: XR HAND, RIGHT CLINICAL INFORMATION: pain, unknown if fall COMPARISON: None available. TECHNIQUE: Single lateral view of the right hand. FINDINGS: There is diffuse osteopenia. The wrist and fingers are flexed limiting the study. There are degenerative changes in the DIP joint of the third digit with marginal osteophytes and joint space narrowing. There are also marginal osteophytes involving the carpus. XR/XR hand RT 2V IMPRESSION: Limited study. Osteopenia. No acute fracture. Osteoarthritis. Electronically signed by: Nehemias Lewis MD 03/29/2025 10:41 AM EDT
--- NOTE | ~2025-03-29 | XR_ITS ---
EXAMINATION: XR CHEST CLINICAL INFORMATION: chest pain, dyspnea COMPARISON: December 02, 2024 TECHNIQUE: 2 views of the chest were obtained. FINDINGS: The heart size is probably enlarged. There is linear density in the right lung base. There is a small focal rounded opacity in the left lung base. Lungs clear otherwise. Again seen is a fracture through the surgical neck of the right humerus. XR/XR chest 2V IMPRESSION: Borderline cardiomegaly There is a new rounded density in the left lung base that probably represents atelectasis. Early pneumonia is not ruled out. A pulmonary nodule or mass is less likely, follow-up chest x-ray upon resolution of symptoms to ensure resolution. Linear subsegmental atelectasis is present in the right lung base. There is a fracture of the surgical neck of the right humerus. Electronically signed by: Nehemias Lewis MD 03/29/2025 10:46 AM EDT
--- NOTE | 2025-03-29 08:45 | ECG_ITS ---
Test Reason : WEAKNESS Blood Pressure : */* mmHG Vent. Rate : 82 BPM Atrial Rate : 82 BPM P-R Int : 170 ms QRS Dur : 96 ms QT Int : 408 ms P-R-T Axes : 40 -31 68 degrees QTcB Int : 476 ms Sinus rhythm with frequent Premature ventricular complexes Possible Left atrial enlargement Left axis deviation Left ventricular hypertrophy with repolarization abnormality ( R in aVL , [place] product ) Abnormal ECG When compared with ECG of 03-Dec-2024 03:05, Significant changes have occurred Referred By: Gertrude Desai Electronically Signed By: LIANNE RECINOS
--- NOTE | 2025-03-29 08:45 | ED.GENADULT ---
HPI - General Adult General Chief complaint: Weakness Stated complaint: diff amb, weak,urine incont Time Seen by Provider: 03/29/25 08:44 Source: patient, EMS, RN notes reviewed and old records reviewed Mode of arrival: EMS Limitations: physical limitation History of Present Illness ED Provider: Lloyd HPI narrative: Patient is a 69-year-old male with history of CVA with subsequent R sided deficits, HTN, psoriasis, alcohol use disorder presenting to the ED with complaint of weakness and difficulty ambulating in and out of his second story apartment since returning home from rehab yesterday. States he has 15 stairs to get in or out of his house and has been trouble managing. Reports purchasing 4 nips of alcohol yesterday but states he only drank 2. Denies drug use. Denies falls but is questionable historian. Complaining of right arm pain but denies recent falls. Incontinent of urine prior to arrival. MD complaint: weakness Related Data Home Medications ?Medication ?Instructions ?Recorded ?Confirmed acetaminophen 500 mg tablet 1,000 mg PO TID PRN pain/fever 03/30/25 03/30/25 hydralazine 100 mg tablet 100 mg PO BID 03/30/25 03/30/25 lisinopril 40 mg tablet 40 mg PO DAILY 03/30/25 03/30/25 omeprazole 20 mg capsule,delayed 20 mg PO DAILY@0630 03/30/25 03/30/25 release triamcinolone acetonide 0.1 % 1 appl topical DAILY PRN Dry/Itchy 03/30/25 03/30/25 topical cream Skin Previous Rx's ?Medication ?Instructions ?Recorded multivitamin (Daily Multi-Vitamin 1 tab PO DAILY #30 tabs 03/14/23 tablet) adult diapers #180 ea 03/24/23 aspirin 81 mg tablet,delayed 81 mg PO DAILY 90 days #90 tabs 06/19/23 release amlodipine 10 mg tablet 10 mg PO DAILY 90 days #90 tabs 11/17/24 ferrous sulfate 324 mg (65 mg 324 mg PO DAILY #30 tabs 12/07/24 iron) tablet,delayed release lidocaine 4 % topical patch 1 patch transdermal DAILY #30 ea 12/07/24 (Lidocaine Pain Relief) thiamine mononitrate (vit B1) 100 100 mg PO DAILY #30 tabs 12/07/24 mg tablet oxycodone 5 mg tablet 5 mg PO Q8H PRN pain (scale score 03/30/25 7-10) 3 days #9 tabs Allergies Allergy/AdvReac Type Severity Reaction Status Date / Time No Known Allergies Allergy Verified 03/29/25 08:22 Review of Systems Review of Systems: As per hPI Yes all other systems are reviewed and are negative Constitutional: Constitutional: Reports as per HPI [facility] Past Medical History Medical History Stroke Hypertension Psoriasis Surgical History History of inguinal hernia repair Family History Family History Father Cancer Mother Lung cancer Social History Social History Household Members: None Housing: House Do you presently have visiting nurse or other home services: Yes (pt reported [employer] is not coming to take care of him) Alcohol intake: current Alcohol intake frequency: 0-2 drinks per day Alcohol type: beer Patient Tobacco Use Status: Former Tobacco user Tobacco use type: Cigarette Cigarettes Per Day: 3 Smoked in Last 30 Days: No Use of substances other than those prescribed or required for medical reasons: No Advance Directives: Yes Advance Directives on File: Yes Advance Directives Date on File: 02/21/23 Do you have a plan to hurt others: No Plan service: No Cognitive needs: Yes Hearing needs: No Vision needs: Yes Physical Exam ED Vital Signs: Vital Signs - 24 hr 03/29/25 18:48 03/29/25 22:00 03/29/25 23:12 Temperature 99.3 F Pulse Rate 62 60 58 Respiratory Rate 16 17 Blood Pressure 161/98 H 188/78 H 138/62 Pulse Oximetry 96 97 Oxygen Delivery Method Room Air Room Air 03/30/25 06:29 03/30/25 07:30 03/30/25 10:00 Temperature 98.3 F 98.9 F 99.4 F Pulse Rate 48 L 53 78 Respiratory Rate 18 18 Blood Pressure 128/62 146/76 H 159/79 H Pulse Oximetry 95 97 96 Oxygen Delivery Method Room Air Room Air Room Air 03/30/25 12:00 03/30/25 12:20 03/30/25 12:20 Temperature 99.0 F Pulse Rate 89 Respiratory Rate 18 Blood Pressure 140/70 H 140/70 H 140/70 H Pulse Oximetry 96 Oxygen Delivery Method Room Air 03/30/25 12:20 03/30/25 14:00 Temperature 98.4 F Pulse Rate 55 Respiratory Rate 18 Blood Pressure 140/70 H 116/59 L Pulse Oximetry 97 Oxygen Delivery Method Room Air BMI result Body Mass Index 24.3 Vital signs have been reviewed and appear to be correct. Blood pressure elevated. Heart rate normal. Respiratory rate normal. Temperature normal. Oxygen saturation normal. Const General: cooperative, no acute distress and poor hygiene Orientation/consciousness: oriented to person, oriented to place, oriented to time and patient oriented x3 Limitations: physical limitations HENMT Head: Yes normocephalic and Yes atraumatic Ears: external ears normal General nose exam: Normal external nose present Face and sinus: Yes face symmetric Mouth: oropharynx normal and moist mucous membranes Throat: Yes uvula midline Eyes Pupils: Equal, round and reactive pupils present Neck Neck: Yes normal visual inspection and Yes supple Resp Effort & Inspection: normal respiratory effort and able to speak in complete sentences Auscultation: clear to auscultation bilaterally Cardio Rate: regular rate Rhythm: regular rhythm Heart sounds: S1 normal heart sound present and S2 normal heart sound present GI Palpation (GI): Soft to palpation and nontender Auscultation: normoactive bowel sounds General: Yes no CVA tenderness and Yes other (incontinent of urine prior to arrival to the ED) Back/Spine/Pelvis Back: no CVA tenderness Skin Other: scaly patches to bilateral arms General skin exam: elasticity normal and turgor normal Neuro General: oriented to person, oriented to place, oriented to time, patient oriented x3, moves all extremities, no focal motor deficits and CN's II-XI intact bilaterally Cranial nerves: Yes Equal, round and reactive pupils present Cognition (Neuro): normal cognition Extrem General: Yes full ROM, Yes no pedal edema and Yes no calf tenderness Right upper extremity: shoulder/upper arm Details: normal to inspection and tenderness Location: of the mid-shaft humerus, elbow/forearm (baseline contracture), wrist (baseline contracture) Details: tenderness and Extremity exam: right hand (baseline contracture) Details: no tenderness Psych Mental Status: mental status grossly normal Affect: normal affect Thought process: Normal thought process present Course Course Course Narrative: Time: 08:39 Date: 03/30/25 Provider: BEATRIZ Davis Patient in physician observation for case management needs. No acute events reported overnight.? No current issues or complaints. VS stable. Patient is pending PT/CM eval. Will continue to monitor. Time: 17:47 Date: 03/30/25 Provider: BEATRIZ Davis Physician observation ended at 1747. Per CM, patient will be discharged to [facility] for [facility]. ortho referral provided. advised to f/u. printed rx of oxycodone provided. Medications Administered Generic Name Dose Route Start Last Admin Trade Name Freq PRN Reason Stop Dose Admin Amlodipine Besylate 10 mg 03/30/25 11:45 03/30/25 12:20 Amlodipine Besylate 10 Mg Tablet PO 10 mg DAILY HEYDI Administration Protocol Aspirin 81 mg 03/30/25 11:45 03/30/25 12:19 Aspirin Enteric Coated 81 Mg Tablet. PO 81 mg DAILY HEYDI Administration Ferrous Sulfate 324 mg 03/30/25 11:45 03/30/25 12:20 Ferrous Sulfate 324 Mg Tablet. PO 324 mg DAILY HEYDI Administration Hydralazine HCl 100 mg 03/30/25 11:45 03/30/25 12:20 Hydralazine Hcl 50 Mg Tablet PO 100 mg BID HEYDI Administration Protocol Lidocaine 1 patch 03/30/25 11:45 03/30/25 12:20 Lidocaine 4 % Patch Adh..Patch TRANSDERMA 1 patch DAILY HEYDI Administration Protocol Lisinopril 40 mg 03/30/25 11:45 03/30/25 12:20 Lisinopril 40 Mg Tablet PO 40 mg DAILY HEYDI Administration Protocol Omeprazole 20 mg 03/30/25 11:45 03/30/25 12:12 Omeprazole 20 Mg Capsule. PO 20 mg DAILY@0630 HEYDI Administration Oxycodone HCl 5 mg 03/29/25 14:16 03/30/25 12:12 Oxycodone Hcl Immed Release 5 Mg Tablet PO 5 mg Q6H PRN Administration severe pain Thiamine HCl 100 mg 03/30/25 11:45 03/30/25 12:19 Thiamine Hcl 100 Mg Tablet PO 100 mg DAILY HEYDI Administration Discontinued Medications Generic Name Dose Route Start Last Admin Trade Name Freq PRN Reason Stop Dose Admin Potassium Chloride 40 meq 03/29/25 11:24 03/29/25 11:43 Potassium Chloride Packet 20 Meq Packet PO 03/29/25 11:25 40 meq ONCE ONE Administration Medical Decision Making Medical Decision Making [facility] Narrative: Patient is a 69-year-old male with history of CVA with subsequent R sided deficits, HTN, psoriasis, alcohol use disorder presenting to the ED with complaint of weakness and difficulty ambulating in and out of his second story apartment since returning home from rehab yesterday. On exam patient is awake, A+Ox3, VS WNL, afebrile, physical exam findings as above. Given reported symptoms and physical exam findings, initial differential includes but is not limited to viral illness, electrolyte abnormality, drug or alcohol intoxication, contusion vs frature right arm, ICH, skull fracture. Labs notable for hypokalemia, mildly elevated troponin. PO potassium ordered. X-ray chest notable for rounded density to L lung base, likely atelectasis. Humerus x-ray notable for neck fracture with offset. Sling applied. Case discussed with Radha from ortho. No acute fractures noted to forearm or hand. CT head without evidence of acute ICH or skull fracture. My interpretation is in agreement with the radiologist's interpretation. No delta on repeat troponin. Will place patient on physician observation for PT/CM eval at this time. PRN oxycodone for pain ordered. Differential Diagnosis Differential Diagnoses: The differential diagnosis associated with the presentation includes as per [facility] Admission/Observation Consideration of admission/observation: Escalation of care including admission/observation considered Patient would have been admitted to the hospital and transferred to appropriate facility had their clinical presentation warranted hospital admission. Lab Data [facility] Lab Attestation statement: I reviewed the patient's lab results. as per [facility] 03/29/25 10:04 03/29/25 15:13 Labs: Lab Results 03/29/25 03/29/25 03/29/25 Range/Units 10:04 12:19 15:13 WBC 11.4 H (4.8-10.8) X10*3/uL RBC 4.33 L D (4.60-5.80) X10*6/uL Hgb 13.8 L D (14.0-18.0) g/dl Hct 38.3 L D (42.0-52.0) % MCV 88.5 (80.0-98.0) fL MCH 31.9 (27.0-33.0) pg MCHC 36.0 (31.0-36.0) g/dl RDW 13.4 (11.0-16.0) % Plt Count 245 (160-400) X10*3/uL MPV 10.7 (9.4-12.4) fL Immature Gran % (Auto) 0.3 (0.0-0.4) % Neut % (Auto) 83.2 H (45-73) % Lymph % (Auto) 6.3 L (20-40) % [place] % (Auto) 9.9 (2-11) % Eos % (Auto) 0.0 (0-4) % Baso % (Auto) 0.3 (0-2) % Lymph # (Auto) 0.7 L (1.2-4.9) X10*3/uL [place] # (Auto) 1.1 (0.1-1.2) X10*3/uL Eos # (Auto) 0.0 (0.0-0.4) X10*3/uL Baso # (Auto) 0.0 (0.0-0.2) X10*3/uL Abs Immat Gran (auto) 0.04 H (0.00-0.03) X10*3/uL Absolute Neuts (auto) 9.5 H (2.0-8.3) x10*3/uL Absolute Nucleated RBC 0.000 (0.0-0.012) X10*3/uL Nucleated RBC % (auto) 0.0 (0.0-0.2) /100WBC PT 11.8 (10.9-12.4) SEC INR 1.0 (0.9-1.1) Sodium 141 142 (135-145) mmol/L Potassium 3.0 L 3.5 (3.3-5.1) mmol/L Chloride 105 106 (96-108) mmol/L Carbon Dioxide 27 28 (22-29) mmol/L Anion Gap 12 12 (12-20) BUN 29 H 26 H (9-16) mg/dL Creatinine 1.05 0.95 (0.5-1.4) mg/dL Estim Creat Clear Calc 64.2 71.0 Estimated GFR > 60 > 60 Random Glucose 150 H 108 (60-115) mg/dL Calcium 9.2 9.0 (8.4-10.2) mg/dL Magnesium 2.2 (1.6-2.6) mg/dL Total Bilirubin 0.8 (0.0-1.0) mg/dL AST 28 (5-37) U/L ALT 23 (0-40) U/L Alkaline Phosphatase 67 (39-117) U/L Troponin I High Sens 21.0 25.9 (<3.5-35.0) ng/L Total Protein 7.2 (6.5-8.0) g/dL Albumin 4.6 (3.5-5.0) g/dL Lipase 26 (8-78) U/L Urine Color Urine Appearance Urine pH (5.0-9.0) Ur Specific [place] (1.005-1.025) Urine Protein (Neg-Trace) mg/dL Urine Glucose (UA) (Negative) mg/dL Urine Ketones (Negative) mg/dL Urine Blood (Negative) Urine Nitrite (Negative) Ur Leukocyte Esterase (Negative) Urine Opiates Screen (Not Detect) Ur Buprenorphine Scrn (Not Detect) ng/mL Ur Oxycodone Screen (Not Detect) ng/mL Urine Methadone Screen (Not Detect) ng/mL Urine Fentanyl Screen (Not Detect) Ur Barbiturates Screen (Not Detect) Ur Phencyclidine Scrn (Not Detect) Ur Amphetamines Screen (Not Detect) U Benzodiazepines Scrn (Not Detect) Urine Cocaine Screen (Not Detect) U Marijuana (THC) Screen (Not Detect) Ethyl Alcohol < 10 mg/dL COVID-19 (RIVAS) Negative (Negative) COVID-19 Clin Com See Note Influenza Type A (YVONNE) Negative (Negative) Influenza Type B (YVONNE) Negative (Negative) Influenza A & B Note See Note 03/29/25 Range/Units 18:40 WBC (4.8-10.8) X10*3/uL RBC (4.60-5.80) X10*6/uL Hgb (14.0-18.0) g/dl Hct (42.0-52.0) % MCV (80.0-98.0) fL MCH (27.0-33.0) pg MCHC (31.0-36.0) g/dl RDW (11.0-16.0) % Plt Count (160-400) X10*3/uL MPV (9.4-12.4) fL Immature Gran % (Auto) (0.0-0.4) % Neut % (Auto) (45-73) % Lymph % (Auto) (20-40) % [place] % (Auto) (2-11) % Eos % (Auto) (0-4) % Baso % (Auto) (0-2) % Lymph # (Auto) (1.2-4.9) X10*3/uL [place] # (Auto) (0.1-1.2) X10*3/uL Eos # (Auto) (0.0-0.4) X10*3/uL Baso # (Auto) (0.0-0.2) X10*3/uL Abs Immat Gran (auto) (0.00-0.03) X10*3/uL Absolute Neuts (auto) (2.0-8.3) x10*3/uL Absolute Nucleated RBC (0.0-0.012) X10*3/uL Nucleated RBC % (auto) (0.0-0.2) /100WBC PT (10.9-12.4) SEC INR (0.9-1.1) Sodium (135-145) mmol/L Potassium (3.3-5.1) mmol/L Chloride (96-108) mmol/L Carbon Dioxide (22-29) mmol/L Anion Gap (12-20) BUN (9-16) mg/dL Creatinine (0.5-1.4) mg/dL Estim Creat Clear Calc Estimated GFR Random Glucose (60-115) mg/dL Calcium (8.4-10.2) mg/dL Magnesium (1.6-2.6) mg/dL Total Bilirubin (0.0-1.0) mg/dL AST (5-37) U/L ALT (0-40) U/L Alkaline Phosphatase (39-117) U/L Troponin I High Sens (<3.5-35.0) ng/L Total Protein (6.5-8.0) g/dL Albumin (3.5-5.0) g/dL Lipase (8-78) U/L Urine Color Yellow Urine Appearance Cloudy Urine pH 7.0 (5.0-9.0) Ur Specific [place] 1.015 (1.005-1.025) Urine Protein Trace (Neg-Trace) mg/dL Urine Glucose (UA) 250 H (Negative) mg/dL Urine Ketones Negative (Negative) mg/dL Urine Blood Negative (Negative) Urine Nitrite Negative (Negative) Ur Leukocyte Esterase Negative (Negative) Urine Opiates Screen Not Detected (Not Detect) Ur Buprenorphine Scrn Not Detected (Not Detect) ng/mL Ur Oxycodone Screen Not Detected (Not Detect) ng/mL Urine Methadone Screen Not Detected (Not Detect) ng/mL Urine Fentanyl Screen Not Detected (Not Detect) Ur Barbiturates Screen Not Detected (Not Detect) Ur Phencyclidine Scrn Not Detected (Not Detect) Ur Amphetamines Screen Not Detected (Not Detect) U Benzodiazepines Scrn Not Detected (Not Detect) Urine Cocaine Screen Not Detected (Not Detect) U Marijuana (THC) Screen Not Detected (Not Detect) Ethyl Alcohol mg/dL COVID-19 (RIVAS) (Negative) COVID-19 Clin Com Influenza Type A (YVONNE) (Negative) Influenza Type B (YVONNE) (Negative) Influenza A & B Note Independent Interpretation I performed an independent interpretation of an: EKG, Plain X-Ray and CT Scan Interpretation: X-ray chest notable for rounded density to L lung base, likely atelectasis. Humerus x-ray notable for neck fracture with offset. Sling applied. No acute fractures noted to forearm or hand. CT head without evidence of acute ICH or skull fracture. Radiology Impression Discussion of test interpretation with radiology: I have reviewed the radiologist's reading. Radiologist Impression: XR/XR chest 2V IMPRESSION: Borderline cardiomegaly There is a new rounded density in the left lung base that probably represents atelectasis. Early pneumonia is not ruled out. A pulmonary nodule or mass is less likely, follow-up chest x-ray upon resolution of symptoms to ensure resolution. Linear subsegmental atelectasis is present in the right lung base. There is a fracture of the surgical neck of the right humerus. XR/XR humerus RT IMPRESSION: There is a fracture of the surgical neck of the right humerus with half shaft width medial offset. Fracture extends into the lower half of greater tuberosity. XR/XR forearm RT 2V IMPRESSION: Limited study. No gross fracture. XR/XR hand RT 2V IMPRESSION: Limited study. Osteopenia. No acute fracture. Osteoarthritis. CT/CT head/brain wo IV con IMPRESSION: No acute intracranial abnormality. Chronic left MCA territory infarct. Periventricular and bilateral thalamic hypodensities are chronic and probably related to small vessel disease. External Record Review External record reviewed: Inpatient record, Office record and Outpatient record Discharge Plan Discharge Clinical Impression: Hypokalemia Closed right humeral fracture Qualifiers: Encounter type: initial encounter Humerus Location: surgical neck Patient Disposition: Xfer Inpatient Rehab Fac Transfer Details: [facility] Instructions: Arm Fracture in Adults (ED), Hypokalemia (ED) Additional Instructions: Your blood work showed low levels of potassium. You were given repletion in ED. Your blood work is otherwise reassuring. You have a humeral neck fracture. You were placed in a sling. You need to follow up with ortho outpatietn. Call them to establish care, they will not call you. You were evaluated by physical therapy and are being discharged to [facility] for rehab. A prescription for oxycodone has been provided for you to take as needed for breakthrough pain. Return with any new/worsening symptoms. In the case of an emergency call 911. Prescriptions: New oxycodone 5 mg tablet 5 mg PO Q8H PRN (Reason: pain (scale score 7-10)) 3 Days Qty: 9 0RF Rx Instructions: Partial Fill upon patient request. No Action multivitamin [Daily Multi-Vitamin] Tablet 1 tab PO DAILY Qty: 30 0RF (DME) adult diapers See Rx Instructions .Route .MEDSUPPLY Qty: 180 11RF Rx Instructions: As directed amlodipine 10 mg tablet 10 mg PO DAILY 90 Days Qty: 90 0RF lidocaine [Lidocaine Pain Relief] 4 % Adhesive Patch,Medicated 1 patch transdermal DAILY Qty: 30 0RF Protocol: Apply to: Apply to: R 1st rib ferrous sulfate 324 mg (65 mg iron) Tablet,Delayed Release (Dr/Ec) 324 mg PO DAILY Qty: 30 0RF thiamine mononitrate (vit B1) 100 mg Tablet 100 mg PO DAILY Qty: 30 0RF acetaminophen 500 mg Tablet 1,000 mg PO TID PRN (Reason: pain/fever) hydralazine 100 mg Tablet 100 mg PO BID lisinopril 40 mg Tablet 40 mg PO DAILY omeprazole 20 mg capsule,delayed release(DR/EC) 20 mg PO DAILY@0630 triamcinolone acetonide 0.1 % cream 1 appl topical DAILY PRN (Reason: Dry/Itchy Skin) aspirin 81 mg tablet,delayed release (DR/EC) 81 mg PO DAILY 90 Days Qty: 90 3RF Referrals: [facility] [Provider Group] Clinical Impression: Closed right [facility] Surya Izquierdo PA-C [Primary Care Provider, Internal Medicine] Print Language: Maltese
--- OUTSIDE RECORDS SUMMARY | 2025-03-29 09:09 | XMS_ITS ---
Author Organization [facility] Care Team Providers Care Motorized Squad Captain Name Role Phone Rowan Liang Unavailable Allergies and adverse reactions No Known Allergies Care Team Name Role Address Phone Organization Dates Rowan Liang PCP [address] [place] [address], [id number], [place] States (Office): : [facility] 02/21/2023 - 03/10/2023 Medications Section Medication Name Status Code CodeSystem Dose Route Frequency Admin Type Sig Text Start Date End Date Indication Azo Tabs Oral Tablet active 1 table t Oral one time a day Routin e Give 1 table t by mouth one time a day for urina ry suppl ent 2022 - urinary supplement Tadalafil Oral Tablet 2.5 MG active 36231 7 RXNORM 1 table t Oral one time a day Routin e Give 1 table t by mouth one time a day for suppl ement 2022 - supplement amLODIPine Besylate Oral Tablet 10 MG active 45065 5 RXNORM 1 table t Oral one time a day Routin e Give 1 table t by mouth one time a day for htn 2022 - htn Multivitami n Oral Tablet active 1 table t Oral one time a day Routin e Give 1 table t by mouth one time a day for suppl ent 2022 - supplement Lisinopril Oral Tablet 40 MG active 12891 4 RXNORM 1 table t Oral one time a day Routin e Give 1 table t by mouth one time a day for htn 2022 - htn MegaRed Star-3 Krill Oil Oral Capsule 350 MG active 1 capsu le Oral one time a day Routin e Give 1 capsu le by mouth one time a day for suppl ement 2022 - supplement Omeprazole Oral Tablet Delayed Release 20 MG active 75393 4 RXNORM 20 mg Oral one time a day Routin e Give 20 mg by mouth one time a day for gerd 2022 - gerd hydrALAZINE HCl Oral Tablet 100 MG active 21530 2 RXNORM 1 table t Oral two times a day Routin e Give 1 table t by mouth two times a day for htn 2022 - htn Aspirin Oral Capsule 81 MG active 65758 7 RXNORM 81 mg Oral one time a day Routin e Give 81 mg by mouth one time a day for cardi ac suppl ement 2022 - cardiac supplement Acetaminoph en Tablet 325 MG active 30467 2 RXNORM 2 table t Oral as needed PRN Give 2 table t by mouth every 6 hours as neede d for Pain Pain Total dosag e for aceta minop hen and medic ation s that conta in aceta minop hen shoul d not excee d 3 grams / 24 hours . AND Give 2 table t by mouth every 6 hours as neede d for Fever great er than 100.0 F Total dosag e for aceta minop hen and medic ation s that conta in aceta minop hen shoul d not excee d 3 grams / 24 hours . 2022 - Pain 88441 2 RXNORM 2 table t Oral as needed PRN Give 2 table t by mouth every 6 hours as neede d for Pain Pain Total dosag e for aceta minop hen and medic ation s that conta in aceta minop hen shoul d not excee d 3 grams / 24 hours . AND Give 2 table t by mouth every 6 hours as neede d for Fever great er than 100.0 F Total dosag e for aceta minop hen and medic ation s that conta in aceta minop hen shoul d not excee d 3 grams / 24 hours . 2022 - Fever greater than 100.0F Triamcinolo ne Acetonide External Cream 0.1 % active 14849 14 RXNORM n/a n/a Topica l one time a day Routin e Apply to bilat eral lower extre miti topic ally one time a day for psora addison 2022 - psoraisis Mental Status Section Date Assessment Total Score Description 03/10/2023 BIMS 15 cognitively int act CAM 2 Delirium indica venu PHQ-9 04 minimal depress ion 02/26/2023 BIMS 11 moderate cognit elizabeth impairment CAM 0 No delirium ind icated PHQ-9 04 minimal depress ion Problems Problem # Description Date of onset Resolved Date Code CodeSystem Concern Status 1 DYSARTHRIA AND ANARTHRIA 02/27/[address] active 2 OTHER LACK OF COORDINATION 02/25/[address] active 3 UNSPECIFIED LACK OF COORDINATION 02/24/[address] active 4 ACUTE KIDNEY FAILURE, UNSPECIFIED 02/22/[address] active 5 CEREBRAL INFARCTION, UNSPECIFIED 02/22/[address] active 6 CONTRACTURE, RIGHT HAND 02/22/[address] active 7 DEHYDRATION 02/22/[address] active 8 DIARRHEA, UNSPECIFIED 02/22/[address] active 9 DYSARTHRIA FOLLOWING CEREBRAL INFARCTION 02/22/[address] active 10 ENCEPHALOPATHY, UNSPECIFIED 02/22/[address] active 11 ESSENTIAL (PRIMARY) HYPERTENSION 02/22/[address] active 12 GASTRO-ESOPHAGEAL REFLUX DISEASE WITHOUT ESOPHAGITIS 02/22/[address] active 13 OTHER MALAISE 02/22/[address] active 14 OTHER SYMPTOMS AND SIGNS INVOLVING THE MUSCULOSKELETAL SYSTEM 02/22/[address] active 15 PSORIASIS, UNSPECIFIED 02/22/[address] active Reason for Referral No Reasons for Referral Entered Social History Social History Observation Description Start Date End Date Code Code System Current Smoking Status Tobacco smoking consumption unknown 773889959 SNOMED CT Sex Assigned At Male 1955 71801-1 [facility] Gender Identity Sexual Orientation Vital Signs Code Code System Vitals Name Values and Units Timing Information 57762-0 [facility] Pain Level Value=0.0 03/10/2023 9279-1 [facility] Respiratory Rate Value=18.0 Units=/m in 02/24/2023 8462-4 [facility] Blood Pressure-Diastolic Value=72 Un its=mmHg 02/24/2023 8480-6 [facility] Blood Pressure-Systolic Giybt=784 Un its=mmHg 02/24/2023 8310-5 [facility] Body Temperature Value=97.2 Units= F 02/24/2023 8867-4 [facility] Heart rate Value=72.0 Units=/min 56985-4 [facility] O2 % BldC Oximetry Value=96.0 Units= % 02/24/2023 8302-2 [facility] Height Value=68.0 Units=Inches 02/22/2023
[2025-03-29 10:09] LABS: MANUAL DIFF FLAG NO
[2025-03-29 10:13] LABS: Hematocrit 38.3 % (42.0-52.0); Hemoglobin 13.8 g/dl (14.0-18.0); Imm Gran Abs Auto 0.04 X10*3/uL (0.00-0.03); Imm Gran Pct Auto 0.3 % (0.0-0.4); Lymphocytes Absolute Auto 0.7 X10*3/uL (1.2-4.9); Mean Corpuscular HGB Conc 36.0 g/dl (31.0-36.0); Mean Corpuscular Hemoglobin 31.9 pg (27.0-33.0); Mean Corpuscular Volume 88.5 fL (80.0-98.0); NRBC Abs Auto 0.000 X10*3/uL (0.0-0.012); NRBC Pct Auto 0.0 /100WBC (0.0-0.2); Platelet Count 245 X10*3/uL (160-400); Red Blood Count 4.33 X10*6/uL (4.60-5.80); White Blood Count 11.4 X10*3/uL (4.8-10.8)
[2025-03-29 10:18] LABS: INTERNATIONAL NORM RATIO 1.0 (0.9-1.1); Prothrombin Time 11.8 SEC (10.9-12.4)
[2025-03-29 10:29] LABS: Alanine Aminotransferase 23 U/L (0-40); Albumin Level 4.6 g/dL (3.5-5.0); Alkaline Phosphatase 67 U/L (39-117); Anion Gap 12 (12-20); Aspartate Amino Transferase 28 U/L (5-37); Blood Urea Nitrogen 29 mg/dL (9-16); Calcium 9.2 mg/dL (8.4-10.2); Carbon Dioxide 27 mmol/L (22-29); Chloride 105 mmol/L (96-108); Creatinine Clr Calc Pharmacy 64.2; Estimated Glomerular Filt Rate > 60; Lipase 26 U/L (8-78); Magnesium 2.2 mg/dL (1.6-2.6); Potassium 3.0 mmol/L (3.3-5.1); Sodium 141 mmol/L (135-145); Total Protein 7.2 g/dL (6.5-8.0)
[2025-03-29 10:36] LABS: Troponin-I High Sensitivity 21.0 ng/L (<3.5-35.0)
[2025-03-29 10:41] LABS: COVID-19 Test Negative (Negative); IDNOW Serial# 08D9AD1C; IDNOW Serial# 58CA691E; Influenza B2 Negative (Negative)
--- NOTE | 2025-03-29 10:53 | PC.NURSE ---
BIBA from home. Patient presents to ED c/o increased weakness. Denies C/P, SOB, dizziness, lightheadedness, and fevers. C/O Right arm pain PMH CVA with right sided deficits, patient unsure of thinners. EMS reports patient had a few nips last night into the morning, patient incontinent of urine at this time, reports occasional incontinence at times. Patient denies hx of withdraws, Patient unclear on frequency of alcohol use. Patient difficult to ambulate, 2 assist utilized with wheelchair Patient changed into hospital attire r/t incontinence Provider in to see patient plan of care on going
[2025-03-29] MEDS: Potassium Chloride Packet 20 MEQ PACKET 40 MEQ PO (11:43)
[2025-03-29 12:46] LABS: Troponin-I High Sensitivity 25.9 ng/L (<3.5-35.0)
[2025-03-29] MEDS: oxyCODONE HCl Immed Release 5 MG TABLET PO ×2 (14:25→21:41)
[2025-03-29 15:31] LABS: Anion Gap 12 (12-20); Blood Urea Nitrogen 26 mg/dL (9-16); Calcium 9.0 mg/dL (8.4-10.2); Carbon Dioxide 28 mmol/L (22-29); Chloride 106 mmol/L (96-108); Creatinine Clr Calc Pharmacy 71.0; Estimated Glomerular Filt Rate > 60; Potassium 3.5 mmol/L (3.3-5.1); Sodium 142 mmol/L (135-145)
--- NOTE | 2025-03-29 18:29 | MHC.CM.ED ---
CM met with patient to discuss discharge planning. Pt was inpatient at [facility] 12/03-12/07/2024. Then went to [facility] from 12/07-03/28. Pt is alert and orientated x3. Pt is very chatty. Speech has been affected by old CVA. Also has R sided deficits. Pt denies falling, but presents in Closed R humeral Fx. Pt presented to ED today with difficulty ambulating and weakness. Medically cleared. PT is pending. Pt states he lives with his cousin, Joyce. He has not lived at home for 3 months. His cousin/HCP#2 Markus was at bedside. CM was speaking about the possible need for LTC. Pt states he wants to be independent. However, patient has no explanation for staying at SNF for 3 months. He denies having any home services secured for him post discharge from [facility].Pt states he can microwave food and uses a walker. HCP on file. PCP is Lalo Izquierdo. Awaiting PT evaluation. [facility] is first choice. Will place local referrals.
[2025-03-29 18:53] LABS: Appearance Urine Cloudy; Glucose Urine UA 250 mg/dL (Negative); PH 7.0 (5.0-9.0); Specific Gravity - Urine 1.015 (1.005-1.025)
[2025-03-29 18:55] LABS: Cannabinoid Screen Urine Not Detected (Not Detect)
--- NOTE | 2025-03-29 19:10 | PC.NURSE ---
assumed care of pt, texas catheter working as it should. Pt in hallway, will attempt to get pt into room. Pt alert and oriented x3.
--- NOTE | 2025-03-29 19:16 | PC.NURSE ---
pt states he has pain, wants to be in a room. I will look into a room as they become available.
--- NOTE | 2025-03-29 20:13 | PC.NURSE ---
verbal report given to overflow RN Roberto. transport and rug inspector helper aware, pt ready to go over to overflow bed 6.
--- NOTE | 2025-03-29 23:23 | PC.ADMIT ---
Patient is alert/oriented, speech difficulties and right hand contracted from previous stroke with right sided deficits. Patient normally ambulatory with 4 leg walker. He is on a CIWA scale, currenty scoring a 5 d/t anxiety and increased activity. Denies withdrawal symptoms. He has widespread psoriasis. Unkempt. Hx of HTN and in the 180's when he arrived but after settling down and oxycodone medication for 8/10 right arm pain relief, his current b.p is 138/62. Lungs are cta, abdomen soft with positive bowel sounds, texas catheter in place with concentrated urine. Safety needs addressed, call ospina in hand and bed alarm on. No acute events.
[2025-03-30] VITALS (7 sets, daily range): BP systolic 116–159; BP diastolic 59–79; PULSE 48–89; RESP 18; TEMP 36.8–37.4; O2SAT 95–97
[2025-03-30] MEDS: oxyCODONE HCl Immed Release 5 MG TABLET PO ×2 (05:18→12:12)
--- NOTE | 2025-03-30 11:34 | PHA.MEDREC ---
Addendum entered by Rowan Baron RPh 03/30/25 11:37: reviewed by [facility] [place] Original Note: Pharmacy Consult ? Medication Reconciliation Pharmacy has completed the medication reconciliation. Utilized med list faxed over by Rubio at [facility].
[2025-03-30] MEDS: Aspirin Enteric Coated 81 MG TABLET.DR PO (12:19)
[2025-03-30] MEDS: Ferrous Sulfate 324 MG TABLET.DR PO (12:20)
[2025-03-30] MEDS: Lidocaine 4 % Patch ADH..PATCH 1 PATCH TRANSDERMA (12:20)
--- NOTE | 2025-03-30 17:00 | PC.NURSE ---
Verbal report given to receiving nurse Jacquie at [facility] in [place] via telephone.
== END 2025-03-30 17:49 ==
PROVIDERS: Registered Nurse Emergency; Emergency Provider Emergency Medicine; PCP Physician Assistant
DX: E87.6 Hypokalemia (principal); R42 Dizziness and giddiness; R53.1 Weakness; R32 Unspecified urinary incontinence; R94.31 Abnormal electrocardiogram [ECG] [EKG]; R07.9 Chest pain, unspecified; R06.00 Dyspnea, unspecified; M79.601 Pain in right arm; M79.641 Pain in right hand; M79.604 Pain in right leg; Z03.818 Encounter for observation for suspected exposure to other biological agents ruled out; Z91.81 History of falling; I10 Essential (primary) hypertension; Z79.899 Other long term (current) drug therapy; Z87.891 Personal history of nicotine dependence
CPT/HCPCS: 36415; 70450; 71046; 73060; 73090; 73120; 80048; 80053; 80307; 81003; 83690; 83735; 84484; 85025; 85610; 87502; 87635; 93005; 99285

== ENCOUNTER → 2025-03-29 08:45 | Outpatient (BNV) | payer MEDICARE, MEDICAID, SELFPAY | PROVIDERS: Emergency Provider Emergency Medicine; Visit Provider Internal Medicine | DX: I49.3 Ventricular premature depolarization (principal); I51.7 Cardiomegaly | CPT/HCPCS: 93010 ==

== ENCOUNTER → 2025-03-29 08:45 | Outpatient (BNV) | payer MEDICARE, MEDICAID, SELFPAY | PROVIDERS: Emergency Provider Emergency Medicine; Visit Provider Radiology Diagnostic Radiology | DX: I63.412 Cerebral infarction due to embolism of left middle cerebral artery (principal); G93.89 Other specified disorders of brain; J98.11 Atelectasis; S42.211A Unspecified displaced fracture of surgical neck of right humerus, initial encounter for closed fracture; M19.041 Primary osteoarthritis, right hand; M85.821 Other specified disorders of bone density and structure, right upper arm; M79.631 Pain in right forearm; W19.XXXA Unspecified fall, initial encounter | CPT/HCPCS: 70450; 71046; 73060; 73090; 73120 ==

== ENCOUNTER 2025-04-14 10:02 | Outpatient (REF) | payer MEDICARE, MEDICAID, SELFPAY ==
--- NOTE | ~2025-04-14 | XR_ITS ---
EXAMINATION: XR SHOULDER 2 OR MORE VIEWS RIGHT HISTORY: M25.519 - Pain in unspecified shoulder COMPARISON: Correlation is made to plain films of the right humerus dated 03/29/2025. FINDINGS: A single view of the right humerus is submitted. Osseous mineralization is normal. Again seen is a mildly displaced fracture of the surgical neck. There is inferior subluxation of the humeral head. The AC joint is not well evaluated. The soft tissues are unremarkable. XR/XR shoulder RT min 2V IMPRESSION: Mildly displaced fracture of the surgical neck of the humerus. Electronically signed by: Edwin Coronado MD 04/14/2025 03:29 PM EDT
== END 2025-04-14 10:03 | disposition home or self-care (01) ==
LOC: HO.HOSX 10:02
PROVIDERS: Visit Provider Physician Assistant
DX: S42.201A Unspecified fracture of upper end of right humerus, initial encounter for closed fracture (principal); X58.XXXA Exposure to other specified factors, initial encounter
CPT/HCPCS: 73030; 99202

== ENCOUNTER 2025-04-14 15:01 | Outpatient (AMB) | payer MEDICARE, MEDICAID, SELFPAY ==
--- NOTE | 2025-04-14 15:35 | MHC.OFFVIS ---
Intake Visit Reasons: FC - RT proximal humerus fx Intake Note: Devonte is a 69 year old male who presents today for a evaluation of his right humerus fx, DOI 03/28? Patient states he has 15 stairs to get in or out of his house and has been trouble managing. Allergies No Known Allergies Allergy (Verified 04/14/25 15:36) HPI HPI FC - RT proximal humerus fx: Details: Mr. Anguiano is a 69-year-old male who presents to the office today for evaluation of a right proximal humerus fracture that he sustained on 03/29/2025. He presented to the emergency department where he denied any recent fall but in the office today reports that he was walking to his apartment in which she fell backwards down the stairs. Of note, the patient does have a past medical history significant for a CVA with right-sided hemiplegia, HTN, psoriasis and alcohol use disorder. [facility] Medical History Stroke Hypertension Psoriasis Surgical History History of inguinal hernia repair Family History Father Cancer Mother Lung cancer Social History Household Members: None Housing: House Do you presently have visiting nurse or other home services: Yes (pt reported FUGITIVE INVESTIGATOR is not coming to take care of him) Alcohol intake: current Alcohol intake frequency: 0-2 drinks per day Alcohol type: beer Patient Tobacco Use Status: Former Tobacco user Tobacco use type: Cigarette Cigarettes Per Day: 3 Advance Directives Date on File: 02/21/23 service: No Cognitive needs: Yes Hearing needs: No Vision needs: Yes Review of Systems Const All systems reviewed & are unremarkable except as noted in HPI and below Physical Exam Const General: cooperative, healthy appearing and no acute distress Resp Effort & Inspection: normal respiratory effort and able to speak in complete sentences Extrem Other: Right upper extremity held in flexion with flexion contractures noted at the elbow, wrist and hand. Reports that he does have some sensation of the right hand. He is unable to perform any motion of the right upper extremity as this is his baseline. Psych Appearance: grossly normal Mental Status: mental status grossly normal Attitude: cooperative Assessment & Plan Assessment & Plan (1) Closed fracture of right proximal humerus: Code(s): S42.201A - Unspecified fracture of upper end of right humerus, initial encounter for closed fracture Category: Medical Plan Mr. Anguiano is a 69-year-old male who presents to the office today for evaluation of a right proximal humerus fracture that he sustained on 03/29/2025. He presented to the emergency department where he denied any recent fall but in the office today reports that he was walking to his apartment in which she fell backwards down the stairs. Of note, the patient does have a past medical history significant for a CVA with right-sided hemiplegia, HTN, psoriasis and alcohol use disorder. Around the office today, I discussed with the patient that we will manage this injury nonoperatively as he is hemiplegic affecting the right side and has no use of the right upper extremity. I have recommended nonweightbearing for 3 months in the right upper extremity. He may use a sling as needed for comfort but should DC the sling in the next 3-4 weeks completely. He will follow up PRN, sooner if needed. X-rays of the right shoulder which were obtained while in the office today and were reviewed by me, Belle Roa PA-C, revealed right proximal humerus fracture. Of note, the patient's healthcare proxy and brother Santino were contacted at today's appointment as the patient was dropped off from the rehab center without any assistance or labview programmer. Santino has given consent to treat. The rehab has been notified that the patient requires a staff member for all additional appointments as he is a high fall risk and has difficulties with communication. Orders: Orders XR shoulder RT min 2V Today M25.519 - Pain in unspecified shoulder Coding Level of Care Code New Pt Level 3 (97128) Diagnoses Closed fracture of right proximal humerus S42.201A
--- OUTSIDE RECORDS SUMMARY | 2025-04-14 18:55 | XMS_ITS | Data Portability ---
Author Organization [facility], Main Office Address [address] [place] [address] Care Team Providers Care Milling General Superintendent Name Role Phone NICOLE KAPLAN - 2ND FLOOR OTHER Assessment No assessment recorded. Plan of Treatment Reminders Order Date Submit Date Provider Last Modified By Organization Details Last Modified Time Details Appointments None record ed. Lab None record ed. Referral None record ed. Procedures None record ed. Surgeries None record ed. Imaging None record ed. Medication Orders None record ed. Patient TargetsNo targets recorded. Patient InstructionsNo instructions recorded. Reason for Referral None Reported. Problems Name Problem SNOMED Code Status Onset Date Resolution Date Notes Provider Name and Address Organization Details Recorded Time Hypertensiv e disorder 35326082 Active 2024 Bethany Bob NP [address], [address], [place], [address], [facility] [employer] [facility] 5 12:35:33 History of cerebrovasc ular accident 785986480 Completed 202412/08/2024 Bethany Bob NP [address], [address], [place], [address], [facility] [employer] [facility] 5 13:07:12 History of cerebrovasc ular accident 118655259 Active 2024 Bethany Bob NP [address], [address], [place], [address], [facility] [employer] [facility] 5 13:07:12 Recurrent falls 605940307 Active 2024 Bethany Bob NP [address], [address], [place], [address], [facility] [employer] [facility] 5 13:07:24 Closed fracture of multiple ribs 72547451 Active 2024 Bethany Bob NP [address], [address], [place], [address], [facility] 5 13:09:56 Iron deficiency anemia 93441282 Active 2024 Ashly Good MD [address], [address], [place], [address], [facility] 5 23:02:11 Harmful pattern of use of alcohol 68126576 Active 2024 Bethany Bob NP [address], [address], [place], [address], [facility] 5 13:15:26 Acute kidney injury 69861332 Active 2024 Bethany Bob NP [address], [address], [place], [address], [facility] 5 13:15:45 Asthenia 93244135 Active 2024 Bethany Bob NP [address], [address], [place], [address], [facility] 5 13:16:04 Acute urinary tract infection 502562779 Active 2024 Bethany Bob NP [address], [address], [place], [address], [facility] 5 13:16:39 Sepsis 83053438 Active 2024 Bethany Bob NP [address], [address], [place], [address], [facility] 5 13:17:28 Gastroesoph ageal reflux disease without esophagitis 262462087 Active 2024 Bethany Bob NP [address], [address], [place], [address], [facility] 5 13:25:35 Psoriasis 7340540 Active 2024 Bethany Bob NP [address], [address], [place], [address], [facility] 5 13:27:13 Right hemiparesis 827205119 Active 2024 Ashly Good MD [address], [address], [place], [address], [facility] 5 20:39:26 Dysarthria 3830709 Active 2024 Ashly Good MD [address], [address], [place], [address], [facility] 5 23:06:13 Expressive dysphasia 839453388 Active 2024 Ashly Good MD [address], [address], [place], [address], [facility] 5 20:39:18 Essential hypertensio n 21957822 Active 2024 Ashly Good MD [address], [address], [place], [address], [facility] 5 20:39:15 Problem Notes None recorded. Medical Equipment None Reported. Allergies No known drug allergies Vitals Date Recorded Body height Body mass index (BMI) Body weight Heart rate Respiratory rate Body temperature Oxygen saturation Oxygen saturation in Arterial blood by Pulse oximetry Systolic And Diastolic Provider Name and Address Organization Details Last Updated DateTime 5 175.26 cm 22.3 kg/m2 08368.4 5 g 72 /min 18 /min 97.8 [degF] 98 % 98 % 132/66 mm[Hg] Ashly Good MD [address], [address], [place], [address], [facility] 5 18:26:28 Date Recorded Body height Body mass index (BMI) Body weight Heart rate Respiratory rate Body temperature Oxygen saturation Oxygen saturation in Arterial blood by Pulse oximetry Systolic And Diastolic Provider Name and Address Organization Details Last Updated DateTime 5 175.26 cm 22 kg/m2 63387.2 6 g 72 /min 18 /min 97.8 [degF] 96 % 96 % 128/68 mm[Hg] Bethany Bob NP [address], [address], [place], [address], [facility] 5 19:59:36 Date Recorded Body height Heart rate Respiratory rate Body temperature Oxygen saturation Oxygen saturation in Arterial blood by Pulse oximetry Systolic And Diastolic Provider Name and Address Organization Details Last Updated DateTime 5 175.26 cm 68 /min 16 /min 97.5 [degF] 99 % 99 % 130/72 mm[Hg] JESSICA ESTRADA NP [address], [facility] [address], [place], [address], [facility] 5 11:45:53 Date Recorded Body height Body mass index (BMI) Body weight Heart rate Respiratory rate Body temperature Oxygen saturation Oxygen saturation in Arterial blood by Pulse oximetry Systolic And Diastolic Provider Name and Address Organization Details Last Updated DateTime 5 175.26 cm 21.4 kg/m2 32390.8 9 g 64 /min 16 /min 97.6 [degF] 99 % 99 % 124/66 mm[Hg] Ashly Good MD [address], [facility] [address], [place], [address], [facility] 5 20:21:02 Date Recorded Body height Heart rate Respiratory rate Body temperature Oxygen saturation Oxygen saturation in Arterial blood by Pulse oximetry Systolic And Diastolic Provider Name and Address Organization Details Last Updated DateTime 5 175.26 cm 72 /min 18 /min 97.6 [degF] 96 % 96 % 160/96 mm[Hg] JESSICA ESTRADA NP [address], [facility] [address], [place], [address], [facility] 5 13:59:36 Social History Question Answer Notes LastModified by Organizat ion Details LastModified Time Tobacco Smoking Status Former Smoker Bethany Bob NP [address], [facility] [address], [place], [address], [facility] 12/08/2024 12:40:02 Do You Have An Advance Directive? Yes Information not available 12/13/2024 What Is Your Code Status? Full Code Information not available 12/08/2024 Where Do You Live? Apartment [address]nd Floor, Niece Lives Downstairs Information not available 12/13/2024 Legal Guardian? No Informati on not available 12/08/2024 Do You Have A Medical Power Of Assisted Living Assistant? Yes Not Invoked Information not available 12/13/2024 What Was The Date Of Your Most Recent Tobacco Screening? 12/08/2024 Information not available 12/08/2024 Do You Have An Out Of Hospital DNR? No Information not available 12/08/2024 Have You Ever Been Counseled For Unhealthy Alcohol Use? Yes Counseled In Hospital On Admit Information not available 12/08/2024 What Is Your Relationship Status? Single Information not available 12/08/2024 How Much Tobacco Do You Smoke? No Unknown States Quit 1-6 Months Ago Information not available 12/13/2024 Has Tobacco Cessation Counseling Been Provided? No N/a As Pt No Longer Smokes Information not available 12/13/2024 Sex: Male Functional Status Question Answer Note LastModified by Organizat ion Details LastModified Time How many times per week do you consume alcohol? 5-7 times per week Information not available 12/08/2024 Do you use any illicit or recreational drugs? No denies Information not available 12/08/2024 Do you or have you ever used any other forms of tobacco or nicotine? No Information not available 12/08/2024 What is your level of alcohol consumption? Moderate Information not available 12/08/2024 Mental Status None recorded. Family History Nothing Reported Notes:pt states parents of old age Medical History No medical history recorded. Immunizations Vaccine Type Date Status Note Provider Nam e and Address Organization Details Recorded Time Tdap 01/02/[address] [facility] [employer] [facility] 12/08/2024 12:23:06 Td(adult) unspecified formulation 01/02/2014 [facility] Roxie Gallardo [facility] 12/08/2024 12:23:17 Past Encounters Encounter ID Performer Location Encounter Start Date Encounter Closed Date Diagnosis/Indication Diagnosis SNOMED-CT Code Diagnosis ICD10 Code Diagnosis IMO Codes Diagnosis Note [id number] Bethany Bob NP [address] [address] 12/08/2024 12:51:56 12/14/2024 10:47:12 Closed fracture of multiple ribs 38381150 S22.41XD 04344792 right 5-7th rib fracturesc ontlidocai ne patchtyl prnsplint with pillowmoni tor resp status Recurrent falls 18868961 2 R29.6 8263215 fall with rib fxsupporti ve careroom close to nurses stationmon itor Acute kidney injury 1466 9001 N17.9 117808 found on admission felt resolved with ivfmonitor bmp and cbc here Asthenia 60458964 R53.1 73199 pt ot eval and treatwalke r needed, request for family to bring in, does not like walker here Hypertensive disorder 38 556376 I10 51963811 pt with low bp in er, ? syncopemed s adjusted in ER to dc lisinopril and hydralazin econt amlodipine 10 mg po qdmonitor and adjust meds prnvitals daily History of cerebrovascular accident 317709706 Z86.73 694812 hx of approx 20 years ago with right hemiparesi s, right arm contractur e, and garbled speechaspi rin 81 mg po qdeval by speech and on reg diet in hospspeech to eval herefamily to bring in dentures Iron defic iency anemia 40502286 D50.9 39641995 found in hosp to have EBENEZER, unclear if he had this priorrec to start ferrous sulfate 324 mg po qdmonitor Harmful pa ttern of use of alcohol 13246203 F10.10 157674 pt reports he has a sip of beer dailyER felt possibly related to fallsstart ed on thiamine 100 mg po qd in hospitalmu ltivitamin qdcounsele d in hospcont abstinence monitor Acute urin yuliana tract infection 818133881 N39.0 060708 treated with ceftriaxon e and transition ed to cefuroxime 500 mg po bid x 4 more daysmonito r vitals and labscbc and bmp weekly x 3 wed Sepsis 49070722 A41.9 1296009418 resolved wtih abx in hosp felt due to UTI Gastroesop hageal reflux disease without esophagitis 663196566 K21.9 567215 omeprazole 20 mg po qdmonitor Psoriasis 3241331 L40.9 07315 triamcinol one topically dailymonit or for need to adjust [id number] JESSICA ESTRADA NP [address] [place] [address] 12/09/2024 13:50:33 12/14/2024 11:07:25 Acute urinary tract infection 165516442 N39.0 828204 treated with ceftriaxon e in hosp., transition ed to cefuroxime 500 mg po bid x 4 more daysmonito r vitals and labscbc and bmp weekly x 3 wedCBC not done, check x 1 in am Sepsis 21611529 A41.9 7580848555 [place] due to UTIImprove d with abxFinish cefuroxime Monitor VS, labs, sx. Closed fra cture of multiple ribs 79930061 S22.41XD 46233907 right 5-7th rib fracturesp ain not too bad contin ue:lidocai ne patchtylen ol prnsplint with pillowPT OT eval and tx.monitor resp status Recurrent falls 72671350 2 R29.6 7257765 fall with rib fxPT OT eval and tx.Baselin e right sided weakness, ambulation with walkerMoni tor safety, increased needs in community. Asthenia 84746960 R53.1 94890 see above, pt ot eval and treat Acute kidney injury 1466 9001 N17.9 018318 Improved with IVFEncoura ge hydrationA void nephrotoxi csMonitor labs q wed. x 3 Harmful pa ttern of use of alcohol 39859363 F10.10 177232 pt reports he has a sip of beer daily ER felt may be contributi ng to fallsstart ed on thiamine 100 mg po qd in hospital - continue herecontin ue MVI qdcounsele d in hosp, continue to encourage abstinence cont supportive caremonito r Hypertensive disorder 38 403120 I10 43996203 pt with low bp in er, ? syncopemed s adjusted at [facility] - off lisinopril and hydralazin eremains on amlodipine 10 mg po qdmonitor VS, labs; adjust meds prn Iron defic iency anemia 67568421 D50.9 63800151 found in hosp to have EBENEZER, unclear if he had this priorStart ed ferrous sulfate 324 mg po qd at [facility] - continuemo nitor CBC q wed. x 3, s/s active bleeding History of cerebrovascular accident 869721886 Z86.73 207280 hx of approx 20 years ago with right hemiparesi s, right arm contractur e, and garbled speech.Pt. reports using a walker at baselineSu spect residual deficits may also contributi ng to falls and safetyCont inue aspirin 81 mg po qdSeen by DISPLAY CARD WRITER at [facility] - on reg. dietReferr ed to DISPLAY CARD WRITER here as well.Famil y to bring in dentures from home - may need to consider soft/chopp ed diet in the mean time. Gastroesop hageal reflux disease without esophagitis 745872670 K21.9 720919 omeprazole 20 mg po qdmonitor GI sx. Psoriasis 1503557 L40.9 00473 Continue moisturize r and triamcinol one dailymonit or [id number] Ashly Good MD [address] [address] 12/13/2024 12:52:18 12/22/2024 17:08:16 Acute urinary tract infection 117300083 N39.0 224391 As above. Closed fra cture of multiple ribs 51286071 S22.41XD 66836139 No longer c/o pain.Denise nue lidocaine patch qd and APAP 650 mg q 4 hrs prn.Monito r resp status Recurrent falls 94390263 2 R29.6 0098728 With baseline imbalance due to hemiparesi s.Generall y does well with hemiwalker .Needs PT/OT for strengthen ing, balance, gait training, safety and function.C ontinue fall precaution s.Monitor for safety.Blaire ce looking in to getting chair lift for stairs as pt lives on 2nd floor. Asthenia 29768171 R53.1 87968 As above. Acute kidney injury 1466 9001 N17.9 307356 Back to baseline.C ontinue to avoid nephrotoxi c meds as able.Monit or labs.Renal consult prn. 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 Psoriasis 8367840 L40.9 36078 Continue moisturize r and triamcinol one dailyMonit or Fever 661941373 R50.81 726269 Temp was 103.8 on admission to ED. Had been down on ground on 90 degree day for unknown amt of time, but this is unlikely to have caused such a high temp.Presu med to be due to UTI despite U/A with only 6-10 WBCs.No other temps documented until 24 hrs after presentati on, at that time WNL.Was txed with IV fluids and CTX.Urine cx was neg, but continued on abx and changed to cefuroxime to complete course.Mon itor vitals. Traumatic rhabdomyolysis 637453441 T79.6XXD 68893142 Mild rhabdo, resolved with IV fluids.Mon itor labs. Sepsis 55728387 A41.89 2653120 Was febrile and tachycardi c on admission, but BP remained in nl range.Reso lved with IV fluids.Als o txed with abx as above, but no source found.Ivette tor for recurrent sxs. Essential hypertension 55580790 I10 015276 Meds adjusted in hospital.B Ps good since here.Denise nue amlodipine 10 mg po qdMonitor BP and labs Right hemiparesis 148826 009 I69.351 9880313987 Usually does well with hemiwalker .He attributes his fall to hot weather and not having enough to eat.Contin ue ASA 81 mg po qdPT/OT as above. Dysarthria 4293242 R47.1 22198 Reportedly improved since he got his dentures.B ut while we are talking he has to keep pushing his dentures back in, they don't seem to fit well.May need dental consult.SL P to follow, consult rewritten. Expressive dysphasia 229 494016 R47.01 47668 With moderate word finding difficulty .DISPLAY CARD WRITER consult. [id number] Bethany Bob NP [facility] [place] [address] 12/22/2024 09:17:30 12/23/2024 10:44:09 Fever 995433511 R50.81 136061 Temp was 103.8 on admission to ED. Had been down on ground on 90 degree day for unknown amt of time, but this is unlikely to have caused such a high temp.Presu med to be due to UTI despite U/A with only 6-10 WBCs.No other temps documented until 24 hrs after presentati on, at that time WNL.Was txed with IV fluids and CTX.Urine cx was neg, but continued on abx and changed to cefuroxime to complete course.Mon itor vitals. Traumatic rhabdomyolysis 281265228 T79.6XXD 46252074 Mild rhabdo, resolved with IV fluids.Mon itor labs.labs stable as above Acute urin yuliana tract infection 497510791 N39.0 528253 As above. see hpiimprove d Sepsis 40083687 A41.89 1653194 Was febrile and tachycardi c on admission, but BP remained in nl range.Reso lved with IV fluids.Als o txed with abx as above, but no source found.Ivette tor for recurrent sxs. Closed fra cture of multiple ribs 64355042 S22.41XD 11570093 No pain todayConti nue lidocaine patch qd and APAP 650 mg q 4 hrs prn.Monito r resp status Recurrent falls 59938373 2 R29.6 6491542 With baseline imbalance due to hemiparesi s.Generall y does well with hemiwalker .Needs PT/OT for strengthen ing, balance, gait training, safety and function.C ontinue fall precaution s.Monitor for safety.per prior note: Niece looking in to getting chair lift for stairs as pt lives on 2nd floor. Asthenia 48824040 R53.1 26506 As above. Acute kidney injury 1466 9001 N17.9 490651 Back to baseline.C ontinue to avoid nephrotoxi c meds as able.Monit or labs.Renal consult prn. Harmful pa ttern of use of alcohol 71884704 F10.10 613708 Unclear EtOH hx.Continu e thiamine 100 mg qd and MVI qdContinue to encourage abstinence Essential hypertension 76031741 I10 814443 Meds adjusted in hospital.B Ps stable hereContin ue amlodipine 10 mg po qdMonitor BP and labs Iron defic iency anemia 19866909 D50.8 3502544 idaUnclear etiology.C ontinue ferrous sulfate 324 mg qd.Monitor labs.Consi reema GI consult Right hemiparesis 267092 009 I69.351 4059405994 Usually does well with hemiwalker .He attributes his fall to hot weather and not having enough to eat.Contin ue ASA 81 mg po qdPT/OT as above. Expressive dysphasia 229 365466 R47.01 61133 With moderate word finding difficulty .DISPLAY CARD WRITER consult. Gastroesop hageal reflux disease without esophagitis 132148315 K21.9 019410 No current sxs.Contin ue omeprazole 20 mg qdMonitor GI sx. Psoriasis 3843221 L40.9 15392 Continue moisturize r and triamcinol one dailyMonit or [id number] JESSICA ESTRADA NP [address] [address] 01/04/2025 11:41:27 01/07/2025 07:52:02 Fever 106382661 R50.81 569840 Temp was 103.8 on admission to ED.Treated for possible UTI.No fevers since admission here.No s/s infection. Continue to monitor VS, labs, sx. Traumatic rhabdomyolysis 441730916 T79.6XXD 37946263 Mild rhabdo, resolved with IV fluids.BMP stable here, good po intake Acute urin yuliana tract infection 546802547 N39.0 755912 Improverd. Completed abx. in hosp.Monit or VS, labs, sx. for recurrence . Sepsis 68459693 A41.89 5286853 Resolved in hosp. with IV fluids and abx.Monito r VS, labs, s/s infection Closed fra cture of multiple ribs 51784441 S22.41XD 51349031 Pain improved.C ontinue lidocaine patch qd and APAP 650 mg q 4 hrs prn.Monito r and adjust tx. prn Recurrent falls 60938352 2 R29.6 2126177 With baseline imbalance due to hemiparesi s.Generall y does well with hemiwalker .Needs PT/OT for strengthen ing, balance, gait training, safety and function.C ontinue fall precaution s.Monitor for safety.per prior note: Niece looking in to getting chair lift for stairs as pt lives on 2nd floor. Asthenia 65372419 R53.1 83199 As above. Acute kidney injury 1466 9001 N17.9 525090 Back to baseline.C ontinue to avoid nephrotoxi c meds as able.Monit or labs.Renal consult prn. Harmful pa ttern of use of alcohol 63549236 F10.10 007747 Unclear EtOH hx.Continu e thiamine 100 mg qd and MVI qdContinue to encourage abstinence Essential hypertension 67412316 I10 100287 Meds adjusted in hospital.B Ps stable hereContin ue amlodipine 10 mg po qdMonitor BP and labs Iron defic iency anemia 10643704 D50.8 2953225 Unclear etiology.C ontinue ferrous sulfate 324 mg qd.Monitor labs.Consi reema GI consult Right hemiparesis 611786 009 I69.351 2388339280 Usually does well with hemiwalker .He attributes his fall to hot weather and not having enough to eat.Contin ue ASA 81 mg po qdPT/OT as above. Expressive dysphasia 229 409401 R47.01 82040 With moderate word finding difficulty .DISPLAY CARD WRITER consult prn Gastroesop hageal reflux disease without esophagitis 739487953 K21.9 402928 No current sxs.Contin ue omeprazole 20 mg qdMonitor GI sx. Psoriasis 0321785 L40.9 73591 Continue moisturize r and triamcinol one dailyMonit or [id number] Ashly Good MD [facility] [address] [address] 01/10/2025 20:19:08 01/11/2025 13:41:37 Closed fracture of multiple ribs 10616034 S22.41XD 08085849 No longer has pain.Denise nue lidocaine patch qd and APAP as above.Ivette tor resp status Recurrent falls 98497410 2 R29.6 1932902 Improving. Continue PT/OT for strengthen ing, balance, gait training, safety and function.C ontinue fall precaution s.Monitor for safety.Blaire ce looking in to getting chair lift for stairs as pt lives on 2nd floor. Asthenia 36165723 R53.1 66530 As above. Essential hypertension 51859024 I10 210651 BP remains good.Denise nue amlodipine 10 mg po qdMonitor BP and labsMonthl y labs ordered. Right hemiparesis 791071 009 I69.351 2324998529 He c/o right arm pain from contractur es.Would like APAP scheduled. Will start APAP 1000 mg TID.Contin ue ASA 81 mg po qdPT/OT as below.. [id number] JESSICA ESTRADA NP [address] [address] 01/18/2025 13:59:01 01/20/2025 14:23:27 Fever 227426308 R50.81 649134 Resolved.T emp was 103.8 on admission to ED.Treated for possible UTI.No fevers since admission here.No s/s infection. Continue to monitor VS, labs, sx. Traumatic rhabdomyolysis 921507713 T79.6XXD 90112460 REsolved.M ild rhabdo, resolved with IV fluids.BMP stable here, good po intake Acute urin yuliana tract infection 017760313 N39.0 469907 REsolved.C ompleted abx. in hosp.Monit or VS, labs, sx. for recurrence . Sepsis 28238267 A41.89 0798334 Resolved in hosp. with IV fluids and abx.Monito r VS, labs, s/s infection Closed fra cture of multiple ribs 20920298 S22.41XD 95653106 S/P fall.Pain improving. Continue lidocaine patch qd and APAP 1 gm tid.Workin g with rehabMonit or and adjust tx. prn Recurrent falls 53242213 2 R29.6 2654720 With baseline imbalance due to hemiparesi s.Generall y does well with hemiwalker .Continue PT/OT for strengthen ing, balance, gait training, safety and function.C frances fall precaution s.Monitor for safety.per prior note: Niece looking in to getting chair lift for stairs as pt lives on 2nd floor. Acute kidney injury 1466 9001 N17.9 444330 Back to baseline.C francoisue to avoid nephrotoxi c meds as able.Maint ain hydrationM onitor labs - currently stableRena l consult prn. Harmful pa ttern of use of alcohol 81067060 F10.10 779763 Unclear EtOH hx.Continu e thiamine 100 mg qd and MVI qdContinue to encourage abstinence Essential hypertension 27775747 I10 024949 Meds adjusted in hospital.B Ps elevated today, but other within better rangeConti nue amlodipine 10 mg po qdMonitor BP and labs Iron defic iency anemia 00522479 D50.8 5047033 Continue ferrous sulfate 324 mg qd.Monitor CBC - stable/imp rovedConsi reema GI consult Right hemiparesis 717032 009 I69.351 4403475611 Baseline use of hemiwalker .Continue ASA 81 mg po qd, APAP 1 gm tid for arm pain.PT/OT as above. Gastroesop hageal reflux disease without esophagitis 570732761 K21.9 552800 No current sxs.Contin ue omeprazole 20 mg qdMonitor GI sx. Psoriasis 5826890 L40.9 55667 Continue moisturize r and triamcinol one dailyMonit or Health Concerns Section Related Observation LastModified by Organization Detai ls LastModified Time None Recorded Concern Status LastModified by Organization Details LastModified Time None Recorded Advance Directives Directive Y: Payers Insurance Date Sequence Insurance Name Policy Number Policy Goodman Covered Member ID Goodman Member ID Guarantor Name 01/04/2025 1 MEDICARE B-[place]: [facility] [employer] Devonte Anguiano [id number] Devonte Anguiano 01/04/2025 2 MEDICAID-[place]: [facility] Devonte Anguiano [id number] Devonte Anguiano Notes Date Note Type Note Provider Name and Address Organization Details Recorded Time 5 text/html This is a 69 yo man who is here for rehab after an acute hospitalization for a slip and fall on sidewalk, found to have mild rhabdo, JEROME, and initially thought UTI which turned out neg. Per d/c summary:From the history and physical by the admitting hospitalist, BEATRIZ Reyes, 12/03/24: 69-year-old male with a history of hypertension, 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 History limited as the patient iscurrently altered, only alert to self. Per ED note, Patient was found down on the ground of unclear duration of time. He is covered in urine and dirt. Workup in the ED included muniz scan with negative head CT, negative C-spine CT. Chest CT with 1st right rib nondisplaced fracture. Abdominopelvic CT without any acute findings. Patient wasfebrile when he arrived with JEROME and elevated CPK of 939. He was given fluid bolus and ceftriaxone. UA is positive for urinary tract infection. Troponin elevated at 35.8, 40.6 on repeat, EKG with abnormal T-waves in lateral leads. Patient is unable to provide any history at this time. 69yo M with HTN, prior CVA with R-sided weakness/RUE contracture, GERD, psoriasis, and AUD who was found down on ground covered in urine and dirt, found to have 1st rib fx and UTI. He was admitted to the hospitalist service. Hospital course by problem:acute encephalopathy due to infection, sepsis due to UTI- Mental status improved with treatment of infection. BCx neg, UCx <10^5 cFU/ mL. Treated with ceftriaxone 12/03-12/07 and discharged on 4 days of cefuroxime.mild rhabdomyolysis due to fall- Improved with IV fluid hydrationhyperthermia vs fever- Could be from heat/impaired heat regulation due to EtOH vs sepsis; resolved.JEROME, prerenal- Resolved after IV fluid resuscitation.acute 1st R rib fx- Treated with acetaminophen and lidocaine patch, though he was minimally symptomatic.lactic acidosis- Was due to dehydration; resolved with IV fluids.troponins indeterminate/flat- EKG unchanged from prior; denied chest pain; canceled TTE + Cardiology consult.AUD- Treated with thiamine. No signs of withdrawal. Addiction Med consulted but pt denied that he had an alcohol problem. Negative BAL upon arrival. Phosphatidylethanol and vitamin B1 [thiamine] levels pending at the time of transfer to SNF. Recommended avoiding alcohol entirely.Due to impaired gait and balance, he was transferred to [facility] for short-term physical rehabilitation. He was transferred here on 12/07. Since here he has been working with rehab. He is improving slowly.He uses a jackelin-walker at baseline due to right hemiparesis.He is awake in bed. He gets very agitated when I try to untangle him from the bed control and call [place]ina, because they are the way he wants them.He then gets upset when he notices his jackelin-walker isn't in the wall near his room. He tell me he paid $100 for it. I end up finding down the wall and he is very appreciative.He tells me about the day he fell, it sometimes hard for him to get the words out, but he is able to get his point across. He tells me it was very hot out and he hadn't had much to eat (only ramen which he tells me isn't enough). His PMH includes HTN, hx of CVA with right hemiparesis/dysarthria/aph kasandra, GERD, psoriasis, anemia, epidermal cysts, and hx of EtOH abuse. Ashly Good MD [address], [address], [place], [address], [place] Orders 12/13/2024 23:07:42 5 text/html Pt is seen for an acute rounding visit. His PMH includes HTN, hx of CVA with right hemiparesis/dysarthria/aph kasandra, GERD, psoriasis, anemia, epidermal cysts, and hx of EtOH abuse. Devonte is a 69 yo man who is here for rehab after an acute hospitalization for a slip and fall on sidewalk, found to have mild rhabdo, JEROME, and possible UTI. Labs reviewed today on 12/22. No new concerns per staff. He remains reluctant for any hands on assistance from therapy and verbal guidance and supervision and direction used. On exam, pt is seen standing up attmepting to work with staff to help him back to bed. He is using a jackelin walker. He refused to use other walkers and occ forgets to grab on to the jackelin walker today then listens to direction. He seems to be mentally improving since admission but baseline confused. He denies any pain today and feels okay . Bethany Bob NP [address], [address], [place], [address], [place] Orders 12/22/2024 20:14:02 5 text/html Devonte is seen today for a routine, 30 day visit. He is a 69 yo male, here at [facility] for continued care and rehab after a hosp. due a fall in the community. Treated for fever, sepsis, rhabdo, JEROME, and rib fx. So far while here, he is working with rehab, making some progress.Looks good today, well shaved and groomed.Speech a little clearer.Right side remains weak.No new issues or concerns today per pt. He thinks he is feeling pretty good. VEry talkative, hard to keep on subject of conversation. Appetite excellent for lunch. No concerns per staff.Med compliant.VSSLast labs 12/22, stable. PMH: HTN, hx of CVA with right hemiparesis/dysarthria/aph kasandra, GERD, psoriasis, anemia, epidermal cysts, and hx of EtOH abuse. JESSICA ESTRADA NP [address], [address], [place], [address], [place] Orders 01/04/2025 12:06:50 5 text/html I am seeing this 69 yo man with chronic right hemiparesis for an acute visit to f/u on rehab progress and pain control.He has been working with rehab and ambulating with jackelin-walker with sup only.He says his rib pain is better, but right arm hurts and he would like scheduled APAP, but just not too late at night, because he hates being woken up. His PMH includes HTN, hx of CVA with right hemiparesis/dysarthria/aph kasandra, GERD, psoriasis, anemia, epidermal cysts, and hx of EtOH abuse. Ashly Good MD [address], [address], [place], [address], [place] [facility] 01/10/2025 20:39:42 5 text/html Devonte is seen today for an acute visit. He is a 69 yo male, here at [facility] for continued care and rehab after a hosp. due a fall in the community. Treated for fever, sepsis, rhabdo, JEROME, and rib fx. So far while here, he continues to work with rehab, making progress. Ambulating with jackelin walker in halls, 150 ft. with supervision, still working on balance and safety.Right side remains weak, sched. APAP added to manage arm pain, working well. Upon exam, Devonte is dressed, OOB, walking around with jackelin walker in his room, in good spirits. Gait unsteady. 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 Denies any complaints today, mostly focused on getting shaved. No concerns per staff.Med compliant.VSSLast labs 12/22, stable. PMH: HTN, hx of CVA with right hemiparesis/dysarthria/aph kasandra, GERD, psoriasis, anemia, epidermal cysts, and hx of EtOH abuse. JESSICA ESTRADA NP [address], [address], [place], [address], [facility] [employer] 01/18/2025 14:12:06
== END 2025-04-14 15:37 | disposition home or self-care (01) ==
LOC: HO.HOS 15:01
PROVIDERS: PCP Physician Assistant; Visit Provider Physician Assistant
DX: S42.201A Unspecified fracture of upper end of right humerus, initial encounter for closed fracture (principal)
CPT/HCPCS: 99203

== ENCOUNTER → 2025-04-14 15:17 | Outpatient (BNV) | payer MEDICARE, MEDICAID, SELFPAY | PROVIDERS: Visit Provider Radiology Diagnostic Radiology | DX: S42.211A Unspecified displaced fracture of surgical neck of right humerus, initial encounter for closed fracture (principal) | CPT/HCPCS: 73030 ==

== ENCOUNTER → 2025-06-17 08:25 | Outpatient (BNV) | payer MEDICARE, MEDICAID, SELFPAY | PROVIDERS: Visit Provider Radiology Diagnostic Radiology | DX: S42.211D Unspecified displaced fracture of surgical neck of right humerus, subsequent encounter for fracture with routine healing (principal) | CPT/HCPCS: 73030 ==

== ENCOUNTER 2025-06-17 08:32 | Outpatient (AMB) | payer MEDICARE, MEDICAID, SELFPAY ==
--- NOTE | 2025-06-17 08:39 | A.OFFVIS_ITS ---
Intake Visit Reasons: OV-RT proximal humerus fx (follow Up) Intake Note: Devonte is a 69 year old male who presents today for a evaluation of his right humerus fx, DOI 03/28? Patient states that he has been taking his pain medication which is helping. Allergies No Known Allergies Allergy (Verified 06/17/25 08:43) HPI Comments Details: History of Present Illness The patient is a 70 year old male presenting for follow-up of a shoulder injury. He sustained the injury after a fall. Patient has a history of stroke and baseline cognative difficulties. The stroke left the patient with right sided hemiparesis with no use of the right upper extremity. He presents to the office today with a sling on. Pain Description - Location: Shoulder - Severity: Patient reports his shoulder is feeling ok with no pain. Results - Imaging: - X-ray (Shoulder): Left proximal humerus fracture with routine healing. 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 - Constitutional: Denies walking. Physical Exam Exam Exam: Assessment & Plan Assessment & Plan (1) Closed fracture of right proximal humerus: Code(s): S42.201A - Unspecified fracture of upper end of right humerus, initial encounter for closed fracture Category: Medical (2) Contracture of muscle, right forearm: Code(s): M62.431 - Contracture of muscle, right forearm Category: Medical (3) H/O: CVA (cerebrovascular accident): Code(s): Z86.73 - Personal history of transient ischemic attack (TIA), and cerebral infarction without residual deficits Category: Medical (4) Hemiparesis affecting right side as late effect of stroke: Code(s): I69.351 - Hemiplegia and hemiparesis following cerebral infarction affecting right dominant side Category: Medical Plan 1. Left Proximal Humerus Fracture: Follow-up x-rays show signs of healing of the shoulder fracture. Although the alignment is not perfect, it is satisfactory as the patient does not have use of the right upper extremity. No surgery is recommended at this time. Continue non- operative management. I have recommended the patient work with physical therapy on gentle range of motion as the patient to preserve the range of motion he does have while using the extremity as a helper limb. The patient will follow up PRN, sooner if needed. Consent Patient was informed and verbally consented to the use of an ambient scribe for clinic note documentation during this visit. Coding Level of Care Code Est Pt Level 3 (03053) Add On Problem Visit Only Diagnoses Closed fracture of right proximal humerus S42.201A Contracture of muscle, right forearm M62.431 H/O: CVA (cerebrovascular accident) Z86.73 Hemiparesis affecting right side as late effect of stroke I69.351
--- OUTSIDE RECORDS SUMMARY | 2025-06-17 08:41 | XMS_ITS | Data Portability ---
Author Organization [facility], Main Office Address [address] [facility], [address] [place] [address] Care Team Providers Care Furnace Tapper Name Role Phone NICOLE KAPLAN - 2ND [...] Organization Details Recorded Time Hypertensiv e disorder 89465895 Active 2024 Bethany Bob NP [address] [facility], [address], [place], [address], [facility] flikdate [facility] 5 12:35:33 History of cerebrovasc ular accident 989143725 Completed 202412/08/2024 Bethany Bob NP [address] [facility], [address], [place], [address], [facility] fl[facility]date [facility] 5 13:07:12 History of cerebrovasc ular accident 017951025 Active 2024 Bethany Bob NP [address] [facility], [address], [place], [address], [facility] flikdate [facility] 5 13:07:12 Recurrent falls 668249373 Active 2024 Bethany Bob NP [address], [place], [address], [facility] fl[facility] 5 13:07:24 Closed fracture of multiple ribs 41287081 Active 2024 Bethany Bob NP [address], [address], [place], [address], [facility] 5 13:09:56 Iron deficiency anemia 71679659 Active 2024 Ashly Good MD [address], [address], [place], [address], [facility] 5 23:02:11 Harmful pattern of use of alcohol 77243922 Active 2024 Bethany Bob NP [address], [address], [place], [address], [facility] 5 13:15:26 Acute kidney injury 06614176 Active 2024 Bethany Bob NP [address], [address], [place], [address], [facility] 5 13:15:45 Asthenia 93405178 Active 2024 Bethany Bob NP [address], [address], [place], [address], [facility] 5 13:16:04 Acute urinary tract infection 878014891 Active 2024 Bethany Bob NP [address], [address], [place], [address], [facility] 5 13:16:39 Sepsis 70219756 Active 2024 Bethany Bob NP [address], [address], [place], [address], [facility] 5 13:17:28 Gastroesoph ageal reflux disease without esophagitis 712113148 Active 2024 Bethany Bob NP [address], [address], [place], [address], [facility] 5 13:25:35 Psoriasis 2041171 Active 2024 Bethany Bob NP [address], [place], [address], [facility] 13:27:13 Right hemiparesis 525417054 Active 2024 Ashly Good MD [address] [facility], [address], [place], [address], [facility] 5 20:39:26 Dysarthria 1076641 Active 2024 Ashly Good MD [address] [facility], [address], [place], [address], [facility] 5 23:06:13 Expressive dysphasia 574947565 Active 2024 Ashly Good MD [address] [facility], [address], [place], [address], [facility] 5 20:39:18 Essential hypertensio n 24290658 Active 2024 Ashly Good MD [address] [facility], [address], [place], [address], [facility] 20:39:15 Problem Notes None recorded. Medical Equipment None Reported. Allergies No known drug allergies Vitals Date Recorded Body height Body mass index (BMI) Body weight Heart rate Respiratory rate Body temperature Oxygen saturation Systolic And Diastolic Provider Name and Address Organization Details Last Updated DateTime 175.26 cm 22.3 kg/m2 82257.4 5 g 72 /min 18 /min 97.8 [degF] 98 % 132/66 mm[Hg] Ashly Good MD [address] [facility], [address], [place], [address], [facility] 5 18:26:28 Date Recorded Body height Body mass index (BMI) Body weight Heart rate Respiratory rate Body temperature Oxygen saturation Systolic And Diastolic Provider Name and Address Organization Details Last Updated DateTime 175.26 cm 22 kg/m2 87675.2 6 g 72 /min 18 /min 97.8 [degF] 96 % 128/68 mm[Hg] Bethany Bob NP [address] [facility], [address], [place], [address], [facility] 5 19:59:36 Date Recorded Body height Heart rate Respiratory rate Body temperature Oxygen saturation Systolic And Diastolic Provider Name and Address Organization Details Last Updated DateTime 5 175.26 cm 68 /min 16 /min 97.5 [degF] 99 % 130/72 mm[Hg] JESSICA ESTRADA NP [address] [facility], [address], [place], [address], [facility] 5 11:45:53 Date Recorded Body height Body mass index (BMI) Body weight Heart rate Respiratory rate Body temperature Oxygen saturation Systolic And Diastolic Provider Name and Address Organization Details Last Updated DateTime 5 175.26 cm 21.4 kg/m2 73814.8 9 g 64 /min 16 /min 97.6 [degF] 99 % 124/66 mm[Hg] Ashly Good MD [address] [facility], [address], [place], [address], [facility] 5 20:21:02 Date Recorded Body height Heart rate Respiratory rate Body temperature Oxygen saturation Systolic And Diastolic Provider Name and Address Organization Details Last Updated DateTime 5 175.26 cm 72 /min 18 /min 97.6 [degF] 96 % 160/96 mm[Hg] JESSICA ESTRADA NP [address] [facility], [address], [place], [address], [facility] 5 13:59:36 Social History Question Answer Notes LastModified by Organizat ion Details LastModified Time Tobacco Smoking Status Former Smoker Bethany Bob NP [address] [facility], [address], [place], [address], [facility] 12/08/2024 12:40:02 Do You Have An Advance Directive? Yes Information not available 12/13/2024 What Is Your Code Status? Full Code Information not available 12/08/2024 Where Do You Live? Apartment [address] Floor, Niece Lives Downstairs Information not available 12/13/2024 Legal Guardian? No Informati on not available 12/08/2024 Do You Have A Medical Power Of Supervisor Boarding? Yes Not Invoked Information not available 12/13/2024 [...] Organization Details Recorded Time Tdap 01/02/2014 completed [facility] 12/08/2024 12:23:06 Td(adult) unspecified formulation 01/02/2014 [facility] 12/08/2024 12:23:17 Past Encounters Encounter ID Performer Location Encounter Start Date Encounter Closed Date Diagnosis/Indication Diagnosis SNOMED-CT Code Diagnosis ICD10 Code Diagnosis IMO Codes Diagnosis Note [id number] Bethany Bob NP [address] [address] 12/08/2024 12:51:56 12/14/2024 10:47:12 Closed fracture of multiple ribs 13097101 S22.41XD 46144325 right 5-7th rib fracturesc ontlidocai ne patchtyl prnsplint with pillowmoni tor resp status Recurrent falls 42480259 2 R29.6 9555015 fall with rib fxsupporti ve careroom close to nurses stationmon itor Acute kidney injury 1466 9001 N17.9 565650 found on admission felt resolved with ivfmonitor bmp and cbc here Asthenia 32394789 R53.1 45349 pt ot eval and treatwalke r needed, request for family to bring in, does not like walker here Hypertensive disorder 38 025807 I10 15145875 pt with low bp in er, ? syncopemed s adjusted in ER to dc lisinopril and hydralazin econt amlodipine 10 mg po qdmonitor and adjust meds prnvitals daily History of cerebrovascular accident 598353813 Z86.73 010369 hx of approx 20 years ago with right hemiparesi s, right arm contractur e, and garbled speechaspi rin 81 mg po qdeval by speech and on reg diet in hospspeech to eval herefamily to bring in dentures Iron defic iency anemia 59734686 D50.9 84121445 found in hosp to have EBENEZER, unclear if he had this priorrec to start ferrous sulfate 324 mg po qdmonitor Harmful pa ttern of use of alcohol 93129383 F10.10 167035 pt reports he has a sip of beer dailyER felt possibly related to fallsstart ed on thiamine 100 mg po qd in hospitalmu ltivitamin qdcounsele d in hospcont abstinence monitor Acute urin yuliana tract infection 508277162 N39.0 172959 treated with ceftriaxon e and transition ed to cefuroxime 500 mg po bid x 4 more daysmonito r vitals and labscbc and bmp weekly x 3 wed Sepsis 70705050 A41.9 3951302781 resolved wtih abx in hosp felt due to UTI Gastroesop hageal reflux disease without esophagitis 975656413 K21.9 591305 omeprazole 20 mg po qdmonitor Psoriasis 3795154 L40.9 81386 triamcinol one topically dailymonit or for need to adjust [id number] JESSICA ESTRADA NP [address] [address] 12/09/2024 13:50:33 12/14/2024 11:07:25 Acute urinary tract infection 968580581 N39.0 276716 treated with ceftriaxon e in hosp., transition ed to cefuroxime 500 mg po bid x 4 more daysmonito r vitals and labscbc and bmp weekly x 3 wedCBC not done, check x 1 in am Sepsis 73015123 A41.9 1017200327 [place] due to UTIImprove d with abxFinish cefuroxime Monitor VS, labs, sx. Closed fra cture of multiple ribs 47234001 S22.41XD 00307949 right 5-7th rib fracturesp ain not too bad contin ue:lidocai ne patchtylen ol prnsplint with pillowPT OT eval and tx.monitor resp status Recurrent falls 43998456 2 R29.6 3104399 fall with rib fxPT OT eval and tx.Baselin e right sided weakness, ambulation with walkerMoni tor safety, increased needs in community. Asthenia 26933449 R53.1 23759 see above, pt ot eval and treat Acute kidney injury 1466 9001 N17.9 068018 Improved with IVFEncoura ge hydrationA void nephrotoxi csMonitor labs q wed. x 3 Harmful pa ttern of use of alcohol 34163533 F10.10 572811 pt reports he has a sip of beer daily ER felt may be contributi ng to fallsstart ed on thiamine 100 mg po qd in hospital - continue herecontin ue MVI qdcounsele d in hosp, continue to encourage abstinence cont supportive caremonito r Hypertensive disorder 38 938341 I10 65694659 pt with low bp in er, ? syncopemed s adjusted at [facility] [place] [place] - off lisinopril and hydralazin eremains on amlodipine 10 mg po qdmonitor VS, labs; adjust meds prn Iron defic iency anemia 84099150 D50.9 41509916 found in hosp to have EBENEZER, unclear if he had this priorStart ed ferrous sulfate 324 mg po qd at [facility] [place] [place] - continuemo nitor CBC q wed. x 3, s/s active bleeding History of cerebrovascular accident 476374001 Z86.73 436674 hx of approx 20 years ago with right hemiparesi s, right arm contractur e, and garbled speech.Pt. reports using a walker at baselineSu spect residual deficits may also contributi ng to falls and safetyCont inue aspirin 81 mg po qdSeen by DIE CAST OPERATOR at [facility] [place] [place] - on reg. dietReferr ed to DIE CAST OPERATOR here as well.Famil y to bring in dentures from home - may need to consider soft/chopp ed diet in the mean time. Gastroesop hageal reflux disease without esophagitis 623130692 K21.9 945844 omeprazole 20 mg po qdmonitor GI sx. Psoriasis 1967121 L40.9 43786 Continue moisturize r and triamcinol one dailymonit or [id number] Ashly Good MD [address] [address] 12/13/2024 12:52:18 12/22/2024 17:08:16 Acute urinary tract infection 578452888 N39.0 485661 As above. Closed fra cture of multiple ribs 66955733 S22.41XD 12388021 No longer c/o pain.Denise nue lidocaine patch qd and APAP 650 mg q 4 hrs prn.Monito r resp status Recurrent falls 11620559 2 R29.6 8398830 With baseline imbalance due to hemiparesi s.Generall y does well with hemiwalker .Needs PT/OT for strengthen ing, balance, gait training, safety and function.C ontinue fall precaution s.Monitor for safety.Blaire ce looking in to getting chair lift for stairs as pt lives on 2nd floor. Asthenia 85878687 R53.1 05996 As above. Acute kidney injury 1466 9001 N17.9 629933 Back to baseline.C ontinue to avoid nephrotoxi c meds as able.Monit or labs.Renal consult prn. 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 Psoriasis 3517316 L40.9 21809 Continue moisturize r and triamcinol one dailyMonit or Fever 560781347 R50.81 405923 Temp was 103.8 on admission to ED. [...] to complete course.Mon itor vitals. Traumatic rhabdomyolysis 096699935 T79.6XXD 39004182 Mild rhabdo, resolved with IV fluids.Mon itor labs. Sepsis 10689838 A41.89 3892114 Was febrile and tachycardi c on admission, but BP remained in nl range.Reso lved with IV fluids.Als o txed with abx as above, but no source found.Ivette tor for recurrent sxs. Essential hypertension 29135564 I10 778455 Meds adjusted in hospital.B Ps good since here.Denise nue amlodipine 10 mg po qdMonitor BP and labs Right hemiparesis 876858 009 I69.351 7212233976 Usually does well with hemiwalker .He attributes his fall to hot weather and not having enough to eat.Contin ue ASA 81 mg po qdPT/OT as above. Dysarthria 1111378 R47.1 50365 Reportedly improved since he got his dentures.B ut while we are talking he has to keep pushing his dentures back in, they don't seem to fit well.May need dental consult.SL P to follow, consult rewritten. Expressive dysphasia 229 961945 R47.01 06384 With moderate word finding difficulty .DIE CAST OPERATOR consult. [id number] Bethany Bob NP [address] [address] 12/22/2024 09:17:30 12/23/2024 10:44:09 Fever 130036082 R50.81 131005 Temp was 103.8 on admission to ED. [...] to complete course.Mon itor vitals. Traumatic rhabdomyolysis 107685380 T79.6XXD 74627219 Mild rhabdo, resolved with IV fluids.Mon itor labs.labs stable as above Acute urin yuliana tract infection 428225698 N39.0 714295 As above. see hpiimprove d Sepsis 61655322 A41.89 7725848 Was febrile and tachycardi c on admission, but BP remained in nl range.Reso lved with IV fluids.Als o txed with abx as above, but no source found.Ivette tor for recurrent sxs. Closed fra cture of multiple ribs 85242318 S22.41XD 13686059 No pain todayConti nue lidocaine patch qd and APAP 650 mg q 4 hrs prn.Monito r resp status Recurrent falls 40436114 2 R29.6 1451417 With baseline imbalance due to hemiparesi s.Generall y does well with hemiwalker .Needs PT/OT for strengthen ing, balance, gait training, safety and function.C ontinue fall precaution s.Monitor for safety.per prior note: Niece looking in to getting chair lift for stairs as pt lives on 2nd floor. Asthenia 42825383 R53.1 32109 As above. Acute kidney injury 1466 9001 N17.9 242334 Back to baseline.C ontinue to avoid nephrotoxi c meds as able.Monit or labs.Renal consult prn. Harmful pa ttern of use of alcohol 82416914 F10.10 640605 Unclear EtOH hx.Continu e thiamine 100 mg qd and MVI qdContinue to encourage abstinence Essential hypertension 10913485 I10 080428 Meds adjusted in hospital.B Ps stable hereContin ue amlodipine 10 mg po qdMonitor BP and labs Iron defic iency anemia 54758876 D50.8 9180260 idaUnclear etiology.C ontinue ferrous sulfate 324 mg qd.Monitor labs.Consi reema GI consult Right hemiparesis 285195 009 I69.351 0976842744 Usually does well with hemiwalker .He attributes his fall to hot weather and not having enough to eat.Contin ue ASA 81 mg po qdPT/OT as above. Expressive dysphasia 229 052958 R47.01 63932 With moderate word finding difficulty .DIE CAST OPERATOR consult. Gastroesop hageal reflux disease without esophagitis 263210708 K21.9 249458 No current sxs.Contin ue omeprazole 20 mg qdMonitor GI sx. Psoriasis 2769339 L40.9 98911 Continue moisturize r and triamcinol one dailyMonit or [id number] JESSICA ESTRADA NP [address] [address] 01/04/2025 11:41:27 01/07/2025 07:52:02 Fever 993948919 R50.81 483160 Temp was 103.8 on admission to ED.Treated for possible UTI.No fevers since admission here.No s/s infection. Continue to monitor VS, labs, sx. Traumatic rhabdomyolysis 900201886 T79.6XXD 38574916 Mild rhabdo, resolved with IV fluids.BMP stable here, good po intake Acute urin yuliana tract infection 980888594 N39.0 082569 Improverd. Completed abx. in hosp.Monit or VS, labs, sx. for recurrence . Sepsis 54173522 A41.89 1906143 Resolved in hosp. with IV fluids and abx.Monito r VS, labs, s/s infection Closed fra cture of multiple ribs 56895918 S22.41XD 68734469 Pain improved.C ontinue lidocaine patch qd and APAP 650 mg q 4 hrs prn.Monito r and adjust tx. prn Recurrent falls 78014647 2 R29.6 2033453 With baseline imbalance due to hemiparesi s.Generall y does well with hemiwalker .Needs PT/OT for strengthen ing, balance, gait training, safety and function.C ontinue fall precaution s.Monitor for safety.per prior note: Niece looking in to getting chair lift for stairs as pt lives on floor. Asthenia 56973184 R53.1 03418 As above. Acute kidney injury 1466 9001 N17.9 440993 Back to baseline.C ontinue to avoid nephrotoxi c meds as able.Monit or labs.Renal consult prn. Harmful pa ttern of use of alcohol 75610219 F10.10 870131 Unclear EtOH hx.Continu e thiamine 100 mg qd and MVI qdContinue to encourage abstinence Essential hypertension 05450075 I10 825381 Meds adjusted in hospital.B Ps stable hereContin ue amlodipine 10 mg po qdMonitor BP and labs Iron defic iency anemia 71208258 D50.8 3935182 Unclear etiology.C ontinue ferrous sulfate 324 mg qd.Monitor labs.Consi reema GI consult Right hemiparesis 501456 009 I69.351 1953982484 Usually does well with hemiwalker .He attributes his fall to hot weather and not having enough to eat.Contin ue ASA 81 mg po qdPT/OT as above. Expressive dysphasia 229 438032 R47.01 11972 With moderate word finding difficulty .DIE CAST OPERATOR consult prn Gastroesop hageal reflux disease without esophagitis 610615286 K21.9 486414 No current sxs.Contin ue omeprazole 20 mg qdMonitor GI sx. Psoriasis 3878332 L40.9 87084 Continue moisturize r and triamcinol one dailyMonit or [id number] Ashly Good MD [address] [address] 01/10/2025 20:19:08 01/11/2025 13:41:37 Closed fracture of multiple ribs 71491795 S22.41XD 00050327 No longer has pain.Denise nue lidocaine patch qd and APAP as above.Ivette tor resp status Recurrent falls 13078484 2 R29.6 6659195 Improving. Continue PT/OT for strengthen ing, balance, gait training, safety and function.C ontinue fall precaution s.Monitor for safety.Blaire ce looking in to getting chair lift for stairs as pt lives on 2nd floor. Asthenia 12903136 R53.1 10413 As above. Essential hypertension 80725615 I10 681580 BP remains good.Denise nue amlodipine 10 mg po qdMonitor BP and labsMonthl y labs ordered. Right hemiparesis 436144 009 I69.351 6966744126 He c/o right arm pain from contractur es.Would like APAP scheduled. Will start APAP 1000 mg TID.Contin ue ASA 81 mg po qdPT/OT as below.. [id number] JESSICA ESTRADA NP [address] [place] [address] 01/18/2025 13:59:01 01/20/2025 14:23:27 Fever 262922247 R50.81 151534 Resolved.T emp was 103.8 on admission to ED.Treated for possible UTI.No fevers since admission here.No s/s infection. Continue to monitor VS, labs, sx. Traumatic rhabdomyolysis 636376901 T79.6XXD 21084444 REsolved.M ild rhabdo, resolved with IV fluids.BMP stable here, good po intake Acute urin yuliana tract infection 436821439 N39.0 045978 REsolved.C ompleted abx. in hosp.Monit or VS, labs, sx. for recurrence . Sepsis 61034467 A41.89 0386417 Resolved in hosp. with IV fluids and abx.Monito r VS, labs, s/s infection Closed fra cture of multiple ribs 57439318 S22.41XD 38615265 S/P fall.Pain improving. Continue lidocaine patch qd and APAP 1 gm tid.Workin g with rehabMonit or and adjust tx. prn Recurrent falls 23821102 2 R29.6 9116002 With baseline imbalance due to hemiparesi s.Generall y does well with hemiwalker .Continue PT/OT for strengthen ing, balance, gait training, safety and function.C ontinue fall precaution s.Monitor for safety.per prior note: Niece looking in to getting chair lift for stairs as pt lives on 2nd floor. Acute kidney injury 1466 9001 N17.9 769959 Back to baseline.C ontinue to avoid nephrotoxi c meds as able.Maint ain hydrationM onitor labs - currently stableRena l consult prn. Harmful pa ttern of use of alcohol 81687309 F10.10 206686 Unclear EtOH hx.Continu e thiamine 100 mg qd and MVI qdContinue to encourage abstinence Essential hypertension 07650971 I10 773062 Meds adjusted in hospital.B Ps elevated today, but other within better rangeConti nue amlodipine 10 mg po qdMonitor BP and labs Iron defic iency anemia 09719992 D50.8 8973109 Continue ferrous sulfate 324 mg qd.Monitor CBC - stable/imp rovedConsi reema GI consult Right hemiparesis 862287 009 I69.351 5269886594 Baseline use of hemiwalker .Continue ASA 81 mg po qd, APAP 1 gm tid for arm pain.PT/OT as above. Gastroesop hageal reflux disease without esophagitis 437340931 K21.9 196574 No current sxs.Contin ue omeprazole 20 mg qdMonitor GI sx. Psoriasis 5732549 L40.9 26779 Continue moisturize r and triamcinol one dailyMonit or Health Concerns Section Related Observation LastModified by Organization Detai ls LastModified Time None Recorded Concern Status LastModified by Organization Details LastModified Time None Recorded Advance Directives Directive Y: Payers Insurance Date Sequence Insurance Name Policy Number Policy Goodman Covered Member ID Goodman Member ID Guarantor Name 01/04/2025 1 [place]ARE [place] [employer] [facility] Devonte Anguiano [id number] Devonte Anguiano 01/04/2025 2 [place] [facility] Devonte Anguiano [id number] Devonte Anguiano Notes Date Note Type Note [...] gait and balance, he was transferred to [facility] for short-term physical rehabilitation. He [...] of EtOH abuse. Ashly Good MD [address] [facility], [address], [place], [address], [facility] 12/13/2024 23:07:42 5 text/html Pt is seen for an acute rounding visit. His PMH includes HTN, hx of CVA with right hemiparesis/dysarthria/aph kasandra, GERD, psoriasis, anemia, epidermal cysts, and hx of EtOH abuse. Devonte is a 69 yo man who is here for rehab after an acute hospitalization for a slip and fall on sidewal, found to have mild rhabdo, JEROME, and [...] feels okay . Bethany Bob NP [address] [facility], [address], [place], [address], [facility] 12/22/2024 20:14:02 5 text/html Devonte is seen today for a routine, 30 day visit. He is a 69 yo male, here at [facility] for continued care and rehab after a [...] of EtOH abuse. JESSICA ESTRADA NP [address] [facility], [address], [place], [address], [facility] 01/04/2025 12:06:50 5 text/html I am seeing [...] of EtOH abuse. Ashly Good MD [address] [facility], [address], [place], [address], [facility] 01/10/2025 20:39:42 5 text/html Devonte is seen today for an acute visit. He is a 69 yo male, here at [facility] for continued care and rehab after a [...] good spirits. Gait unsteady. Asking for his CERAMIST, wants a good shave. Denies any complaints today, mostly focused on getting shaved. No concerns per staff.Med compliant.VSSLast labs 12/22, stable. PMH: HTN, hx of CVA with right hemiparesis/dysarthria/aph kasandra, GERD, psoriasis, anemia, epidermal cysts, and hx of EtOH abuse. JESSICA ESTRADA NP [address] [facility], [address], [place], [address], [facility] flikdate [facility] 01/18/2025 14:12:06
== END 2025-06-17 09:15 | disposition home or self-care (01) ==
LOC: HO.HOS 08:32
PROVIDERS: Visit Provider Physician Assistant
DX: S42.201A Unspecified fracture of upper end of right humerus, initial encounter for closed fracture (principal); M62.431 Contracture of muscle, right forearm; Z86.73 Personal history of transient ischemic attack (TIA), and cerebral infarction without residual deficits; I69.351 Hemiplegia and hemiparesis following cerebral infarction affecting right dominant side
CPT/HCPCS: 99213; G2211

== ENCOUNTER 2025-06-17 08:40 | Outpatient (REF) | payer MEDICARE, MEDICAID, SELFPAY ==
--- NOTE | ~2025-06-17 | XR_ITS ---
EXAMINATION: XR SHOULDER 2 OR MORE VIEWS RIGHT HISTORY: M25.519 - Pain in unspecified shoulder COMPARISON: Comparison is made with the prior examination dated 04/14/2025. FINDINGS: Three views of the right shoulder are submitted. The bones are osteopenic. Again seen is a fracture of the surgical neck of the humerus. A small amount of callus formation is noted. The glenohumeral joint is not well visualized. There is narrowing of the AC joint. The soft tissues are unremarkable. XR/XR shoulder RT min 2V IMPRESSION: Osteopenia. Healing fracture of the surgical neck of the humerus. Electronically signed by: Edwin Coronado MD 06/17/2025 08:40 AM EST
--- OUTSIDE RECORDS SUMMARY | 2025-06-20 09:04 | XMS_ITS | Data Portability ---
Author Organization [facility], Main Office Address [address] [facility], [address] [place] [address] Care Team Providers Care Medical Claims Specialist Name Role Phone NICOLE KAPLAN - 2ND [...] Organization Details Recorded Time Hypertensiv e disorder 23918606 Active 2024 Bethany Bob NP [address] [facility], [address], [place], [address], [facility] 5 12:35:33 History of cerebrovasc ular accident 712559156 Completed 202412/08/2024 Bethany Bob NP [address] [facility], [address], [place], [address], [facility] 5 13:07:12 History of cerebrovasc ular accident 112686913 Active 2024 Bethany Bob NP [address] [facility], [address], [place], [address], [facility] 5 13:07:12 Recurrent falls 156936398 Active 2024 Bethany Bob NP [address], [address], [place], [address], [facility] 5 13:07:24 Closed fracture of multiple ribs 51934031 Active 2024 Bethany Bob NP [address], [address], [place], [address], [facility] 5 13:09:56 Iron deficiency anemia 82102705 Active 2024 Ashly Good MD [address], [address], [place], [address], [facility] 5 23:02:11 Harmful pattern of use of alcohol 03042676 Active 2024 Bethany Bob NP [address], [address], [place], [address], [facility] 5 13:15:26 Acute kidney injury 58728338 Active 2024 Bethany Bob NP [address], [address], [place], [address], [facility] 5 13:15:45 Asthenia 51886174 Active 2024 Bethany Bob NP [address], [address], [place], [address], [facility] 5 13:16:04 Acute urinary tract infection 539351801 Active 2024 Bethany Bob NP [address], [address], [place], [address], [facility] 5 13:16:39 Sepsis 55666304 Active 2024 Bethany Bob NP [address], [address], [place], [address], [facility] 5 13:17:28 Gastroesoph ageal reflux disease without esophagitis 512756666 Active 2024 Bethany Bob NP [address], [address], [place], [address], [facility] 5 13:25:35 Psoriasis 1129694 Active 2024 Bethany Bob NP [address], [place], [address], [facility] 13:27:13 Right hemiparesis 519232594 Active 2024 Ashly Good MD [address] [facility], [address], [place], [address], [facility] 5 20:39:26 Dysarthria 3943887 Active 2024 Ashly Good MD [address] [facility], [address], [place], [address], [facility] 5 23:06:13 Expressive dysphasia 528318671 Active 2024 Ashly Good MD [address] [facility], [address], [place], [address], [facility] 5 20:39:18 Essential hypertensio n 51186915 Active 2024 Ashly Good MD [address] [facility], [address], [place], [address], [facility] 20:39:15 Problem Notes None recorded. Medical Equipment None Reported. Allergies No known drug allergies Vitals Date Recorded Body height Body mass index (BMI) Body weight Heart rate Respiratory rate Body temperature Oxygen saturation Systolic And Diastolic Provider Name and Address Organization Details Last Updated DateTime 175.26 cm 22.3 kg/m2 40926.4 5 g 72 /min 18 /min 97.8 [degF] 98 % 132/66 mm[Hg] Ashly Good MD [address] [facility], [address], [place], [address], [facility] 5 18:26:28 Date Recorded Body height Body mass index (BMI) Body weight Heart rate Respiratory rate Body temperature Oxygen saturation Systolic And Diastolic Provider Name and Address Organization Details Last Updated DateTime 175.26 cm 22 kg/m2 00005.2 6 g 72 /min 18 /min 97.8 [degF] 96 % 128/68 mm[Hg] Bethany Bob NP [address] [facility], [address], [place], [address], [facility] 5 19:59:36 Date Recorded Body height Heart rate Respiratory rate Body temperature Oxygen saturation Systolic And Diastolic Provider Name and Address Organization Details Last Updated DateTime 5 175.26 cm 68 /min 16 /min 97.5 [degF] 99 % 130/72 mm[Hg] JESSICA ESTRADA NP [address] [facility], [address], [place], [address], [facility] 5 11:45:53 Date Recorded Body height Body mass index (BMI) Body weight Heart rate Respiratory rate Body temperature Oxygen saturation Systolic And Diastolic Provider Name and Address Organization Details Last Updated DateTime 5 175.26 cm 21.4 kg/m2 67621.8 9 g 64 /min 16 /min 97.6 [degF] 99 % 124/66 mm[Hg] Ashly Good MD [address] [facility], [address], [place], [address], [facility] 5 20:21:02 Date Recorded Body height Heart rate Respiratory rate Body temperature Oxygen saturation Systolic And Diastolic Provider Name and Address Organization Details Last Updated DateTime 5 175.26 cm 72 /min 18 /min 97.6 [degF] 96 % 160/96 mm[Hg] JESSICA ESTRADA NP [address] [facility], [address], [place], [address], [facility] 5 13:59:36 Social History Question Answer Notes LastModified by Organizat ion Details LastModified Time Tobacco Smoking Status Former Smoker Bethany Bob NP [address] [facility], [address], [place], [address], [facility] 12/08/2024 12:40:02 Do You Have An Advance Directive? Yes Information not available 12/13/2024 What Is Your Code Status? Full Code Information not available 12/08/2024 Where Do You Live? Apartment [address] Floor, Niece Lives Downstairs Information not available 12/13/2024 Legal Guardian? No Informati on not available 12/08/2024 Do You Have A Medical Power Of Developer Relations Manager? Yes Not Invoked Information not available 12/13/2024 [...] Organization Details Recorded Time Tdap 01/02/2014 completed [facility] 12/08/2024 12:23:06 Td(adult) unspecified formulation 01/02/2014 [facility] 12/08/2024 12:23:17 Past Encounters Encounter ID Performer Location Encounter Start Date Encounter Closed Date Diagnosis/Indication Diagnosis SNOMED-CT Code Diagnosis ICD10 Code Diagnosis IMO Codes Diagnosis Note [id number] Bethany Bob NP [address] [address] 12/08/2024 12:51:56 12/14/2024 10:47:12 Closed fracture of multiple ribs 58755329 S22.41XD 82414432 right 5-7th rib fracturesc ontlidocai ne patchtyl prnsplint with pillowmoni tor resp status Recurrent falls 65386196 2 R29.6 8942515 fall with rib fxsupporti ve careroom close to nurses stationmon itor Acute kidney injury 1466 9001 N17.9 374779 found on admission felt resolved with ivfmonitor bmp and cbc here Asthenia 45363895 R53.1 02507 pt ot eval and treatwalke r needed, request for family to bring in, does not like walker here Hypertensive disorder 38 574195 I10 06796205 pt with low bp in er, ? 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 54276712 F10.10 850256 pt reports he has a sip of beer dailyER felt possibly related to fallsstart ed on thiamine 100 mg po qd in hospitalmu ltivitamin qdcounsele d in hospcont abstinence monitor Acute urin yuliana tract infection 662060737 N39.0 136445 treated with ceftriaxon e and transition ed to cefuroxime 500 mg po bid x 4 more daysmonito r vitals and labscbc and bmp weekly x 3 wed Sepsis 88026171 A41.9 7447027410 resolved wtih abx in hosp felt due to UTI Gastroesop hageal reflux disease without esophagitis 481297745 K21.9 406194 omeprazole 20 mg po qdmonitor Psoriasis 2737791 L40.9 58822 triamcinol one topically dailymonit or for need to adjust [id number] JESSICA ESTRADA NP [facility] [address] 12/09/2024 13:50:33 12/14/2024 11:07:25 Acute urinary tract infection 291501290 N39.0 601594 treated with ceftriaxon e in hosp., transition ed to cefuroxime 500 mg po bid x 4 more daysmonito r vitals and labscbc and bmp weekly x 3 wedCBC not done, check x 1 in am Sepsis 00021640 A41.9 8875609794 Carlin due to UTIImprove d with abxFinish cefuroxime Monitor VS, labs, sx. Closed fra cture of multiple ribs 05396677 S22.41XD 21324988 right 5-7th rib fracturesp ain not too bad contin ue:lidocai ne patchtylen ol prnsplint with pillowPT OT eval and tx.monitor resp status Recurrent falls 34646266 2 R29.6 8061630 fall with rib fxPT OT eval and tx.Baselin e right sided weakness, ambulation with walkerMoni tor safety, increased needs in community. Asthenia 67834166 R53.1 88775 see above, pt ot eval and treat Acute kidney injury 1466 9001 N17.9 258142 Improved with IVFEncoura ge hydrationA void nephrotoxi csMonitor labs q wed. x 3 Harmful pa ttern of use of alcohol 61895248 F10.10 961558 pt reports he has a sip of beer daily ER felt may be contributi ng to fallsstart ed on thiamine 100 mg po qd in hospital - continue herecontin ue MVI qdcounsele d in hosp, continue to encourage abstinence cont supportive caremonito r Hypertensive disorder 38 087993 I10 13442465 pt with low bp in er, ? syncopemed s adjusted at [facility] - off lisinopril and hydralazin eremains on amlodipine 10 mg po qdmonitor VS, labs; adjust meds prn Iron defic iency anemia 03944157 D50.9 33631900 found in hosp to have EBENEZER, unclear if he had this priorStart ed ferrous sulfate 324 mg po qd at [facility] - continuemo nitor CBC q wed. x 3, s/s active bleeding History of cerebrovascular accident 567201947 Z86.73 369355 hx of approx 20 years ago with right hemiparesi s, right arm contractur e, and garbled speech.Pt. reports using a walker at baselineSu spect residual deficits may also contributi ng to falls and safetyCont inue aspirin 81 mg po qdSeen by [employer] at [facility] - on reg. dietReferr ed to [employer] here as well.Famil y to bring in dentures from home - may need to consider soft/chopp ed diet in the mean time. Gastroesop hageal reflux disease without esophagitis 837427284 K21.9 170464 omeprazole 20 mg po qdmonitor GI sx. Psoriasis 2541466 L40.9 60193 Continue moisturize r and triamcinol one dailymonit or [id number] Ashly Good MD [address] [address] 12/13/2024 12:52:18 12/22/2024 17:08:16 Acute urinary tract infection 488103676 N39.0 176885 As above. Closed fra cture of multiple ribs 47512160 S22.41XD 79432474 No longer c/o pain.Denise nue lidocaine patch qd and APAP 650 mg q 4 hrs prn.Monito r resp status Recurrent falls 65021508 2 R29.6 4372860 With baseline imbalance due to hemiparesi s.Generall y does well with hemiwalker .Needs PT/OT for strengthen ing, balance, gait training, safety and function.C ontinue fall precaution s.Monitor for safety.Blaire ce looking in to getting chair lift for stairs as pt lives on 2nd floor. Asthenia 22897601 R53.1 62139 As above. Acute kidney injury 1466 9001 N17.9 205120 Back to baseline.C ontinue to avoid nephrotoxi c meds as able.Monit or labs.Renal consult prn. 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 Psoriasis 2941480 L40.9 75861 Continue moisturize r and triamcinol one dailyMonit or Fever 951355098 R50.81 813003 Temp was 103.8 on admission to ED. [...] to complete course.Mon itor vitals. Traumatic rhabdomyolysis 317624947 T79.6XXD 46856516 Mild rhabdo, resolved with IV fluids.Mon itor labs. Sepsis 10895174 A41.89 1041960 Was febrile and tachycardi c on admission, but BP remained in nl range.Reso lved with IV fluids.Als o txed with abx as above, but no source found.Ivette tor for recurrent sxs. Essential hypertension 56465603 I10 484078 Meds adjusted in hospital.B Ps good since here.Denise nue amlodipine 10 mg po qdMonitor BP and labs Right hemiparesis 053828 009 I69.351 7982307267 Usually does well with hemiwalker .He attributes his fall to hot weather and not having enough to eat.Contin ue ASA 81 mg po qdPT/OT as above. Dysarthria 7277335 R47.1 02648 Reportedly improved since he got his dentures.B ut while we are talking he has to keep pushing his dentures back in, they don't seem to fit well.May need dental consult.SL P to follow, consult rewritten. Expressive dysphasia 229 051687 R47.01 84172 With moderate word finding difficulty .[employer] consult. [id number] Bethany Bob NP [address] [address] 12/22/2024 09:17:30 12/23/2024 10:44:09 Fever 988023269 R50.81 720094 Temp was 103.8 on admission to ED. [...] to complete course.Mon itor vitals. Traumatic rhabdomyolysis 951859407 T79.6XXD 24305722 Mild rhabdo, resolved with IV fluids.Mon itor labs.labs stable as above Acute urin yuliana tract infection 652083594 N39.0 564386 As above. see hpiimprove d Sepsis 08110624 A41.89 2491178 Was febrile and tachycardi c on admission, but BP remained in nl range.Reso lved with IV fluids.Als o txed with abx as above, but no source found.Ivette tor for recurrent sxs. Closed fra cture of multiple ribs 30140214 S22.41XD 27500346 No pain todayConti nue lidocaine patch qd and APAP 650 mg q 4 hrs prn.Monito r resp status Recurrent falls 20290498 2 R29.6 7573041 With baseline imbalance due to hemiparesi s.Generall y does well with hemiwalker .Needs PT/OT for strengthen ing, balance, gait training, safety and function.C ontinue fall precaution s.Monitor for safety.per prior note: Niece looking in to getting chair lift for stairs as pt lives on 2nd floor. Asthenia 74153882 R53.1 52332 As above. Acute kidney injury 1466 9001 N17.9 918439 Back to baseline.C ontinue to avoid nephrotoxi c meds as able.Monit or labs.Renal consult prn. 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 Expressive dysphasia 229 978843 R47.01 12451 With moderate word finding difficulty .[employer] consult. Gastroesop hageal reflux disease without esophagitis 891258873 K21.9 564733 No current sxs.Contin ue omeprazole 20 mg qdMonitor GI sx. Psoriasis 3156613 L40.9 72966 Continue moisturize r and triamcinol one dailyMonit or [id number] JESSICA ESTRADA NP [address] [address] 01/04/2025 11:41:27 01/07/2025 07:52:02 Fever 528014308 R50.81 808164 Temp was 103.8 on admission to ED.Treated for possible UTI.No fevers since admission here.No s/s infection. Continue to monitor VS, labs, sx. Traumatic rhabdomyolysis 353940429 T79.6XXD 02029547 Mild rhabdo, resolved with IV fluids.BMP stable here, good po intake Acute urin yuliana tract infection 659957889 N39.0 116692 Improverd. Completed abx. in hosp.Monit or VS, labs, sx. for recurrence . Sepsis 22589449 A41.89 6411974 Resolved in hosp. with IV fluids and abx.Monito r VS, labs, s/s infection Closed fra cture of multiple ribs 26844171 S22.41XD 05769267 Pain improved.C ontinue lidocaine patch qd and APAP 650 mg q 4 hrs prn.Monito r and adjust tx. prn Recurrent falls 42963242 2 R29.6 3875788 With baseline imbalance due to hemiparesi s.Generall y does well with hemiwalker .Needs PT/OT for strengthen ing, balance, gait training, safety and function.C ontinue fall precaution s.Monitor for safety.per prior note: Niece looking in to getting chair lift for stairs as pt lives on floor. Asthenia 38051274 R53.1 45493 As above. Acute kidney injury 1466 9001 N17.9 114117 Back to baseline.C ontinue to avoid nephrotoxi c meds as able.Monit or labs.Renal consult prn. Harmful pa ttern of use of alcohol 53768313 F10.10 701355 Unclear EtOH hx.Continu e thiamine 100 mg qd and MVI qdContinue to encourage abstinence Essential hypertension 54122966 I10 726098 Meds adjusted in hospital.B Ps stable hereContin ue amlodipine 10 mg po qdMonitor BP and labs Iron defic iency anemia 02977958 D50.8 1494213 Unclear etiology.C ontinue ferrous sulfate 324 mg qd.Monitor labs.Consi reema GI consult Right hemiparesis 732590 009 I69.351 9621125026 Usually does well with hemiwalker .He attributes his fall to hot weather and not having enough to eat.Contin ue ASA 81 mg po qdPT/OT as above. Expressive dysphasia 229 830021 R47.01 09351 With moderate word finding difficulty .[employer] consult prn Gastroesop hageal reflux disease without esophagitis 223461003 K21.9 919220 No current sxs.Contin ue omeprazole 20 mg qdMonitor GI sx. Psoriasis 5235560 L40.9 67682 Continue moisturize r and triamcinol one dailyMonit or [id number] Ashly Good MD [address] [address] 01/10/2025 20:19:08 01/11/2025 13:41:37 Closed fracture of multiple ribs 25851590 S22.41XD 98014929 No longer has pain.Denise nue lidocaine patch qd and APAP as above.Ivette tor resp status Recurrent falls 61970951 2 R29.6 6827199 Improving. Continue PT/OT for strengthen ing, balance, gait training, safety and function.C ontinue fall precaution s.Monitor for safety.Blaire ce looking in to getting chair lift for stairs as pt lives on 2nd floor. Asthenia 31933721 R53.1 14761 As above. Essential hypertension 63246428 I10 220548 BP remains good.Denise nue amlodipine 10 mg po qdMonitor BP and labsMonthl y labs ordered. Right hemiparesis 831475 009 I69.351 1059482406 He c/o right arm pain from contractur es.Would like APAP scheduled. Will start APAP 1000 mg TID.Contin ue ASA 81 mg po qdPT/OT as below.. [id number] JESSICA ESTRADA NP [address] [place] [address] 01/18/2025 13:59:01 01/20/2025 14:23:27 Fever 572125469 R50.81 354787 Resolved.T emp was 103.8 on admission to ED.Treated for possible UTI.No fevers since admission here.No s/s infection. Continue to monitor VS, labs, sx. Traumatic rhabdomyolysis 324690202 T79.6XXD 34585145 REsolved.M ild rhabdo, resolved with IV fluids.BMP stable here, good po intake Acute urin yuliana tract infection 228916785 N39.0 264339 REsolved.C ompleted abx. in hosp.Monit or VS, labs, sx. for recurrence . Sepsis 19312526 A41.89 1340416 Resolved in hosp. with IV fluids and abx.Monito r VS, labs, s/s infection Closed fra cture of multiple ribs 47258397 S22.41XD 35813271 S/P fall.Pain improving. Continue lidocaine patch qd and APAP 1 gm tid.Workin g with rehabMonit or and adjust tx. prn Recurrent falls 92087136 2 R29.6 5590960 With baseline imbalance due to hemiparesi s.Generall y does well with hemiwalker .Continue PT/OT for strengthen ing, balance, gait training, safety and function.C ontinue fall precaution s.Monitor for safety.per prior note: Niece looking in to getting chair lift for stairs as pt lives on 2nd floor. Acute kidney injury 1466 9001 N17.9 432926 Back to baseline.C ontinue to avoid nephrotoxi c meds as able.Maint ain hydrationM onitor labs - currently stableRena l consult prn. Harmful pa ttern of use of alcohol 60818071 F10.10 783606 Unclear EtOH hx.Continu e thiamine 100 mg qd and MVI qdContinue to encourage abstinence Essential hypertension 46264773 I10 125374 Meds adjusted in hospital.B Ps elevated today, but other within better rangeConti nue amlodipine 10 mg po qdMonitor BP and labs Iron defic iency anemia 82242587 D50.8 9794701 Continue ferrous sulfate 324 mg qd.Monitor CBC - stable/imp rovedConsi reema GI consult Right hemiparesis 312479 009 I69.351 4542504714 Baseline use of hemiwalker .Continue ASA 81 mg po qd, APAP 1 gm tid for arm pain.PT/OT as above. Gastroesop hageal reflux disease without esophagitis 243054436 K21.9 760230 No current sxs.Contin ue omeprazole 20 mg qdMonitor GI sx. Psoriasis 5695063 L40.9 79138 Continue moisturize r and triamcinol one dailyMonit or Health Concerns Section Related Observation LastModified by Organization Detai ls LastModified Time None Recorded Concern Status LastModified by Organization Details LastModified Time None Recorded Advance Directives Directive Y: Payers Insurance Date Sequence Insurance Name Policy Number Policy Goodman Covered Member ID Goodman Member ID Guarantor Name 01/04/2025 1 [place]ARE [place] [employer] Devonte Anguiano [id number] Devonte Anguiano 01/04/2025 2 [place] [facility] Devonte Anguiano [id number] Devonte Anguiano Notes Date Note Type Note [...] gait and balance, he was transferred to [facility] for short-term physical rehabilitation. He was [...] of EtOH abuse. Ashly Good MD [address] [facility], [address], [place], [address], [facility] 12/13/2024 23:07:42 5 text/html Pt is seen [...] feels okay . Bethany Bob NP [address] [facility] [address], [address], [place], [address], [facility] 12/22/2024 20:14:02 5 text/html Devonte is seen today for a routine, 30 day visit. He is a 69 yo male, here at [facility] for continued care and rehab after [...] of EtOH abuse. JESSICA ESTRADA NP [address] [facility], [address], [place], [address], [facility] 01/04/2025 12:06:50 5 text/html I am seeing [...] of EtOH abuse. Ashly Good MD [address] [facility], [address], [place], [address], [facility] 01/10/2025 20:39:42 5 text/html Devonte is seen today for an acute visit. He is a 69 yo male, here at [facility] for continued care and rehab after [...] good spirits. Gait unsteady. Asking for his [employer], wants a good shave. Denies any complaints today, mostly focused on getting shaved. No concerns per staff.Med compliant.VSSLast labs 12/22, stable. PMH: HTN, hx of CVA with right hemiparesis/dysarthria/aph kasandra, GERD, psoriasis, anemia, epidermal cysts, and hx of EtOH abuse. JESSICA ESTRADA NP [address] [facility], [address], [place], [address], [facility] 01/18/2025 14:12:06
== END 2025-06-17 08:41 | disposition home or self-care (01) ==
LOC: HO.HOSX 08:40
PROVIDERS: Visit Provider Physician Assistant
DX: S42.201D Unspecified fracture of upper end of right humerus, subsequent encounter for fracture with routine healing (principal); M62.431 Contracture of muscle, right forearm; I69.351 Hemiplegia and hemiparesis following cerebral infarction affecting right dominant side; W19.XXXD Unspecified fall, subsequent encounter
CPT/HCPCS: 73030